=== PATIENT | female | born 1955 | race Caucasian/White ===

== ENCOUNTER → 2016-08-06 | Outpatient (CLI) | payer OTHER ==
--- OUTSIDE RECORDS SUMMARY | 2016-08-06 12:16 | XMS REPORT ---
Author LILIAM Montilla [facility] eClinicalWorks Address Unknown Phone Unavailable Care Team Providers Care Rate Marker Name Role Phone LILIAM ROCKWELL CP Unavailable Allergies, Adverse Reactions, Alerts Substance Reaction Event Type N.K.D.A. Info Not Available Non Drug Allergy Problems Problem Type Condition Code Onset Dates Condition Status Problem Essential hypertension I10 Active Assessment Type 2 diabetes mellitus without complication, without long-term current use of insulin E11.9 Active Problem Type 2 diabetes mellitus without complication, without long-term current use of insulin E11.9 Active Assessment Essential hypertension I10 Active Medications Medication Code System Code Instructions Start Date End Date Status Dosage Metformin HCl [facility] [address]-28 500 MG Orally Twice a day 1 tablet with meals Lisinopril [facility] [address]-29 10 mg Orally Once a day January 06, 2016 1 tablet Actos [facility] [address]-91 30 MG Orally Once a day January 06, 2016 1 tablet MetFORMIN HCl ER [facility] 2001 [address]-50 500 MG Orally twice a day January 06, 2016 1 tablet with evening meal Procedures Procedure Coding System Code Date MICROALBUMIN, SEMIQUANT CPT-4 42458 January 06, 2016 Office Visit, New Pt., Level 4 CPT-4 97713 January 06, 2016 GLYCATED HEMOGLOBIN TEST CPT-4 88490 January 06, 2016 Vital Signs Date/Time: January 06, 2016 Cardiac Monitoring Heart Rate 84 bpm Weight 172.3 lbs Height 64 in Blood Pressure Diastolic 76 mmHg Blood Pressure Systolic 148 mmHg Results No Known Results Summary Purpose eClinicalWorks Submission
--- NOTE | 2016-08-06 14:28 | Diagnostic Imaging Report ---
PROCEDURE: US Carotid Duplex Bilateral. TECHNIQUE: Multiple real-time grayscale images were obtained over the carotid arteries in various projections bilaterally. Additional duplex Doppler and color Doppler images were also obtained. INDICATION: Diabetes, hypertension, and tobacco use. FINDINGS: There are focally elevated velocities in the left internal carotid artery up to 264 cm/s. The ICA/CCA ratio on the left is 3.6. There are no focally elevated velocities in the right internal carotid artery. The right ICA/CCA ratio is 0.8. There is antegrade flow in both vertebral arteries. IMPRESSION: Focal plaque at the origin of the left internal carotid artery. Spectral analysis correlates with a 60-99% stenosis in the left internal carotid artery. No significant stenosis in the right internal carotid artery. Dictated by: Dictated on workstation # [id number]
== END ==
LOC: RAD 12:13
PROVIDERS: ATTEND Nurse Practitioner Adult Health
DX: E11.3211 Type 2 diabetes mellitus with mild nonproliferative diabetic retinopathy with macular edema, right eye (principal); I65.22 Occlusion and stenosis of left carotid artery
CPT/HCPCS: 93880

== ENCOUNTER → 2016-09-06 | Outpatient (CLI) | payer OTHER ==
[2016-09-06 11:56] LABS: ALBUMIN 3.8 G/DL (3.2-4.5); CREATININE SERUM 1.21 MG/DL (0.60-1.30); PHOSPHORUS 3.8 MG/DL (2.3-4.7)
== END ==
LOC: LAB 11:16
PROVIDERS: ATTEND Nurse Practitioner
DX: I77.9 Disorder of arteries and arterioles, unspecified (principal); R55 Syncope and collapse; R42 Dizziness and giddiness; I65.29 Occlusion and stenosis of unspecified carotid artery
CPT/HCPCS: 36415; 80069

== ENCOUNTER → 2016-09-06 | Outpatient (CLI) | payer OTHER ==
[~2016-09-06] MED LIST: CATHETER FLUSH 10 ML SYR IV PRN; REGADENOSON 0.4 MG/5 ML SYR (LEXISCAN) IV ONE
[2016-09-06 09:49] VITALS: BP 138/74
[2016-09-06 09:53] VITALS: BP 133/71
[2016-09-06 09:55] VITALS: BP 130/68
--- NOTE | 2016-09-12 08:22 | STRESS TEST ---
PROCEDURE PHYSICIAN: ROBERTH ALEXANDRA DATE OF PROCEDURE: 09/06/2016 RESTING AND POST REGADENOSON TECHNETIUM 99M TETROFOSMIN SPECT CT IMAGING ORDERING PHYSICIAN: Dr. Alexandra. PRIMARY PHYSICIAN: Dr. Castillo OTHER PHYSICIAN: Marla Melo APRN CLINICAL DIAGNOSES: 1. Carotid arterial disease. 2. Shortness of breath. Baseline images were carried out after injection of 10.41 mCi technetium 99m tetrofosmin. This was followed by 0.4 mg of regadenoson and 30.2 mCi of technetium 99m tetrofosmin for stress imaging. The electrocardiogram showed sinus rhythm at baseline. The electrocardiogram did not change significantly with the regadenoson infusion. Overall, the patient tolerated the procedure well. Review of images at rest and following stress, does not indicate any significant perfusion defects consistent with significant myocardial ischemia or infarction. Gated images show normal global left ventricular systolic function with normal regional wall motion. Left ventricular ejection fraction is calculated to be 73%. Left end-diastolic volume is 32 mL. TID is absent (1.07). CONCLUSION: 1. No evidence of any significant myocardial ischemia or infarction on this study. 2. Normal regional wall motion. 3. Normal global left ventricular systolic function with a calculated ejection fraction of 73%. 4. Normal left ventricular cavity size. Job ID: [id number] Dictated Date: 09/11/2016 16:59:31 Fish Receiver Date: 09/12/2016 08:18:47 / sybil LACY
== END ==
LOC: CARD 08:04
PROVIDERS: ATTEND Internal Medicine Cardiovascular Disease
DX: I77.9 Disorder of arteries and arterioles, unspecified (principal)
CPT/HCPCS: 78452; 93017

== ENCOUNTER → 2016-09-10 | Outpatient (CLI) | payer OTHER ==
--- NOTE | 2016-09-11 09:21 | ECHOCARDIOGRAPHY REPORT ---
PROCEDURE PHYSICIAN: ROBERTH ALEXANDRA DATE OF PROCEDURE: 09/10/2016 TWO DIMENSIONAL ECHOCARDIOGRAM REPORT PRIMARY PHYSICIAN: Dr. Castillo OTHER PHYSICIAN: Marla Melo APRN REFERRING PHYSICIAN: ORDERING PHYSICIAN: Dr. Alexandra INDICATION FOR THE PROCEDURE: Shortness of breath. MEASUREMENTS DERIVED VALUES LV DIAMETER (LAX) NORMALS NORMALS Diastolic 4.7 (3.6-5.2) Eject. Fract. (60%+/-6%) Systolic (2.3-3.9) Diastolic Vol. % Shortening (0.22-0.42) Systolic Vol. Aortic Root 2.9 IVS THICKNESS Diastolic 0.7 (0.6-1.1) LVPW THICKNESS Diastolic 1 (0.6-1.1) LA DIAMETER Systolic 3.7 (2.1-3.7) DESCRIPTION: Two dimensional echocardiography shows normal global left ventricular systolic function without distinct regional wall motion abnormality. Left ventricular ejection fraction is approximately 60%. Doppler imaging did not show significant valvular regurgitation or stenosis. Pulmonary artery systolic pressure estimated to be within normal limits. There is no evidence of significant intracardiac shunt on this transthoracic echocardiographic study. Inferior vena cava appears to be of normal size and appears mostly collapsed on this study. CONCLUSION: 1. Normal global left ventricular systolic function with an ejection fraction of 60%. 2. No evidence of significant valvular regurgitation or stenosis. 3. Pulmonary artery systolic pressure is estimated to be within normal limits. Job ID: [id number] Dictated Date: 09/11/2016 08:24:49 Syrup Mixer Helper Date: 09/11/2016 09:14:38 / sybil
== END ==
LOC: CARD 11:29
PROVIDERS: ATTEND Internal Medicine Cardiovascular Disease
DX: I77.9 Disorder of arteries and arterioles, unspecified (principal)
CPT/HCPCS: 93306

== ENCOUNTER → 2016-09-10 | Outpatient (CLI) | payer OTHER ==
[~2016-09-10] MED LIST changes: +IOHEXOL 350 MG/ML 100 ML (OMNIPAQUE 350) VIAL IV ONE; +NS 100 ML (IVPB) BAG IV ONE; -REGADENOSON 0.4 MG/5 ML SYR (LEXISCAN) IV ONE
[2016-09-10 09:14] LABS: ALBUMIN 3.8 G/DL (3.2-4.5); CREATININE SERUM 1.19 MG/DL (0.60-1.30); PHOSPHORUS 4.3 MG/DL (2.3-4.7); POTASSIUM 4.8 MMOL/L (3.6-5.0)
--- NOTE | 2016-09-10 12:23 | Diagnostic Imaging Report ---
PROCEDURE: CT angiography of the head and CT angiography of the neck with and without contrast. TECHNIQUE: Contiguous noncontrast images were obtained from the skull base through the vertex. After intravenous contrast administration, helical CT angiography of the neck was performed. Source data was reformatted into multiple MIP projections. Delayed post contrast acquisition was also obtained. INDICATION: Carotid artery stenosis suggested on ultrasound. FINDINGS: CTA NECK: The aortic arch is patent. There is normal variation of a direct origin of the left vertebral artery from the aortic arch. The left vertebral artery is small in caliber. The right vertebral artery is dominant. Both vertebral arteries appear patent without significant stenosis. The brachycephalic artery, the right subclavian artery and the right common carotid arteries appear patent with calcified plaque seen at the origin of the right internal carotid artery and bifurcation with estimated degree of stenosis of less than 50% at the origin of the right ICA. The right ECA is patent. On the left side, the left ECA is patent. There is prominent plaque at the distal aspect of the left common carotid artery extending to the left internal carotid artery proximal segment with suggestion of high-grade stenosis estimated at around 80%. The plaque length is around 2 cm extending from the distal common carotid into the proximal internal carotid artery. The external carotid artery is patent. The left subclavian artery appears patent. Soft tissue structures of the neck appear grossly unremarkable. There is a 4 mm indeterminate pulmonary nodule in the lateral aspect of the right upper lobe. CTA HEAD: Unenhanced scan through the head was first obtained which demonstrates no intracranial hemorrhage. The brain parenchyma appears unremarkable. Postcontrast scans demonstrate no enhancing lesion on the parenchymal phase scanning. Angiographic phase of the study demonstrates atherosclerotic plaque in the internal carotid artery on the right side intracranial segments with no high-grade stenosis. A small caliber of the A1 segment of the left anterior cerebral artery is seen with majority of the perfusion appears to be from the ACOM. 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 The left MCA is patent. The distal aspect of the basilar artery is small with well developed bilateral posterior communicating arteries representing the mean perfusion source for the SLEEVE [employer]OTTOM [employer]LLER bilaterally. 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 This appears to contribute to perfusion of the basilar artery proximal to the origin of the superior cerebellar arteries bilaterally. No other aneurysms are seen. There is no major vascular occlusion identified. The main dural venous sinuses appear patent. IMPRESSION: CTA NECK: 1. Prominent atherosclerotic plaque at the distal left CCA extending to the left ICA resulting in estimated 80% stenosis in the proximal left ICA. 2. Less than 50% stenosis in the right ICA. 3. The lateral right upper lobe 4 mm pulmonary nodule is indeterminate. A followup low dose CT chest without contrast in 6-12 months is recommended to observe this lesion. CTA HEAD: 1. 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 2. No intracranial central vascular high-grade stenosis or occlusion seen. Report was faxed to office of Sarahy Farmer by lexy at 12:23 p.m. Dictated by: Dictated on workstation # [id number]
== END ==
LOC: RAD 08:12
PROVIDERS: ATTEND Nurse Practitioner
DX: I65.22 Occlusion and stenosis of left carotid artery (principal); R42 Dizziness and giddiness; E11.9 Type 2 diabetes mellitus without complications; R55 Syncope and collapse
CPT/HCPCS: 36415; 70496; 70498; 80069

== ENCOUNTER → 2017-09-06 | Outpatient (CLI) | payer SELFPAY ==
[2017-09-06 10:49] LABS: CREATININE SERUM 1.63 MG/DL (0.60-1.30)
--- NOTE | 2017-09-06 13:02 | Diagnostic Imaging Report ---
PROCEDURE: MR imaging left lower extremity without contrast. TECHNIQUE: Multiplanar, multisequence non contrast enhanced MR imaging of the left lower extremity was accomplished. 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 FINDINGS: High-resolution images through the forefoot. The marrow signal appears normal throughout the metatarsals as well as the phalanges. The MP joints appear normal with no effusion. Interphalangeal joints are normal. The flexor and extensor tendons appear normal. Marker is placed over ulceration along the base of the fourth proximal phalanx. Ulceration extends just into the subcutaneous fat and does not extend to the surface of the flexor tendons. IMPRESSION: 1. Superficial ulcer base of the fourth digit left foot. No findings are seen to indicate abscess or osteomyelitis at this time. Dictated by: Dictated on workstation # [id number]
== END ==
LOC: RAD 10:13
PROVIDERS: ATTEND Internal Medicine
DX: E11.621 Type 2 diabetes mellitus with foot ulcer (principal); L97.522 Non-pressure chronic ulcer of other part of left foot with fat layer exposed
CPT/HCPCS: 36415; 82565; 84520

== ENCOUNTER → 2018-07-04 | Outpatient (CLI) | payer OTHER ==
[~2018-07-04] MED LIST changes: -CATHETER FLUSH 10 ML SYR IV PRN; -IOHEXOL 350 MG/ML 100 ML (OMNIPAQUE 350) VIAL IV ONE; -NS 100 ML (IVPB) BAG IV ONE; +RT-ALBUTEROL SULF 2.5 MG/3 ML PRE-MIX VIAL INH ONE
--- NOTE | 2018-07-04 17:47 | Diagnostic Imaging Report ---
INDICATION: Chest pain. TIME OF EXAM: 2:55 p.m. COMPARISON: No prior studies are available for comparison. FINDINGS: Heart size is normal. There is minimal linear density in the left base consistent with scarring or atelectasis. Otherwise, lungs are clear. No effusion or pneumothorax is seen. IMPRESSION: Minimal left basilar scarring or atelectasis. No acute feature is seen. Dictated by: Dictated on workstation # [id number]
--- NOTE | 2018-07-04 17:49 | Diagnostic Imaging Report ---
INDICATION: Back pain. TIME OF EXAM: 3:02 p.m. FINDINGS: Three views of the lumbar spine were obtained. Curvature and alignment are normal. Vertebral body heights and disc spaces are well maintained. No fracture or subluxation is seen. There is some degenerative spurring at multiple levels of the lumbar spine. Abdominal aorta is partially calcified. IMPRESSION: Mild lumbar spondylosis. No acute bony abnormality is detected. Dictated by: Dictated on workstation # [id number]
== END ==
LOC: RT 14:07
PROVIDERS: ATTEND Neuromusculoskeletal Medicine, Sports Medicine
DX: Z02.71 Encounter for disability determination (principal); M47.816 Spondylosis without myelopathy or radiculopathy, lumbar region
CPT/HCPCS: 71046; 72100; 94060; 94729

== ENCOUNTER 2018-12-27 13:06 | Inpatient (IN) | payer MEDICAID, OTHER ==
[~2018-12-27] VITALS: Ht 162.6 cm; Wt 106.1 kg
--- NOTE | 2018-12-27 13:47 | ED Respiratory ---
General Chief Complaint: Respiratory Problems Stated Complaint: SOB; NECK TIGHTNESS; SWOLLEN FEET Nursing Triage Note: patient reports increase SOA and neck tightness. Source: patient Exam Limitations: no limitations History of Present Illness Date Seen by Provider: Dec 27, 2018 Time Seen by Provider: 13:44 Initial Comments Patient complains of shortness of breath and leg swelling and tightness in neck and chest for "2 years". Symptoms worse over the past 3 days. She does smoke. She denies fevers or chills. She has a nonproductive cough. History of ? NSTEMI. Takes Plavix Allergies and Home Medications Allergies Coded Allergies: No Known Drug Allergies (Unverified , 12/27/18) Patient Home Medication List Home Medication List Reviewed: Yes Review of Systems Review of Systems Constitutional: malaise, weakness Respiratory: cough, dyspnea on exertion Cardiovascular: No chest pain; edema Gastrointestinal: No vomiting Musculoskeletal: no symptoms reported Skin: no symptoms reported Psychiatric/Neurological: No Symptoms Reported All Other Systems Reviewed Negative Unless Noted: Yes Past Bshpmqd-[id number]-Btpwvp Hx Patient Social History Alcohol Use: Denies Use Recreational Drug Use: No Smoking Status: Current Everyday Smoker Type Used: Cigarettes 2nd Hand Smoke Exposure: No Recent Foreign Travel: No Contact w/Someone Who Travel: No Recent Infectious Disease Expo: No Past Medical History Surgeries: Yes (bilateral carotid, bilateral knee) Respiratory: Yes Chronic Bronchitis, COPD Cardiac: Yes Hypertension Neurological: Yes Neuropathy Genitourinary: No Gastrointestinal: No Musculoskeletal: No Endocrine: No HEENT: No Cancer: No Psychosocial: Yes Anxiety, Depression Blood Disorders: No Physical Exam Vital Signs - First Documented 12/27/18 13:25 Temp 99.8 Pulse 86 Resp 16 B/P (MAP) 97/72 (80) Pulse Ox 95 O2 Delivery Room Air O2 Flow Rate 2.00 Capillary Refill : Less Than 3 Seconds Height: 5'4.00" Weight: 200lbs. oz. 90.059207jv; BMI Method:Stated General Appearance: WD/WN, no apparent distress Eyes: Bilateral Eye Normal Inspection, Bilateral Eye PERRL, Bilateral Eye EOMI HEENT: PERRL/EOMI, pharynx normal Neck: supple Respiratory: lungs clear, normal breath sounds, decreased breath sounds Cardiovascular: regular rate, rhythm, other (1+ pedal edema) Gastrointestinal: non tender, soft Extremities: normal inspection Neurologic/Psychiatric: alert, normal mood/affect Skin: normal color, warm/dry Focused Exam Lactate Level 12/27/18 13:34: Lactic Acid Level 1.64 Lactic Acid Level Laboratory Tests Test 12/27/18 13:34 Lactic Acid Level 1.64 MMOL/L (0.50-2.00) Progress/Results/Core Measures Suspected Sepsis Recent Fever Within 48 Hours: No Infection Criteria Present: None New/Unexplained Altered Menta: No Sepsis Screen: No Definite Risk SIRS Temperature:99.8 Pulse: 86 Respiratory Rate: 16 Laboratory Tests 12/27/18 13:34: White Blood Count 6.6 Blood Pressure 97 /72 Mean: 80 12/27/18 13:34: Lactic Acid Level 1.64 Laboratory Tests 12/27/18 13:34: Creatinine 1.49H, Platelet Count 189, Total Bilirubin 0.2 Results/Orders Lab Results Laboratory Tests Test 12/27/18 13:34 Range/Units White Blood Count 6.6 4.3-11.0 10^3/uL Red Blood Count 3.55 L 4.35-5.85 10^6/uL Hemoglobin 10.8 L 11.5-16.0 G/DL Hematocrit 36 35-52 % Mean Corpuscular Volume 101 H 80-99 FL Mean Corpuscular Hemoglobin 30 25-34 PG Mean Corpuscular Hemoglobin Concent 30 L 32-36 G/DL Red Cell Distribution Width 17.7 H 10.0-14.5 % Platelet Count 189 130-400 10^3/uL Mean Platelet Volume 10.2 7.4-10.4 FL Neutrophils (%) (Auto) 54 42-75 % Lymphocytes (%) (Auto) 31 12-44 % Monocytes (%) (Auto) 10 0-12 % Eosinophils (%) (Auto) 3 0-10 % Basophils (%) (Auto) 0 0-10 % Neutrophils # (Auto) 3.6 1.8-7.8 X 10^3 Lymphocytes # (Auto) 2.0 1.0-4.0 X 10^3 Monocytes # (Auto) 0.7 0.0-1.0 X 10^3 Eosinophils # (Auto) 0.2 0.0-0.3 10^3/uL Basophils # (Auto) 0.0 0.0-0.1 10^3/uL Sodium Level 145 135-145 MMOL/L Potassium Level 4.0 3.6-5.0 MMOL/L Chloride Level 103 98-107 MMOL/L Carbon Dioxide Level 31 21-32 MMOL/L Anion Gap 11 5-14 MMOL/L Blood Urea Nitrogen 21 H 7-18 MG/DL Creatinine 1.49 H 0.60-1.30 MG/DL Estimat Glomerular Filtration Rate 35 BUN/Creatinine Ratio 14 Glucose Level 183 H 70-105 MG/DL Lactic Acid Level 1.64 0.50-2.00 MMOL/L Calcium Level 8.2 L 8.5-10.1 MG/DL Corrected Calcium 8.7 8.5-10.1 MG/DL Magnesium Level 1.8 1.8-2.4 MG/DL Total Bilirubin 0.2 0.1-1.0 MG/DL Aspartate Amino Transf (AST/SGOT) 21 5-34 U/L Alanine Aminotransferase (ALT/SGPT) 20 0-55 U/L Alkaline Phosphatase 101 40-136 U/L Troponin I < 0.30 <0.30 NG/ML Pro-B-Type Natriuretic Peptide 4586.0 H <75.0 PG/ML Total Protein 6.9 6.4-8.2 GM/DL Albumin 3.4 3.2-4.5 GM/DL My Orders Orders - RENE SÁNCHEZ MD Cbc With Automated Diff (12/27/18 13:21) Magnesium (12/27/18 13:21) Chest 1 View Ap/Pa Only (12/27/18 13:21) Ekg Tracing (12/27/18 13:21) Comprehensive Metabolic Panel (12/27/18 13:21) O2 (12/27/18 13:21) Monitor-Rhythm Ecg Trace Only (12/27/18 13:21) Ed Iv/Invasive Line Start (12/27/18 13:21) Troponin I (12/27/18 13:21) Probnp Fs (12/27/18 13:21) Lactic Acid Analyzer (12/27/18 13:35) Furosemide Injection (Lasix Injection) (12/27/18 14:45) Medications Given in ED Current Medications Medications Dose Ordered Sig/Eileen Route Start Time Stop Time Status Last Admin Dose Admin Furosemide 80 mg ONCE ONCE IVP 12/27/18 14:45 12/27/18 14:46 DC 12/27/18 14:50 80 MG Vital Signs/I&O 7/13/19 7/13/19 13:25 13:51 Temp 99.8 Pulse 86 Resp 16 B/P (MAP) 97/72 (80) Pulse Ox 95 O2 Delivery Room Air Nasal Cannula O2 Flow Rate 2.00 2.00 Capillary Refill : Less Than 3 Seconds Blood Pressure Mean: 80 Progress Note : Time: 14:44 Progress Note Signs and symptoms consistent with congestive heart failure. 's admission for diuresis and oxygen. I spoke with Dr. Morris who agrees. ECG Initial ECG Impression Date: Dec 27, 2018 Initial ECG Impression Time: 13:46 Initial ECG Rate: 77 Initial ECG Rhythm: Normal Sinus Initial ECG Intervals: Normal Initial ECG Impression: Nonspecific Changes Departure Communication (Admissions) Time/Spoke to Admitting Phy: 14:45 Dr. Morris agrees with admission at [facility] Impression Primary Impression: CHF exacerbation Additional Impression: Hypoxia Disposition: 09 ADMITTED INPATIENT Condition: Stable Admissions Decision to Admit Reason: Admit from ER (Trauma) Decision to Admit/Date: Dec 27, 2018 Time/Decision to Admit Time: 14:45 Departure-Patient Inst. Referrals: KARO QUIJANO APRN (PCP/Family) Primary Care Physician RENE SÁNCHEZ MD Dec 27, 2018 13:47
[2018-12-27 13:49] LABS: HEMATOCRIT 36 % (35-52); HEMOGLOBIN 10.8 G/DL (11.5-16.0); MEAN CORPUSCULAR HEMOGLOBIN 30 PG (25-34); WHITE BLOOD COUNT 6.6 10^3/uL (4.3-11.0)
[2018-12-27 13:50] LABS: BASOPHILS % (AUTO) 0 % (0-10); EOSINOPHILS # (AUTO) 0.2 10^3/uL (0.0-0.3); EOSINOPHILS % (AUTO) 3 % (0-10); LYMPHOCYTES % (AUTO) 31 % (12-44); MEAN CORPUSCULAR HGB CONC 30 G/DL (32-36); MEAN CORPUSCULAR VOLUME 101 FL (80-99); MEAN PLATELET VOLUME 10.2 FL (7.4-10.4); MONOCYTES # (AUTO) 0.7 X 10^3 (0.0-1.0); MONOCYTES % (AUTO) 10 % (0-12); NEUTROPHILS # (AUTO) 3.6 X 10^3 (1.8-7.8); NEUTROPHILS % (AUTO) 54 % (42-75); PLATELET COUNT 189 10^3/uL (130-400); RED CELL DISTRIBUTION WIDTH 17.7 % (10.0-14.5)
[2018-12-27 14:12] LABS: ALBUMIN 3.4 GM/DL (3.2-4.5); BILIRUBIN,TOTAL 0.2 MG/DL (0.1-1.0); CALCIUM 8.2 MG/DL (8.5-10.1); CREATININE SERUM 1.49 MG/DL (0.60-1.30); TOTAL PROTEIN 6.9 GM/DL (6.4-8.2)
[2018-12-27 14:27] LABS: MAGNESIUM 1.8 MG/DL (1.8-2.4)
[2018-12-27] MEDS ORDERED: FOLI1TAB57 (14:28)
[2018-12-27] MEDS ORDERED: CLOP75TA69 PO (14:28)
[2018-12-27] MEDS ORDERED: PROP20TA5 (14:28)
[2018-12-27] MEDS ORDERED: ALBU8.5H2 (14:28)
[2018-12-27] MEDS ORDERED: TIOT18CA2 PO (14:28)
[2018-12-27] MEDS ORDERED: OMG1KC (14:28)
[2018-12-27] MEDS ORDERED: BUSP5TAB59 (14:28)
[2018-12-27] MEDS ORDERED: LSNP10T (14:28)
[2018-12-27] MEDS ORDERED: GABA-488 (14:28)
[2018-12-27] MEDS ORDERED: PIOG15TA2 (14:28)
[2018-12-27] MEDS ORDERED: SIMV20TA PO (14:28)
[2018-12-27] MEDS ORDERED: SERT25TA PO (14:28)
--- NOTE | 2018-12-27 14:29 | Diagnostic Imaging Report ---
PATIENT HISTORY: Shortness of air. TECHNIQUE: Single frontal view of the chest. COMPARISON: 07/04/2018. FINDINGS: There is mild cardiomegaly. No focal consolidation is seen. Lung volumes are normal. No pleural effusion or pneumothorax is seen. No acute osseous abnormality is seen. IMPRESSION: Mild cardiomegaly with no acute pulmonary abnormality seen. Dictated by: Dictated on workstation # [id number]
[2018-12-27] MEDS ORDERED: FUROSEMIDE 40 MG/4 ML INJ (LASIX) IVP ONE (14:45)
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
--- OUTSIDE RECORDS SUMMARY | 2018-12-27 14:50 | XMS REPORT ---
Author LILIAM Montilla [facility] [place] eClinicalWorks Address Unknown Phone Unavailable Care Team Providers Care Reliability Technicians Name Role Phone LILIAM ROCKWELL CP Unavailable [...] Date End Date Status Dosage Metformin HCl [facility] [address]-70 500 MG Orally Twice a day 1 tablet with meals Lisinopril [facility] [address]-18 10 mg Orally Once a day January 06, 2016 1 tablet Actos [facility] [address]-18 30 MG Orally Once a day January 06, 2016 1 tablet MetFORMIN HCl ER [facility] [address]-28 500 MG Orally twice a day January 06, 2016 1 tablet with evening meal Procedures Procedure Coding System Code Date MICROALBUMIN, SEMIQUANT CPT-4 47940 January 06, 2016 Office Visit, New Pt., Level 4 CPT-4 22786 January 06, 2016 GLYCATED HEMOGLOBIN TEST CPT-4 92354 January 06, 2016 Vital Signs Date/Time: January 06, 2016 Cardiac Monitoring Heart Rate 84 bpm Weight 172.3 lbs Height 64 in Blood Pressure Diastolic 76 mmHg Blood Pressure Systolic 148 mmHg Results No Known Results Summary Purpose eClinicalWorks Submission
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
--- OUTSIDE RECORDS SUMMARY | 2018-12-27 14:51 | XMS REPORT ---
Author LILIAM Montilla Organization [employer] Address Unknown Phone Unavailable Care Team Providers Care Showroom Sales Assistant Name Role Phone LILIAM ROCKWELL CP Unavailable Allergies No Known Allergies Problems Problem Type Condition Code Onset Dates Condition Status Problem Essential hypertension I10 Active Problem Type 2 diabetes mellitus without complication, without long-term current use of insulin E11.9 Active Medications No Known Medications Results No Known Results Summary Purpose [employer] Submission
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
--- OUTSIDE RECORDS SUMMARY | 2018-12-27 14:51 | XMS REPORT ---
Author LILIAM Montilla [facility] [place] [employer] Address Unknown Phone Unavailable Care Team Providers Care Design Agent Name Role Phone LILIAM ROCKWELL CP Unavailable Allergies No Known Allergies Problems Problem Type Condition Code Onset Dates Condition Status Problem Type 2 diabetes mellitus without complication, without long-term current use of insulin E11.9 Active Problem Essential hypertension I10 Active Problem Anxiety F41.9 Active Medications No Known Medications Results No Known Results Summary Purpose [employer] Submission
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
--- OUTSIDE RECORDS SUMMARY | 2018-12-27 14:51 | XMS REPORT ---
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 Unknown Non Drug Allergy Jun, Unknown SOCIAL HISTORY No smoking Hx information available PLAN OF CARE Activity Details Follow Up 3 Months, prn Reason:dm, htn VITAL SIGNS Height 64 in 2016-07-02 Weight 185.0 lbs 2016-07-02 Temperature 98.2 degrees Fahrenheit 2016-07-02 Heart Rate 118 bpm 2016-07-02 Respiratory Rate 20 2016-07-02 BMI 31.75 kg/m2 2016-07-02 Blood pressure systolic 140 mmHg 2016-07-02 Blood pressure diastolic 70 mmHg 2016-07-02 MEDICATIONS Medication Instructions Dosage Frequency Start Date End Date Duration Status Actos 30 MG Orally Once a day 1 tablet 24h Dec, 90 days Active Lisinopril 10 mg Orally Once a day 1 tablet 24h Dec, 90 days Active MetFORMIN HCl ER 500 MG Orally twice a day 1 tablet 12h Dec, 30 days Active BusPIRone HCl 10 mg Orally Twice a day 1 tablet 12h 30 Active RESULTS Name Result Date Reference Range A1C (IN HOUSE) 2016-07-02 A1C IN HOUSE 6.4 4.3 - 5.6 % Previous A1c 11.2 Lot 0664 Exp date CBC 2016-07-02 WBC 9.2 3.4-10.8 RBC 4.19 3.77-5.28 Hemoglobin 12.7 11.1-15.9 Hematocrit 38.9 34.0-46.6 MCV 93 79-97 MCH 30.3 26.6-33.0 MCHC 32.6 31.5-35.7 RDW 14.6 12.3-15.4 Platelets 256 150-379 Neutrophils 50 Lymphs 35 Monocytes 10 Eos 3 Basos 0 Neutrophils (Absolute) 4.7 1.4-7.0 Lymphs (Absolute) 3.2 0.7-3.1 Monocytes(Absolute) 0.9 0.1-0.9 Eos (Absolute) 0.3 0.0-0.4 Baso (Absolute) 0.0 0.0-0.2 Immature Granulocytes 2 Immature Grans (Abs) 0.2 0.0-0.1 LIPID PANEL 2016-07-02 Cholesterol, Total 180 100-199 Triglycerides 334 0-149 HDL Cholesterol 35 >39 VLDL Cholesterol Winston 67 5-40 LDL Cholesterol Calc 78 0-99 Comment: CMP 2016-07-02 Glucose, Serum 144 65-99 BUN 20 8-27 Creatinine, Serum 1.11 0.57-1.00 eGFR If NonAfricn Am 54 >59 eGFR If Africn Am 62 >59 BUN/Creatinine Ratio 18 11-26 Sodium, Serum 139 134-144 Potassium, Serum 4.9 3.5-5.2 Chloride, Serum 99 96-106 Carbon Dioxide, Total 24 18-29 Calcium, Serum 9.3 8.7-10.3 Protein, Total, Serum 7.6 6.0-8.5 Albumin, Serum 4.3 3.6-4.8 Globulin, Total 3.3 1.5-4.5 A/G Ratio 1.3 1.1-2.5 Bilirubin, Total <0.2 0.0-1.2 Alkaline Phosphatase, S 127 39-117 AST (SGOT) 17 0-40 ALT (SGPT) 22 0-32 PROCEDURES Procedure Date Ordered Related Diagnosis Body Site COMPLETE CBC W/AUTO DIFF WBC Jul 02, 2016 COMPREHEN METABOLIC PANEL Jul 02, 2016 Office Visit, Est Pt., Level 4 Jul 02, 2016 LIPID PANEL Jul 02, 2016 DEBBIE, ROUTINE* Jul 02, 2016 IMMUNIZATIONS No Known Immunizations
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
--- OUTSIDE RECORDS SUMMARY | 2018-12-27 14:51 | XMS REPORT ---
Author Author LILIAM ROCKWELL Organization [facility] Address [address] [place] [address] Care Team Providers Care Script Writer Name Role Phone JUAN F ROCKWELLNETTE Unavailable PROBLEMS Type Condition ICD9-CM Code VFD82-NH Code Onset Dates Condition Status SNOMED Code Problem Anxiety F41.9 Active 40475097 Problem Type 2 diabetes mellitus without complication, without long-term current use of insulin E11.9 Active 261153700 Problem Essential hypertension I10 Active 04281731 Assessment Type 2 diabetes mellitus without complication, without long-term current use of insulin E11.9 Feb, Active 345258158 ALLERGIES Substance Reaction Event Type Date Status N.K.D.A. Unknown Non Drug Allergy Feb, Unknown SOCIAL HISTORY No smoking Hx information available PLAN OF CARE VITAL SIGNS Height 64 in 2016-02-23 Weight 173.7 lbs 2016-02-23 Heart Rate 118 bpm 2016-02-23 Respiratory Rate 20 2016-02-23 BMI 29.81 kg/m2 2016-02-23 Blood pressure systolic 143 mmHg 2016-02-23 Blood pressure diastolic 76 mmHg 2016-02-23 MEDICATIONS Medication Instructions Dosage Frequency Start Date End Date Duration Status Lisinopril 10 mg Orally Once a day 1 tablet 24h Dec, Active MetFORMIN HCl ER 500 MG Orally twice a day 1 tablet 12h Dec, Active BusPIRone HCl 10 mg Orally Twice a day 1 tablet 12h Feb, Active Actos 30 MG Orally Once a day 1 tablet 24h Dec, Active RESULTS No Results PROCEDURES Procedure Date Ordered Related Diagnosis Body Site Office Visit, Est Pt., Level 4 Feb 23, 2016 IMMUNIZATIONS No Known Immunizations
--- OUTSIDE RECORDS SUMMARY | 2018-12-27 14:51 | XMS REPORT ---
Author LILIAM Montilla [facility] eClinicalWorks Address Unknown Phone Unavailable Care Team Providers Care Social Organization Professor Name Role Phone LILIAM ROCKWELL Unavailable Allergies No Known Allergies Problems Problem Type Condition Code Onset Dates Condition Status Problem Type 2 diabetes mellitus without complication, without long-term current use of insulin E11.9 Active Problem Essential hypertension I10 Active Problem Anxiety F41.9 Active Medications Medication Code System Code Instructions Start Date End Date Status Dosage BusPIRone HCl [facility] [address]-15 10 mg Orally Twice a day Feb 23, 2016 1 tablet Results No Known Results Summary Purpose eClinicalWorks Submission
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
--- OUTSIDE RECORDS SUMMARY | 2018-12-27 14:52 | XMS REPORT ---
Author LILIAM Montilla [facility] eClinicalWorks Address Unknown Phone Unavailable Care Team Providers Care Rolling Attendant Name Role Phone LILIAM ROCKWELL CP Unavailable Allergies No Known Allergies Problems Problem Type Condition Code Onset Dates Condition Status Problem Essential hypertension I10 Active Problem Type 2 diabetes mellitus without complication, without long-term current use of insulin E11.9 Active Medications No Known Medications Vital Signs Date/Time: January 13, 2016 Blood Pressure Diastolic 62 mmHg Blood Pressure Systolic 132 mmHg Height 64 in Results No Known Results Summary Purpose eClinicalWorks Submission
--- OUTSIDE RECORDS SUMMARY | 2018-12-27 14:52 | XMS REPORT ---
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 Active 735038580 Problem Obesity (BMI 30.0-34.9) E66.9 Active 034817236894929 Problem Left-sided carotid artery disease I77.9 Active 403233849 Problem Type 2 diabetes mellitus without complication, without long-term current use of insulin E11.9 Active 640588041 Problem Essential hypertension I10 Active 76364578 Problem Carotid art occ w/o infarc I65.29 Active 569760709 Problem Anxiety F41.9 Active 90072188 ALLERGIES No Information SOCIAL HISTORY Never Assessed PLAN OF CARE VITAL SIGNS MEDICATIONS Unknown Medications RESULTS No Results PROCEDURES No Known procedures IMMUNIZATIONS No Known Immunizations MEDICAL (GENERAL) HISTORY Type Description Date Medical History Diabetes Type II Surgical History ACL repair on R knee 6981-9766 Hospitalization History 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
--- OUTSIDE RECORDS SUMMARY | 2018-12-27 14:52 | XMS REPORT ---
Author LILIAM Montilla [facility] eClinicalWorks Address Unknown Phone Unavailable Care Team Providers Care Tile And Marble Installer Name Role Phone LILIAM ROCKWELL CP Unavailable Allergies No Known Allergies Problems Problem Type Condition Code Onset Dates Condition Status Problem Type 2 diabetes mellitus without complication, without long-term current use of insulin E11.9 Active Problem Essential hypertension I10 Active Problem Anxiety F41.9 Active Medications No Known Medications Results No Known Results Summary Purpose eClinicalWorks Submission
--- OUTSIDE RECORDS SUMMARY | 2018-12-27 14:53 | XMS REPORT | Continuity of Care Document ---
Author Organization Unknown Address Unknown Allergies There is no data. Medications There is no data. Problems There is no data. Procedures There is no data. Results Test Result Range THYROID ANALYZER - 11/29/17 11:57 TSH 2.65 mIU/L 0.40-4.50 CMP - 03/07/18 09:47 GLUCOSE 157 mg/dL 65-99 UREA NITROGEN (BUN) 50 mg/dL 7-25 CREATININE 2.00 mg/dL 0.50-0.99 eGFR NON-AFR. ANDORRAN 26 mL/min/1.73m2 > OR=60 eGFR 30 mL/min/1.73m2 > OR=60 BUN/CREATININE RATIO 25 (calc) 6-22 SODIUM 138 mmol/L 135-146 POTASSIUM 5.6 mmol/L 3.5-5.3 CHLORIDE 108 mmol/L 98-110 CARBON DIOXIDE 24 mmol/L 20-32 CALCIUM 8.8 mg/dL 8.6-10.4 PROTEIN, TOTAL 7.6 g/dL 6.1-8.1 ALBUMIN 4.0 g/dL 3.6-5.1 GLOBULIN 3.6 g/dL (calc) 1.9-3.7 ALBUMIN/GLOBULIN RATIO 1.1 (calc) 1.0-2.5 BILIRUBIN, TOTAL 0.3 mg/dL 0.2-1.2 ALKALINE PHOSPHATASE 91 U/L 33-130 AST 27 U/L 10-35 ALT 32 U/L 6-29 LIPID PANEL - 12/01/18 13:14 CHOLESTEROL, TOTAL 112 mg/dL <200 HDL CHOLESTEROL 40 mg/dL >50 TRIGLYCERIDES 162 mg/dL <150 LDL-CHOLESTEROL 48 mg/dL (calc) NRG CHOL/HDLC RATIO 2.8 (calc) <5.0 NON HDL CHOLESTEROL 72 mg/dL (calc) <130 CMP - 12/01/18 13:14 GLUCOSE 135 mg/dL 65-139 UREA NITROGEN (BUN) 34 mg/dL 7-25 CREATININE 1.68 mg/dL 0.50-0.99 eGFR NON-AFR. ANDORRAN 32 mL/min/1.73m2 > OR=60 eGFR 37 mL/min/1.73m2 > OR=60 BUN/CREATININE RATIO 20 (calc) 6-22 SODIUM 137 mmol/L 135-146 POTASSIUM 4.1 mmol/L 3.5-5.3 CHLORIDE 106 mmol/L 98-110 CARBON DIOXIDE 23 mmol/L 20-32 CALCIUM 8.9 mg/dL 8.6-10.4 PROTEIN, TOTAL 7.5 g/dL 6.1-8.1 ALBUMIN 4.0 g/dL 3.6-5.1 GLOBULIN 3.5 g/dL (calc) 1.9-3.7 ALBUMIN/GLOBULIN RATIO 1.1 (calc) 1.0-2.5 BILIRUBIN, TOTAL 0.4 mg/dL 0.2-1.2 ALKALINE PHOSPHATASE 101 U/L 33-130 AST 31 U/L 10-35 ALT 23 U/L 6-29 CBC - 12/01/18 13:14 WHITE BLOOD CELL COUNT 5.7 Thousand/uL 3.8-10.8 RED BLOOD CELL COUNT 4.05 Million/uL 3.80-5.10 HEMOGLOBIN 12.1 g/dL 11.7-15.5 HEMATOCRIT 38.6 % 35.0-45.0 MCV 95.3 fL 80.0-100.0 MCH 29.9 pg 27.0-33.0 MCHC 31.3 g/dL 32.0-36.0 RDW 16.2 % 11.0-15.0 PLATELET COUNT 200 Thousand/uL 140-400 MPV 10.1 fL 7.5-12.5 ABSOLUTE NEUTROPHILS 3295 cells/uL 7310-4475 ABSOLUTE LYMPHOCYTES 1636 cells/uL 850-3900 ABSOLUTE MONOCYTES 536 cells/uL 200-950 ABSOLUTE EOSINOPHILS 211 cells/uL 15-500 ABSOLUTE BASOPHILS 23 cells/uL 0-200 NEUTROPHILS 57.8 % NRG LYMPHOCYTES 28.7 % NRG MONOCYTES 9.4 % NRG EOSINOPHILS 3.7 % NRG BASOPHILS 0.4 % NRG A1C - 12/01/18 13:14 HEMOGLOBIN A1c 6.2 % of total Hgb <5.7 BMP - 12/17/18 14:42 GLUCOSE 129 mg/dL 65-99 UREA NITROGEN (BUN) 14 mg/dL 7-25 CREATININE 1.33 mg/dL 0.50-0.99 eGFR NON-AFR. ANDORRAN 42 mL/min/1.73m2 > OR=60 eGFR 49 mL/min/1.73m2 > OR=60 BUN/CREATININE RATIO 11 (calc) 6-22 SODIUM 143 mmol/L 135-146 POTASSIUM 3.8 mmol/L 3.5-5.3 CHLORIDE 105 mmol/L 98-110 CARBON DIOXIDE 32 mmol/L 20-32 CALCIUM 8.8 mg/dL 8.6-10.4 Encounters ACCT No. Visit Date/Time Discharge Status Pt. Type Provider Facility Loc./Unit Complaint [id number] 12/23/2018 16:00:00 12/23/2018 23:59:[address] [facility] [id number] 12/17/2018 14:45:00 Document Registration [id number] 12/01/2018 13:15:00 Document Registration [id number] 03/07/2018 09:00:00 Document Registration [id number] 11/29/2017 10:00:00 Document Registration
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
--- OUTSIDE RECORDS SUMMARY | 2018-12-27 15:09 | XMS REPORT | Continuity of Care Document ---
[...] 7-25 CREATININE 2.00 mg/dL 0.50-0.99 eGFR NON-AFR. KOSOVAN 26 mL/min/1.73m2 > OR=60 eGFR 30 mL/min/1.73m2 [...] 7-25 CREATININE 1.68 mg/dL 0.50-0.99 eGFR NON-AFR. KOSOVAN 32 mL/min/1.73m2 > OR=60 eGFR 37 mL/min/1.73m2 [...] 10.1 fL 7.5-12.5 ABSOLUTE NEUTROPHILS 3295 cells/uL 8146-9365 ABSOLUTE LYMPHOCYTES 1636 cells/uL 850-3900 ABSOLUTE MONOCYTES [...] 7-25 CREATININE 1.33 mg/dL 0.50-0.99 eGFR NON-AFR. KOSOVAN 42 mL/min/1.73m2 > OR=60 eGFR 49 mL/min/1.73m2 > OR=60 BUN/CREATININE RATIO 11 (calc) 6-22 SODIUM 143 mmol/L 135-146 POTASSIUM 3.8 mmol/L 3.5-5.3 CHLORIDE 105 mmol/L 98-110 CARBON DIOXIDE 32 mmol/L 20-32 CALCIUM 8.8 mg/dL 8.6-10.4 Encounters ACCT No. Visit Date/Time Discharge Status Pt. Type Provider Facility Loc./Unit Complaint [id number] 12/23/2018 16:00:00 12/23/2018 23:59:59 [facility] [id number] 12/17/2018 14:45:00 Document Registration [id number] 12/01/2018 13:15:00 Document Registration [id number] 03/07/2018 09:00:00 Document Registration [id number] 11/29/2017 10:00:00 Document Registration
[2018-12-27 16:40] VITALS: BP 140/67
[2018-12-27 20:00] VITALS: BP 135/74
[2018-12-27] MEDS: FUROSEMIDE 40 MG/4 ML INJ (LASIX) IVP SCH (20:59)
[2018-12-28] VITALS: BP 125/74
[2018-12-28] MEDS: PROPRANOLOL 20 MG (INDERAL) TABLET PO SCH ×3 (00:21→20:45)
[2018-12-28] MEDS: GABAPENTIN 100 MG (NEURONTIN) CAP PO SCH ×4 (00:21→20:45)
[2018-12-28] MEDS: FUROSEMIDE 40 MG/4 ML INJ (LASIX) IVP SCH ×4 (03:00→20:46)
[2018-12-28 04:00] VITALS: BP 118/75
[2018-12-28] MEDS: CLOPIDOGREL 75 MG (PLAVIX) TABLET PO SCH (08:25)
[2018-12-28 12:00] VITALS: BP 115/54
[2018-12-28 13:03] VITALS: BP 118/75
--- NOTE | 2018-12-28 14:22 | Consultation-Cardiology ---
HPI-Cardiology Cardiology Consultation: Date of Consultation 12/28/18 Date of Admission Attending Physician Coreen Morris MD Admitting Physician Dennise Morin Aprn Consulting Physician Radha OSPINA MD HPI: Time Seen by a Provider: 14:00 Chief Complaint: Shortness of breath This is a 63-year-old lady with no known cardiac history. She is an active smoker who presents with shortness of breath for the last 2 years however became worse in the last few days. She denies any chest pain. Nonproductive cough. No syncope, near-syncope or palpitations. Review of Systems-Cardiology Review of Systems Constitutional: As described under HPI; No As described under HPI, No no symptoms reported, No chills, No fever, No lightheadedness Eyes: No As described under HPI, No no symptoms reported, No blindness, No blurred vision, No contact lenses, No drainage, No decreased acuity, No foreign body sensation, No pain, No vision change Ears/Nose/Throat: No As described under HPI, No no symptoms reported, No chroni c hearing loss, No ear discharge, No ear pain, No nasal drainage, No ulcerations Respiratory: No no symptoms reported; As described under HPI; No As described under HPI, No cough, No orthopnea; shortness of breath; No SOB with excertion Cardiovascular: No no symptoms reported; As described under HPI; No As described under HPI, No chest pain, No edema, No irregular heart rate, No lightheadedness, No palpitations Gastrointestinal: No no symptoms reported, No As described under HPI, No abdomen distended, No abdominal pain, No blood streaked bowels, No constipation, No diarrhea, No nausea, No vomiting, No stool coloration changes Genitourinary: No As described under HPI, No burning, No dysuria, No discharge, No frequency, No flank pain, No hematuria, No urgency : Yes : No Skin: No rash, No skin related problems, No ulcerations Psychiatric/Neurological: No anxiety, No depression, No seizure, No focal weakness, No syncope Hematologic: No bleeding abnormalities All Other Systems Reviewed Negative Unless Noted: Yes MEU-Vyvqms-Ximefw Hx Patient Social History Alcohol Use: Denies Use Recreational Drug Use: No Smoking Status: Current Everyday Smoker Type Used: Cigarettes 2nd Hand Smoke Exposure: No Recent Foreign Travel: No Recent Infectious Disease Expo: No Hospitalization with Isolation: Denies Past Medical History PMH As described under Assessment. Family Medical History Family History: Cardiovascular disease Hypertension 19 FATHER Allergies and Home Medications Allergies Coded Allergies: No Known Drug Allergies (Unverified , 12/27/18) Patient Home Medication List Home Medication List Reviewed: Yes Physical Exam-Cardiology Physical Exam Vital Signs/I&O 12/28/18 12/28/18 12/28/18 12/28/18 04:00 08:00 08:30 08:41 Temp 97.0 Pulse 61 68 Resp 20 B/P (MAP) 118/75 (89) Pulse Ox 96 96 O2 Delivery Room Air Nasal Cannula Nasal Cannula O2 Flow Rate 2.00 2.00 12/28/18 12/28/18 12:00 13:03 Temp 98.2 Pulse 75 73 Resp 18 B/P (MAP) 115/54 (74) Pulse Ox 92 94 O2 Delivery Room Air FiO2 28 12/28/18 00:00 Intake Total 730 ml Output Total 1700 ml Balance -970 ml Capillary Refill : Less Than 3 Seconds Constitutional: appears stated age, AAO x 3; No apparent distress; well- developed, well-nourished HEENT: PERRL; No normal ENT inspection, No TMs normal, No pharynx normal, No scleral icterus (R), No scleral icterus (L), No pale conjunctivae (R), No pale conjunctivae (L), No photophobia, No TM abnormal (R), No TM abnormal (L), No pharyngeal erythema, No tonsillar exudate, No other, No discharge, No EOMI; hearing is well preserved; No hard of hearing; oral hygience is good; No ulceration, No xanthelasmas are seen Neck: No non-tender, No full range of motion, No supple, No normal inspection, No carotid bruit, No limited range of motion, No lymphadenopathy (R), No lymphadenopathy (L), No tender lateral, No tender midline, No thyromegaly, No other; carotid pulses are 2 + bilaterally; No with good upstrokes Respiratory: No accessory muscle use, No respiratory distress, No chest tender, No chest expansion is symmetric; chest is bilaterally symmetric; No lungs clear to percussion; lungs clear to auscultation; No crackles, No rhonchi, No rales, No stridor, No wheezing, No pleural rub, No other Cardiovascular: regular rate-rhythm; No irregularly irregular, No extra beats, No parasternal heave is noted, No JVD, No edema, No bradycardia, No tachycardia, No point of maximal impulse, No cardiac thrills are palpable; S1 and S2; No gallop/S3, No gallop/S4, No diastolic murmur, No systolic murmur, No friction rub, No click, No other Gastrointestinal: No tender, No soft, No round, No distended, No pulsatile mass, No organomegaly, No guarding, No rebound, No tenderness, No hernia, No mass, No audible bowel sounds, No abnormal bowel sounds, No abdominal bruits, No spleenomegaly, No other Rectal: deferred Extremities: No normal range of motion, No non-tender, No normal inspection, No pedal edema, No calf tenderness, No normal capillary refill, No pelvis stable, No calf tenderness, No inflammation, No pedal edema, No slow capillary refill, No swelling, No other, No abrasion, No clubbing, No cyanosis, No ecchymosis, No laceration, No no lower extremity edema bilateral, No significant edema, No tenderness, No wound Neurologic/Psychiatric: no motor/sensory deficits, alert, normal mood/affect, oriented x 3, power is 5/5 both on sides Skin: No normal color, No warm/dry, No cyanosis, No cool, No diaphoresis, No damp, No ecchymosis, No jaundice, No mottled, No pallor, No rash, No tattoos/piercings, No ulcerations, No rash on exposed areas, No ulcerations on exposed areas, No other Data Review Labs Laboratory Tests 12/28/18 07:30: Thyroid Stimulating Hormone (TSH) 5.33H ECG Impression ECG Initial ECG Rhythm: Normal Sinus Initial ECG Impression: Nonspecific Changes A/P-Cardiology Assessment/Admission Diagnosis Shortness of breath, elevated BNP, Chest tightness, Active smoking, Possible COPD Plan Shortness of breath, elevated BNP, check echocardiogram. Continue IV Lasix. Chest tightness, nuclear stress test in the morning. Active smoking, okay cessation was recommended. Possible COPD Thank you for your consultation. Please call me if you have any questions. Nicole Ospina MD, FACP, FACC, FSCAI, FHRS, CCDS Interventional Cardiology Cardiac Electrophysiology Vascular Medicine and Endovascular Interventions Clinical Quality Measures DVT/VTE Risk/Contraindication: Risk Factor Score Per Nursin RFS Level Per Nursing on Admit: 4+=Very High Radha OSPINA MD Dec 28, 2018 2:22 pm
[2018-12-28] MEDS: RT-ALBUTEROL SULF 2.5 MG/3 ML PRE-MIX VIAL INH SCH ×3 (15:13→22:05)
[2018-12-28] MEDS ORDERED: REGADENOSON 0.4 MG/5 ML SYR (LEXISCAN) IV ONE (15:15)
[2018-12-28 15:59] VITALS: BP 127/59
[2018-12-28] MEDS ORDERED: RT-ALBUTEROL SULF 2.5 MG/3 ML PRE-MIX VIAL INH PRN (16:00)
--- NOTE | 2018-12-28 16:37 | History & Physical ---
HPI History of Present Illness: 63 yo F that presents with shortness of breath for the last few weeks that has been progressively worse. Denies any chest pain or palpitations. Denies any h/o CAD, CVA. She has been smoking since she was a teenager. She has noticed increase swelling in her legs for the last few weeks. She was placed on lasix for 1 week by PCP and that seemed to improve swelling. Source: patient, family (daughter) Exam Limitations: no limitations Date seen by provider: Dec 28, 2018 Time Seen by Provider: 08:15 Attending Physician Coreen Morris MD PCP Dennise Morin Aprn Consult Date of Admission Dec 27, 2018 at 15:00 Home Medications Home Medications Reviewed patient Home Medication Reconciliation performed by pharmacy medication reconciliations blow mold technician and/or nursing. Patients Allergies have been reviewed. Allergies Coded Allergies: No Known Drug Allergies (Unverified , 12/27/18) CBJ-Uayiwm-Wehywh Hx Patient Social History Alcohol Use: Denies Use Recreational Drug Use: No Smoking Status: Current Everyday Smoker Type Used: Cigarettes 2nd Hand Smoke Exposure: No Recent Foreign Travel: No Contact w/other who traveled: No Recent Infectious Disease Expo: No Past Medical History Tobacco Use Family Medical History Family History: Cardiovascular disease Hypertension 19 FATHER Review of Systems ([facility]) Constitutional: No chills, No fever; weakness EENTM: no symptoms reported; No nose congestion, No throat pain, No throat swelling Respiratory: cough, dyspnea on exertion; No hemoptysis Cardiovascular: No chest pain; edema; No palpitations Gastrointestinal: no symptoms reported; No abdominal pain, No constipation, No diarrhea, No nausea, No vomiting Genitourinary: no symptoms reported; No dysuria, No frequency, No hematuria : No Musculoskeletal: joint pain Skin: no symptoms reported; No lesions, No rash Psychiatric/Neurological: No Symptoms Reported Reviewed Test Results Reviewed Test Results Lab Laboratory Tests Test 12/27/18 13:34 12/28/18 07:30 Range/Units White Blood Count 6.6 4.3-11.0 10^3/uL Red Blood Count 3.55 L 4.35-5.85 10^6/uL Hemoglobin 10.8 L 11.5-16.0 G/DL Hematocrit 36 35-52 % Mean Corpuscular Volume 101 H 80-99 FL Mean Corpuscular Hemoglobin 30 25-34 PG Mean Corpuscular Hemoglobin Concent 30 L 32-36 G/DL Red Cell Distribution Width 17.7 H 10.0-14.5 % Platelet Count 189 130-400 10^3/uL Mean Platelet Volume 10.2 7.4-10.4 FL Neutrophils (%) (Auto) 54 42-75 % Lymphocytes (%) (Auto) 31 12-44 % Monocytes (%) (Auto) 10 0-12 % Eosinophils (%) (Auto) 3 0-10 % Basophils (%) (Auto) 0 0-10 % Neutrophils # (Auto) 3.6 1.8-7.8 X 10^3 Lymphocytes # (Auto) 2.0 1.0-4.0 X 10^3 Monocytes # (Auto) 0.7 0.0-1.0 X 10^3 Eosinophils # (Auto) 0.2 0.0-0.3 10^3/uL Basophils # (Auto) 0.0 0.0-0.1 10^3/uL Sodium Level 145 135-145 MMOL/L Potassium Level 4.0 3.6-5.0 MMOL/L Chloride Level 103 98-107 MMOL/L Carbon Dioxide Level 31 21-32 MMOL/L Anion Gap 11 5-14 MMOL/L Blood Urea Nitrogen 21 H 7-18 MG/DL Creatinine 1.49 H 0.60-1.30 MG/DL Estimat Glomerular Filtration Rate 35 BUN/Creatinine Ratio 14 Glucose Level 183 H 70-105 MG/DL Lactic Acid Level 1.64 0.50-2.00 MMOL/L Calcium Level 8.2 L 8.5-10.1 MG/DL Corrected Calcium 8.7 8.5-10.1 MG/DL Magnesium Level 1.8 1.8-2.4 MG/DL Total Bilirubin 0.2 0.1-1.0 MG/DL Aspartate Amino Transf (AST/SGOT) 21 5-34 U/L Alanine Aminotransferase (ALT/SGPT) 20 0-55 U/L Alkaline Phosphatase 101 40-136 U/L Troponin I < 0.30 <0.30 NG/ML Pro-B-Type Natriuretic Peptide 4586.0 H <75.0 PG/ML Total Protein 6.9 6.4-8.2 GM/DL Albumin 3.4 3.2-4.5 GM/DL Thyroid Stimulating Hormone (TSH) 5.33 H 0.35-4.94 UIU/ML Test 12/28/18 07:30 Range/Units Thyroid Stimulating Hormone (TSH) 5.33 H 0.35-4.94 UIU/ML Physical Exam-([facility]) Physical Exam Vital Signs VS - Last 72 Hours, by Label 12/27/18 12/27/18 12/27/18 12/27/18 13:25 13:51 15:52 16:40 Temp 99.8 98.0 97.8 Pulse 86 70 70 Resp 16 22 20 B/P (MAP) 97/72 (80) 128/55 (79) 140/67 (91) Pulse Ox 95 96 93 O2 Delivery Room Air Nasal Cannula Room Air O2 Flow Rate 2.00 2.00 12/27/18 12/27/18 12/27/18 12/28/18 17:00 20:00 20:45 00:00 Temp 97.5 97.2 Pulse 75 65 Resp 18 18 B/P (MAP) 135/74 (94) 125/74 (91) Pulse Ox 93 99 97 O2 Delivery Room Air Room Air Nasal Cannula Room Air O2 Flow Rate 2.00 2.00 12/28/18 12/28/18 12/28/18 12/28/18 04:00 08:00 08:30 08:41 Temp 97.0 Pulse 61 68 Resp 20 B/P (MAP) 118/75 (89) Pulse Ox 96 96 O2 Delivery Room Air Nasal Cannula Nasal Cannula O2 Flow Rate 2.00 2.00 12/28/18 12/28/18 12/28/18 12/28/18 12:00 13:03 15:13 15:59 Temp 98.2 97.7 Pulse 75 73 70 Resp 18 18 B/P (MAP) 115/54 (74) 127/59 (81) Pulse Ox 92 94 95 94 O2 Delivery Room Air Nasal Cannula Nasal Cannula O2 Flow Rate 2.00 2.00 FiO2 28 Capillary Refill : Less Than 3 Seconds General Appearance: WD/WN, no apparent distress HEENT: PERRL/EOMI, pharynx normal Neck: non-tender, full range of motion, supple Respiratory: chest non-tender, lungs clear, normal breath sounds, no respiratory distress, no accessory muscle use Cardiovascular: normal peripheral pulses, regular rate, rhythm, no murmur Gastrointestinal: normal bowel sounds, non tender, soft, no organomegaly Back: no CVA tenderness, no vertebral tenderness Extremities: no calf tenderness, pedal edema (2+ pitting edema) Neurologic/Psychiatric: air and water tester II-XII nml as tested, no motor/sensory deficits, alert, normal mood/affect, oriented x 3 Skin: normal color, warm/dry Lymphatic: no adenopathy Assessment/Plan Assessment/Plan Admission Status: Inpatient Order (span 2 midnights) Reason for Inpatient Admission: New diagnosis of CHF (1) CHF exacerbation Status: Acute Assessment & Plan: - Echo pending, continue IV lasix Qualifiers: Qualified Codes: I50.9 - Heart failure, unspecified (2) Hypoxia Status: Acute Assessment & Plan: - Titrate oxygen as tolerated (3) Acute kidney failure Status: Acute Assessment & Plan: - Will continue to monitor during diuresis Qualifiers: Qualified Codes: N17.9 - Acute kidney failure, unspecified (4) Normocytic anemia Status: Chronic Assessment & Plan: - Patient will need colonoscopy/EGD as outpatient (5) Elevated TSH Status: Acute Assessment & Plan: - Will check T4 (6) Tobacco abuse Status: Chronic Assessment & Plan: - Discussed the need for cessation (7) DVT prophylaxis Status: Acute Assessment & Plan: - Lovenox Clinical Quality Measures DVT/VTE Risk/Contraindication: Risk Factor Score Per Nursin RFS Level Per Nursing on Admit: 4+=Very High Copy Copies To 1: Miriam WEST APRN GAULT, HOLLY R MD Dec 28, 2018 16:37
[2018-12-28] MEDS ORDERED: ACETAMINOPHEN 500 MG TAB (TYLENOL) PO PRN (18:30)
[2018-12-28 19:20] VITALS: BP 131/60
[2018-12-28] MEDS: SERTRALINE 50 MG (ZOLOFT) TABLET PO SCH (20:46)
[2018-12-29] VITALS (7 sets, daily range): BP systolic 100–135; BP diastolic 54–71
[2018-12-29] MEDS: RT-ALBUTEROL SULF 2.5 MG/3 ML PRE-MIX VIAL INH SCH ×6 (02:51→22:33)
[2018-12-29] MEDS: FUROSEMIDE 40 MG/4 ML INJ (LASIX) IVP SCH ×4 (03:12→21:28)
[2018-12-29 05:40] LABS: BASOPHILS % (AUTO) 0 % (0-10); EOSINOPHILS # (AUTO) 0.2 10^3/uL (0.0-0.3); EOSINOPHILS % (AUTO) 4 % (0-10); HEMATOCRIT 37 % (35-52); HEMOGLOBIN 11.1 G/DL (11.5-16.0); LYMPHOCYTES # (AUTO) 2.1 X 10^3 (1.0-4.0); LYMPHOCYTES % (AUTO) 33 % (12-44); MEAN CORPUSCULAR HEMOGLOBIN 30 PG (25-34); MEAN CORPUSCULAR HGB CONC 30 G/DL (32-36); MEAN CORPUSCULAR VOLUME 100 FL (80-99); MEAN PLATELET VOLUME 10.3 FL (7.4-10.4); MONOCYTES # (AUTO) 0.8 X 10^3 (0.0-1.0); MONOCYTES % (AUTO) 12 % (0-12); NEUTROPHILS # (AUTO) 3.2 X 10^3 (1.8-7.8); NEUTROPHILS % (AUTO) 50 % (42-75); PLATELET COUNT 178 10^3/uL (130-400); RED CELL DISTRIBUTION WIDTH 17.3 % (10.0-14.5); WHITE BLOOD COUNT 6.4 10^3/uL (4.3-11.0)
[2018-12-29 05:55] LABS: ALBUMIN 3.4 GM/DL (3.2-4.5); BILIRUBIN,TOTAL 0.3 MG/DL (0.1-1.0); CALCIUM 8.9 MG/DL (8.5-10.1); CREATININE SERUM 1.73 MG/DL (0.60-1.30); POTASSIUM 3.9 MMOL/L (3.6-5.0)
[2018-12-29 06:18] LABS: FREE T4 (FREE THYROXINE) 0.83 NG/DL (0.70-1.48)
--- NOTE | 2018-12-29 10:30 | Progress Note - Hospitalist ---
Subjective HPI/CC On Admission Date Seen by Provider: Dec 29, 2018 Time Seen by Provider: 09:30 Subjective/Events-last exam Pt having a stress test today by Dr. Ospina. Questionable discharge today or tomorrow. Does not use home O2 at home so will evaluate home O2 need. 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 Cardiology is appreciated in their consultation for new onset congestive heart failure. Dr. Guadalupe will also be consulted for COPD and continued smoking and appears to be need in home O2 at discharge and needs a sleep study. Checked meds and labs. Conferred with RN. Review of Systems General: Fatigue Pulmonary: Dyspnea, Cough Focused Exam Lactate Level 12/27/18 13:34: Lactic Acid Level 1.64 Objective Exam Vital Signs Vital Signs Date Time Temp Pulse Resp B/P (MAP) Pulse Ox O2 Delivery O2 Flow Rate FiO2 12/29/18 19:14 93 Nasal Cannula 2.00 12/29/18 15:57 98.6 77 20 130/61 (84) 12/28/18 13:03 28 Capillary Refill : Less Than 3 Seconds General Appearance: No Apparent Distress, WD/WN, Chronically ill, Obese Respiratory: No Accessory Muscle Use, No Respiratory Distress, Crackles, Decreased Breath Sounds Cardiovascular: Regular Rate, Rhythm, No Edema, No Gallop, No JVD, No Murmur, Normal Peripheral Pulses Neurologic/Psychiatric: Alert, Oriented x3, No Motor/Sensory Deficits, Normal Mood/Affect Results/Procedures Lab Laboratory Tests 12/29/18 04:52 Patient resulted labs reviewed. Assessment/Plan Assessment and Plan Assess & Plan/Chief Complaint Assessment: (1) CHF exacerbation (2) Hypoxia- checking for home O2 (3) Acute kidney failure (4) Normocytic anemia (5) Elevated TSH (6) Tobacco abuse (7) DVT prophylaxis Plan: Cardiology appreciated Smoking cessation Home O2 evaluation Diagnosis/Problems Diagnosis/Problems (1) CHF exacerbation Status: Acute Qualifiers: Heart failure type: unspecified Qualified Codes: I50.9 - Heart failure, unspecified (2) Hypoxia Status: Acute (3) Acute kidney failure Status: Acute Qualifiers: Acute renal failure type: unspecified Qualified Codes: N17.9 - Acute kidney failure, unspecified (4) Tobacco abuse Status: Chronic (5) Normocytic anemia Status: Chronic Clinical Quality Measures DVT/VTE Risk/Contraindication: Risk Factor Score Per Nursin RFS Level Per Nursing on Admit: 4+=Very High TRACEY ROMAN DO Dec 29, 2018 10:30
[2018-12-29] MEDS ORDERED: PIOG30TA71 PO (11:12)
[2018-12-29] MEDS ORDERED: OMG1KC PO (11:12)
[2018-12-29] MEDS ORDERED: FOLI-74 PO (11:12)
[2018-12-29] MEDS ORDERED: LISI-556 PO (11:12)
[2018-12-29] MEDS ORDERED: BUSP5TAB59 PO (11:12)
[2018-12-29] MEDS ORDERED: RT-ALBUINH IH (11:12)
[2018-12-29] MEDS ORDERED: PROP10TA8 PO (11:12)
[2018-12-29] MEDS ORDERED: GABA-486 PO (11:12)
[2018-12-29] MEDS: GABAPENTIN 100 MG (NEURONTIN) CAP PO SCH ×3 (11:58→21:27)
[2018-12-29] MEDS ORDERED: REGADENOSON 0.4 MG/5 ML SYR (LEXISCAN) IV ONE (12:05)
[2018-12-29] MEDS ORDERED: CATHETER FLUSH 10 ML SYR IV PRN (12:15)
--- NOTE | 2018-12-29 12:25 | Pulmonary Consultation ---
History of Present Illness History of Present Illness Date of Consultation 12/29/18 12:24 Time Seen by Provider: 07:53 Date of Admission Allergies and Home Medications Allergies Coded Allergies: No Known Drug Allergies (Unverified , 12/27/18) Home Medications Albuterol Sulfate 1 Puff Puff, 2 PUFF IH Q4H PRN for SHORTNESS OF BREATH, (Reported) 1 PUFF = 90 MCG Buspirone HCl 5 Mg Tablet, 5 MG PO BID, (Reported) Clopidogrel Bisulfate 75 Mg Tablet, 75 MG PO DAILY, (Reported) Folic Acid/Mv,Fe,Other Min 1 Each Tablet, 1 EACH PO DAILY, (Reported) Gabapentin 100 Mg Capsule, 100 MG PO TID, (Reported) Lisinopril 5 Mg Tablet, 5 MG PO DAILY, (Reported) [place] 3 Polyunsat Fatty Acids 1,000 Mg Cap, 1,000 MG PO BID, (Reported) Pioglitazone HCl 30 Mg Tablet, 30 MG PO DAILY, (Reported) Propranolol HCl 10 Mg Tablet, 10 MG PO BID, (Reported) Sertraline HCl 25 Mg Tablet, 25 MG PO DAILY, (Reported) Simvastatin 20 Mg Tablet, 20 MG PO DAILY, (Reported) Tiotropium [place] 1 Inh Aerp, 2 PUFF PO DAILY, (Reported) Past Rdawxfp-Uljkcp-Pabpss Hx Patient Social History Alcohol Use: Denies Use Recreational Drug Use: No Smoking Status: Current Everyday Smoker Type Used: Cigarettes 2nd Hand Smoke Exposure: No Recent Foreign Travel: No Contact w/Someone Who Travel: No Recent Infectious Disease Expo: No Physical Abuse: No Sexual Abuse: No Mistreated: No Fear: No Past Medical History Surgeries: Yes (bilateral carotid, bilateral knee) Respiratory: Yes Chronic Bronchitis, COPD Cardiac: Yes Hypertension Neurological: Yes Neuropathy Genitourinary: No Gastrointestinal: No Musculoskeletal: No Endocrine: No HEENT: No Cancer: No Psychosocial: Yes Anxiety, Depression Blood Disorders: No Family Medical History Cardiovascular disease Hypertension 19 FATHER Sepsis Event Evaluation Height, Weight, BMI Height: 5'4.00" Weight: 232lbs. 15.7oz. [id number]; 40.2 BMI Method:Stated Exam Exam Vital Signs Date Time Temp Pulse Resp B/P (MAP) Pulse Ox O2 Delivery O2 Flow Rate FiO2 12/29/18 12:12 74 16 127/64 (85) 98 Room Air 12/29/18 10:30 90 Nasal Cannula 2.00 12/29/18 08:00 98.5 68 18 100/65 (77) 90 Nasal Cannula 2.00 12/29/18 08:00 95 Nasal Cannula 2.00 12/29/18 06:44 90 Nasal Cannula 2.00 12/29/18 04:00 97.4 74 16 115/71 (86) 93 Nasal Cannula 2.00 12/29/18 02:52 96 Nasal Cannula 1.00 12/29/18 00:41 96.9 70 20 118/56 (76) 91 Nasal Cannula 2.00 12/28/18 22:05 95 Nasal Cannula 2.00 12/28/18 20:00 95 Nasal Cannula 2.00 12/28/18 19:20 97.2 87 18 131/60 (83) 95 Nasal Cannula 2.00 12/28/18 15:59 97.7 70 18 127/59 (81) 94 Nasal Cannula 2.00 12/28/18 15:13 95 Nasal Cannula 2.00 12/28/18 13:03 73 94 28 I & O 12/29/18 07:00 Intake Total 1910 ml Output Total 5400 ml Balance -3490 ml Height & Weight Height: 5'4.00" Weight: 232lbs. 15.7oz. [id number]; 40.2 BMI Method:Stated Capillary Refill: Less Than 3 Seconds Gastrointestinal: normal bowel sounds, non tender, soft, no organomegaly Results Lab Laboratory Tests 12/27/18 13:34 12/29/18 04:52 SELENE JACKSON DO Dec 29, 2018 12:25
[2018-12-29] MEDS: CLOPIDOGREL 75 MG (PLAVIX) TABLET PO SCH (13:58)
[2018-12-29] MEDS: PROPRANOLOL 20 MG (INDERAL) TABLET PO SCH ×2 (13:59→21:27)
--- NOTE | 2018-12-29 17:51 | Cardiology Progress Note ---
Cardiology SOAP Progress Note Subjective: Improved shortness of breath. Objective: I&O/Vital Signs 12/29/18 12/29/18 12/29/18 12/29/18 06:44 08:00 08:00 10:30 Temp 98.5 Pulse 68 Resp 18 B/P (MAP) 100/65 (77) Pulse Ox 90 95 90 90 O2 Delivery Nasal Cannula Nasal Cannula Nasal Cannula Nasal Cannula O2 Flow Rate 2.00 2.00 2.00 2.00 12/29/18 12/29/18 12/29/18 12/29/18 12:12 14:53 15:00 15:57 Temp 98.6 Pulse 74 77 Resp 16 20 B/P (MAP) 127/64 (85) 130/61 (84) Pulse Ox 98 94 90 93 O2 Delivery Room Air Nasal Cannula Nasal Cannula O2 Flow Rate 2.00 2.00 2.00 12/29/18 00:00 Intake Total 1910 ml Output Total 3400 ml Balance -1490 ml Weight (Pounds): 232 Weight (Ounces): 15.7 Weight (Calculated Kilograms): [id number] Constitutional: appears stated age, AAO x 3; No apparent distress; well-developed, well-nourished Respiratory: No accessory muscle use, No respiratory distress, No chest tender, No chest expansion is symmetric; chest is bilaterally symmetric; No lungs clear to percussion; lungs clear to auscultation; No crackles, No rhonchi, No rales, No stridor, No wheezing, No pleural rub, No other Cardiovascular: regular rate-rhythm; No irregularly irregular, No extra beats, No parasternal heave is noted, No JVD, No edema, No bradycardia, No tachycardia, No point of maximal impulse, No cardiac thrills are palpable; S1 and S2; No gallop/S3, No gallop/S4, No diastolic murmur, No systolic murmur, No friction rub, No click, No other Gastrointestional: No tender, No soft, No round, No distended, No pulsatile mass, No organomegaly, No guarding, No rebound, No tenderness, No hernia, No mass, No audible bowel sounds, No abnormal bowel sounds, No abdominal bruits, No spleenomegaly, No other Extremities: No normal range of motion, No non-tender, No normal inspection, No pedal edema, No calf tenderness, No normal capillary refill, No pelvis stable, No calf tenderness, No inflammation, No pedal edema, No slow capillary refill, No swelling, No other, No abrasion, No clubbing, No cyanosis, No ecchymosis, No laceration, No no lower extremity edema bilateral, No significant edema, No tenderness, No wound Neurologic/Psychiatric: no motor/sensory deficits, alert, normal mood/affect, oriented x 3, power is 5/5 both on sides Skin: No normal color, No warm/dry, No cyanosis, No cool, No diaphoresis, No damp, No ecchymosis, No jaundice, No mottled, No pallor, No rash, No tattoos/piercings, No ulcerations, No rash on exposed areas, No ulcerations on exposed areas, No other Results/Procedures: Labs Laboratory Tests 12/29/18 04:52: White Blood Count 6.4, Red Blood Count 3.71L, Hemoglobin 11.1L, Hematocrit 37, Mean Corpuscular Volume 100H, Mean Corpuscular Hemoglobin 30, Mean Corpuscular Hemoglobin Concent 30L, Red Cell Distribution Width 17.3H, Platelet Count 178, Mean Platelet Volume 10.3, Neutrophils (%) (Auto) 50, Lymphocytes (%) (Auto) 33, Monocytes (%) (Auto) 12, Eosinophils (%) (Auto) 4, Basophils (%) (Auto) 0, Neutrophils # (Auto) 3.2, Lymphocytes # (Auto) 2.1, Monocytes # (Auto) 0.8, Eosinophils # (Auto) 0.2, Basophils # (Auto) 0.0, Sodium Level 138, Potassium L evel 3.9, Chloride Level 91L, Carbon Dioxide Level 34H, Anion Gap 13, Blood Urea Nitrogen 28H, Creatinine 1.73H, Estimat Glomerular Filtration Rate 30, BUN/Creatinine Ratio 16, Glucose Level 121H, Calcium Level 8.9, Corrected Calcium 9.4, Total Bilirubin 0.3, Aspartate Amino Transf (AST/SGOT) 33, Alanine Aminotransferase (ALT/SGPT) 24, Alkaline Phosphatase 96, Total Protein 7.0, Albumin 3.4, Free Thyroxine 0.83 A/P: Assessment/Dx: Shortness of breath, elevated BNP, acute diastolic congestive heart failure, Chest tightness, Active smoking, Possible COPD Plan: Shortness of breath, elevated BNP, echocardiogram 12/28/2018 shows normal LV function with diastolic dysfunction. Continue IV Lasix. Chest tightness, nuclear stress test was negative for significant myocardial ischemia. Active smoking, smoking cessation was recommended. Possible COPD Thank you for your consultation. Please call me if you have any questions. Nicole Ospina MD, FACP, FACC, FSCAI, FHRS, CCDS Interventional Cardiology Cardiac Electrophysiology Vascular Medicine and Endovascular Interventions Focused Exam Lactate Level 12/27/18 13:34: Lactic Acid Level 1.64 Radha OSPINA MD Dec 29, 2018 5:51 pm
[2018-12-29] MEDS ORDERED: ACETAMINOPHEN 500 MG TAB (TYLENOL) PO PRN (19:45)
[2018-12-29] MEDS ORDERED: ALPRAZolam 0.25 MG (XANAX) TAB PO PRN (19:45)
[2018-12-29] MEDS ORDERED: HYDROcodone/APAP 5 MG/325 MG (LORTAB) TAB PO PRN (19:45)
[2018-12-29] MEDS ORDERED: ONDANSETRON 4 MG/2 ML (SDV) Z0FRAN IVP PRN (19:45)
[2018-12-29] MEDS ORDERED: MELATONIN 3 MG TABLET PO PRN (19:45)
[2018-12-29] MEDS ORDERED: CALCIUM CARBONATE 500 MG (TUMS) TAB.CHEW PO PRN (19:45)
[2018-12-29] MEDS ORDERED: DOCUSATE SODIUM 100 MG (COLACE) CAP PO PRN (19:45)
[2018-12-29] MEDS ORDERED: diphenhydrAMINE 25 MG TAB (BENADRYL) PO PRN (19:45)
[2018-12-29] MEDS: SERTRALINE 50 MG (ZOLOFT) TABLET PO SCH (21:28)
[2018-12-29] MEDS: SENNA W/DOCUSATE (SENOKOT S) TABLET PO SCH (21:28)
[2018-12-30] MEDS: RT-ALBUTEROL SULF 2.5 MG/3 ML PRE-MIX VIAL INH SCH ×3 (02:14→10:35)
[2018-12-30] MEDS: FUROSEMIDE 40 MG/4 ML INJ (LASIX) IVP SCH ×2 (03:22→08:26)
[2018-12-30 04:30] VITALS: BP 122/58
[2018-12-30 05:49] LABS: BASOPHILS % (AUTO) 0 % (0-10); EOSINOPHILS # (AUTO) 0.3 10^3/uL (0.0-0.3); EOSINOPHILS % (AUTO) 4 % (0-10); HEMATOCRIT 40 % (35-52); LYMPHOCYTES # (AUTO) 2.2 X 10^3 (1.0-4.0); LYMPHOCYTES % (AUTO) 34 % (12-44); MEAN CORPUSCULAR HEMOGLOBIN 30 PG (25-34); MEAN CORPUSCULAR HGB CONC 30 G/DL (32-36); MEAN CORPUSCULAR VOLUME 99 FL (80-99); MEAN PLATELET VOLUME 10.2 FL (7.4-10.4); MONOCYTES % (AUTO) 15 % (0-12); NEUTROPHILS % (AUTO) 47 % (42-75); PLATELET COUNT 211 10^3/uL (130-400); RED CELL DISTRIBUTION WIDTH 17.5 % (10.0-14.5); WHITE BLOOD COUNT 6.4 10^3/uL (4.3-11.0)
[2018-12-30 06:11] LABS: ALBUMIN 3.8 GM/DL (3.2-4.5); BILIRUBIN,TOTAL 0.3 MG/DL (0.1-1.0); CALCIUM 9.4 MG/DL (8.5-10.1); CREATININE SERUM 1.93 MG/DL (0.60-1.30); TOTAL PROTEIN 7.8 GM/DL (6.4-8.2)
[2018-12-30 07:54] VITALS: BP 125/60
--- NOTE | 2018-12-30 07:59 | Pulmonary Consultation ---
History of Present Illness History of Present Illness Date of Consultation 12/30/18 07:54 Time Seen by Provider: 07:54 Date of Admission History of Present Illness 63yo with hx of tobacco use presented secondary to worsening SOB, and worsening LE edema tj over the last 3 wks. Denies CP and palpitations. She does not currently have home oxygen. Stress test was negative. No prior episode like this in the past. I am consulted for pulmonary management. Allergies and Home Medications Allergies Coded Allergies: No Known Drug Allergies (Unverified , 12/27/18) Home Medications Albuterol Sulfate 1 Puff Puff, 2 PUFF IH Q4H PRN for SHORTNESS OF BREATH, (Reported) 1 PUFF = 90 MCG Buspirone HCl 5 Mg Tablet, 5 MG PO BID, (Reported) Clopidogrel Bisulfate 75 Mg Tablet, 75 MG PO DAILY, (Reported) Folic Acid/Mv,Fe,Other Min 1 Each Tablet, 1 EACH PO DAILY, (Reported) Gabapentin 100 Mg Capsule, 100 MG PO TID, (Reported) Lisinopril 5 Mg Tablet, 5 MG PO DAILY, (Reported) [place] 3 Polyunsat Fatty Acids 1,000 Mg Cap, 1,000 MG PO BID, (Reported) Pioglitazone HCl 30 Mg Tablet, 30 MG PO DAILY, (Reported) Propranolol HCl 10 Mg Tablet, 10 MG PO BID, (Reported) Sertraline HCl 25 Mg Tablet, 25 MG PO DAILY, (Reported) Simvastatin 20 Mg Tablet, 20 MG PO DAILY, (Reported) Tiotropium [place] 1 Inh Aerp, 2 PUFF PO DAILY, (Reported) Past Iqyohkp-Ihbnfs-Anbbhk Hx Patient Social History Alcohol Use: Denies Use Recreational Drug Use: No Smoking Status: Current Everyday Smoker Type Used: Cigarettes 2nd Hand Smoke Exposure: No Recent Foreign Travel: No Contact w/Someone Who Travel: No Recent Infectious Disease Expo: No Physical Abuse: No Sexual Abuse: No Mistreated: No Fear: No Past Medical History Surgeries: Yes (bilateral carotid, bilateral knee) Respiratory: Yes Chronic Bronchitis, COPD Cardiac: Yes Hypertension Neurological: Yes Neuropathy Genitourinary: No Gastrointestinal: No Musculoskeletal: No Endocrine: No HEENT: No Cancer: No Psychosocial: Yes Anxiety, Depression Blood Disorders: No Family Medical History Cardiovascular disease Hypertension 19 FATHER Review of Systems Time Seen by Provider: 08:03 Constitutional: Sweats, Weakness, Malaise; No: Fever, Chills, Other Eyes: No: Pain, Vision change, Conjunctivae inflammation, Eyelid inflammation, Other, Redness ENT: Nose congestion; No: Ear pain, Ear discharge, Nose pain, Nose discharge, Mouth pain, Mouth swelling, Throat pain, Throat swelling, Other Respiratory: Cough, Dry, Shortness of breath, SOB with excertion, Wheezing; No: Hemoptysis Cardiovascular: Chest Pain, Paroxysmal Noc. Dyspnea Gastrointestinal: No: Nausea, Vomiting, Abdominal Pain, Diarrhea, Constipation, Melena, Hematochezia, Other Sepsis Event Evaluation Height, Weight, BMI Height: 5'4.00" Weight: 233lbs. 14.4oz. 106.416819zy; 40.2 BMI Method:Stated Exam Exam Vital Signs Date Time Temp Pulse Resp B/P (MAP) Pulse Ox O2 Delivery O2 Flow Rate FiO2 12/30/18 06:13 93 Nasal Cannula 2.00 12/30/18 04:30 97.3 71 18 122/58 (79) 94 Nasal Cannula 2.00 12/30/18 02:15 94 Nasal Cannula 2.00 12/29/18 23:58 96.5 67 22 135/64 (87) 96 Nasal Cannula 2.00 12/29/18 22:34 93 Nasal Cannula 2.00 12/29/18 20:15 98.2 78 22 113/54 (73) 92 Nasal Cannula 2.00 12/29/18 20:00 93 Nasal Cannula 2.00 12/29/18 19:14 93 Nasal Cannula 2.00 12/29/18 15:57 98.6 77 20 130/61 (84) 93 Nasal Cannula 2.00 12/29/18 15:00 90 Nasal Cannula 2.00 12/29/18 14:53 94 2.00 12/29/18 12:12 74 16 127/64 (85) 98 Room Air 12/29/18 10:30 90 Nasal Cannula 2.00 12/29/18 08:00 98.5 68 18 100/65 (77) 90 Nasal Cannula 2.00 12/29/18 08:00 95 Nasal Cannula 2.00 I & O 12/30/18 07:00 Intake Total 2200 ml Output Total 5375 ml Balance -3175 ml Height & Weight Height: 5'4.00" Weight: 233lbs. 14.4oz. 106.761724rg; 40.2 BMI Method:Stated General Appearance: No Apparent Distress, WD/WN, Chronically ill, Obese Respiratory: No Accessory Muscle Use, No Respiratory Distress, Crackles, Decreased Breath Sounds Cardiovascular: Regular Rate, Rhythm, No Edema, No Gallop, No JVD, No Murmur, Normal Peripheral Pulses Capillary Refill: Less Than 3 Seconds Gastrointestinal: normal bowel sounds, non tender, soft, no organomegaly Neurologic/Psychiatric: Alert, Oriented x3, No Motor/Sensory Deficits, Normal Mood/Affect Results Lab Laboratory Tests 12/29/18 04:52 12/30/18 04:55 Assessment/Plan Assessment/Plan COPDAE -Will do out pt testing -may need home oxygen -SVNs -Prednisone taper -Check ABG Diastolic CHF -Lasix CP -Stress test is negative tobacco use -Education SELENE JACKSON DO Dec 30, 2018 07:59
[2018-12-30] MEDS ORDERED: RT-ADVAIR HFA 115/21 MCG PER PUFF IH SCH (08:00)
[2018-12-30] MEDS ORDERED: predniSONE 10 MG TAB PO SCH (08:10)
[2018-12-30] MEDS: SENNA W/DOCUSATE (SENOKOT S) TABLET PO SCH (08:27)
[2018-12-30] MEDS: GABAPENTIN 100 MG (NEURONTIN) CAP PO SCH (08:27)
[2018-12-30] MEDS: CLOPIDOGREL 75 MG (PLAVIX) TABLET PO SCH (08:27)
[2018-12-30] MEDS: PROPRANOLOL 20 MG (INDERAL) TABLET PO SCH (08:27)
[2018-12-30 08:46] LABS: ABG BASE EXCESS 16.2 MMOL/L (-2.5-2.5); ABG OXYGEN SATURATION 91 % (94-100); ABG PCO2 62 MMHG (35-45); ABG PH 7.44 (7.37-7.43); ABG PO2 62 MMHG (79-93); ABG TCO2 43.7 MMOL/L (21.0-31.0)
[2018-12-30 08:48] LABS: ALLENS TEST YES-POS; INSPIRED O2 2L; PATIENT TEMP 97.1; VENTILATOR NO
[2018-12-30] MEDS ORDERED: PRED10TA22 PO (09:39)
[2018-12-30] MEDS ORDERED: FLUT12AE4 IH (09:39)
[2018-12-30] MEDS ORDERED: FURO-125 PO (09:39)
[2018-12-30] MEDS ORDERED: ALBU2.5V4 INH (09:42)
--- NOTE | 2018-12-30 09:43 | Discharge Summary ---
Diagnosis/Chief Complaint Date of Admission Dec 27, 2018 at 15:00 Date of Discharge Discharge Date: Dec 30, 2018 Discharge Diagnosis (1) CHF exacerbation Status: Acute (2) Hypoxia Status: Acute (3) Acute kidney failure Status: Acute (4) Tobacco abuse Status: Chronic (5) Normocytic anemia Status: Chronic (6) Supplemental oxygen dependent Status: Acute Discharge Summary Discharge Physical Exam Allergies: Coded Allergies: No Known Drug Allergies (Unverified , 12/27/18) Vitals & I&Os Vital Signs Date Time Temp Pulse Resp B/P (MAP) Pulse Ox O2 Delivery O2 Flow Rate FiO2 12/30/18 11:00 97.8 72 22 126/60 (82) 94 Nasal Cannula 2.00 12/28/18 13:03 28 General Appearance: No Apparent Distress, WD/WN, Chronically ill, Obese Respiratory: Chest Non Tender, Lungs Clear, Normal Breath Sounds, No Accessory Muscle Use, No Respiratory Distress Cardiovascular: Regular Rate, Rhythm, No Edema, No Gallop, No JVD, No Murmur, Normal Peripheral Pulses Neurologic/Psychiatric: Alert, Oriented x3, No Motor/Sensory Deficits, Normal Mood/Affect Hospital Course Was the Problem List Reviewed?: Yes Hospital course: Pt had an uneventful hospital course after she was admitted for congestive heart failure exacerbation, cardiology was consulted, placed on diuresis and underwent cardiac stress test for risk stratification. Dr. Guadalupe was consulted, placed her on a taper dose of Prednisone, met criteria for two liters of oxygen continuously and nebulizer treatments machine was indicated so that order was placed also. Overall she was able to ambulate, did not require any home health and daughter was in agreement for the discharge plan and overall with have close follow-up with [facility]. All meds were sent into [facility]. Labs (last 24 hrs) Laboratory Tests 12/30/18 04:55: White Blood Count 6.4, Red Blood Count 4.00L, Hemoglobin 12.0, Hematocrit 40, Mean Corpuscular Volume 99, Mean Corpuscular Hemoglobin 30, Mean Corpuscular Hemoglobin Concent 30L, Red Cell Distribution Width 17.5H, Platelet Count 211, Mean Platelet Volume 10.2, Neutrophils (%) (Auto) 47, Lymphocytes (%) (Auto) 34, Monocytes (%) (Auto) 15H, Eosinophils (%) (Auto) 4, Basophils (%) (Auto) 0, Neutrophils # (Auto) 3.0, Lymphocytes # (Auto) 2.2, Monocytes # (Auto) 1.0, Eosinophils # (Auto) 0.3, Basophils # (Auto) 0.0, Sodium Level 139, Potassium Level 4.0, Chloride Level 90L, Carbon Dioxide Level 37H, Anion Gap 12, Blood Urea Nitrogen 30H, Creatinine 1.93H, Estimat Glomerular Filtration Rate 26, BUN/Creatinine Ratio 16, Glucose Level 125H, Calcium Level 9.4, Corrected Calcium 9.6, Total Bilirubin 0.3, Aspartate Amino Transf (AST/SGOT) 35H, Alanine Aminotransferase (ALT/SGPT) 27, Alkaline Phosphatase 113, Total Protein 7.8, Albumin 3.8 12/30/18 08:40: Blood Gas Puncture Site RT RADIAL, Blood Gas Patient Temperature 97.1, Arterial Blood pH 7.44H, Arterial Blood Partial Pressure CO2 62H, Arterial Blood Partial Pressure O2 62L, Arterial Blood HCO3 42*H, Arterial Blood Total CO2 43.7H, Arterial Blood Oxygen Saturation 91L, Arterial Blood Base Excess 16.2H, Jovanny Test YES-POS, Blood Gas Ventilator Setting NO, Blood Gas Inspired Oxygen 2L Patient resulted labs reviewed. Pending Labs Discussion & Recommendations Discharge Planning: <30 minutes discharge planning Discharge Home Medications: Active Scripts Active Albuterol Sulfate 2.5 Mg/3 Ml Vial.neb 2.5 Mg INH RTQ4HR Lasix (Furosemide) 20 Mg Tablet 20 Mg PO DAILY Prednisone 10 Mg Tab.ds.pk 10 Mg PO DAILY Take 6 tabs(60mg)daily,decrease by 1 tab(10MG)daily. Advair Hfa 115-21 Mcg Inhaler (Fluticasone/Salmeterol) 12 Gm Hfa.aer.ad 2 Puff IH BID@08,20 Reported One Daily For Women Tablet (Folic Acid/Mv,Fe,Other Min) 1 Each Tablet 1 Each PO DAILY Fish Oil 1,000 mg Capsule ([place] 3 Polyunsat Fatty Acids) 1,000 Mg Cap 1,000 Mg PO BID Proair Hfa (Albuterol Sulfate) 1 Puff Puff 2 Puff IH Q4H PRN 1 PUFF = 90 MCG Buspirone HCl 5 Mg Tablet 5 Mg PO BID Propranolol HCl 10 Mg Tablet 10 Mg PO BID Gabapentin 100 Mg Capsule 100 Mg PO TID Pioglitazone HCl 30 Mg Tablet 30 Mg PO DAILY Spiriva (Tiotropium [place]) 1 Inh Aerp 2 Puff PO DAILY Zocor (Simvastatin) 20 Mg Tablet 20 Mg PO DAILY Zoloft (Sertraline HCl) 25 Mg Tablet 25 Mg PO DAILY Plavix (Clopidogrel Bisulfate) 75 Mg Tablet 75 Mg PO DAILY Instructions to patient/family Please see electronic discharge instructions given to patient. Clinical Quality Measures DVT/VTE Risk/Contraindication: Risk Factor Score Per Nursin RFS Level Per Nursing on Admit: 4+=Very High Problem Qualifiers (1) CHF exacerbation: Heart failure type: unspecified Qualified Codes: I50.9 - Heart failure, unspecified (2) Acute kidney failure: Acute renal failure type: unspecified Qualified Codes: N17.9 - Acute kidney failure, unspecified TRACEY ROMAN DO Dec 30, 2018 09:42
[2018-12-30 11:00] VITALS: BP 126/60
--- NOTE | 2019-01-03 14:14 | Cardiology Stress Test Report ---
Stress Test Report Type of NM Stress Test: Test Type: LEXISCAN 0.4MG/5ML Date of Procedure/Referring: Date of Procedure: Dec 29, 2018 PCP Coreen Morris MD Admitting Physician Dennise Morin Aprn Indications: CHF exacerbation Baseline Heart Rate: 75 Baseline Blood Pressure: Blood Pressure Systolic: 126 Blood Pressure Diastolic: 60 Baseline EKG: Baseline EKG: sinus rhythm Summary & Conclusion: Summary: The patient was brought to the stress lab after informed consent was taken. Stress test was performed according to the Lexiscan protocol. 0.4 mg of IV Lexiscan was given. Low-grade exercise was performed. Baseline EKG showed sinus rhythm at 75 BPM. Initial blood pressure was 134/64 mmHg. Maximum heart rate was 92 bpm and blood pressure 135/69 mmHg. Patient did not have any chest pain, arrhythmias or ST segment changes during the stress test. 10.52 mCi of Myoview were given for rest imaging and 32.6 mCi of Myoview given for stress imaging. Transient ischemic dilatation score incorrect, EF 80 percent. Normal wall motion. Normal myocardial perfusion imaging during rest and stress. Conclusion: Pharmacological stress test was negative for ischemia. Normal LV function with no wall motion abnormalities. Normal myocardial perfusion imaging during rest and stress. Radha HO MD Jan 03, 2019 14:14
== END 2018-12-30 11:55 | disposition home or self-care (01) | DRG 291 ==
LOC: EDUNIT# 13:06 → ER FS 13:08 → 4TH 15:00
PROVIDERS: ADMIT Family Medicine; ATTEND Family Medicine
DX: I11.0 Hypertensive heart disease with heart failure (principal); I50.31 Acute diastolic (congestive) heart failure; N17.9 Acute kidney failure, unspecified; R09.02 Hypoxemia; J44.1 Chronic obstructive pulmonary disease with (acute) exacerbation; F17.210 Nicotine dependence, cigarettes, uncomplicated; D64.9 Anemia, unspecified; G62.9 Polyneuropathy, unspecified; F41.9 Anxiety disorder, unspecified; F32.9 Major depressive disorder, single episode, unspecified; I25.2 Old myocardial infarction; Z79.02 Long term (current) use of antithrombotics/antiplatelets
CPT/HCPCS: 36415; 36600; 71045; 78452; 80053; 82805; 83036; 83605; 83735; 83880; 84439; 84443; 84484; 85025; 93005; 93017; 93041; 93306; 94640; 94760; 94761; 96374

== ENCOUNTER 2019-03-31 08:33 | Day surgery (SDC) | payer MEDICAID ==
[2019-03-31] VITALS (9 sets, daily range): BP systolic 144–184; BP diastolic 64–87
[~2019-03-31] VITALS: Ht 162.6 cm; Wt 116.0 kg
[~2019-03-31 08:33] MED LIST changes: +ALBU2.5V4 INH; +ALBU8.5H2; +BUSP5TAB59; +BUSP5TAB59 PO; +CLOP75TA69 PO; +FLUT12AE4 IH; +FOLI-74 PO; +FOLI1TAB57; +FURO-125 PO; +GABA-486 PO; +GABA-488; +LISI-556 PO; +LSNP10T; +OMG1KC; +OMG1KC PO; +PIOG15TA2; +PIOG30TA71 PO; +PRED10TA22 PO; +PROP10TA8 PO; +PROP20TA5; +RT-ALBUINH IH; -RT-ALBUTEROL SULF 2.5 MG/3 ML PRE-MIX VIAL INH ONE; +SERT25TA PO; +SIMV20TA PO; +TIOT18CA2 PO
[2019-03-31] MEDS ORDERED: NS IV 1000 ML 1,000 ML IV SCH ×2 (08:44→12:58)
[2019-03-31] MEDS ORDERED: LIDOCAINE 1% INJ 20 ML 20 ML VIAL ONE (08:48)
[2019-03-31] MEDS ORDERED: HEParin (CATH LAB) 2,000 ML IV ONE (08:48)
[2019-03-31 09:20] LABS: HEMOGLOBIN 9.2 G/DL (11.5-16.0); MEAN PLATELET VOLUME 9.6 FL (7.4-10.4); RED CELL DISTRIBUTION WIDTH 14.9 % (10.0-14.5); WHITE BLOOD COUNT 6.1 10^3/uL (4.3-11.0)
[2019-03-31 09:34] LABS: INR 1.1 (0.8-1.4); PROTHROMBIN TIME PATIENT 14.3 SEC (12.2-14.7)
[2019-03-31 09:38] LABS: ALBUMIN 3.6 GM/DL (3.2-4.5); BILIRUBIN,TOTAL 0.3 MG/DL (0.1-1.0); CALCIUM 8.6 MG/DL (8.5-10.1); CREATININE SERUM 1.53 MG/DL (0.60-1.30); POTASSIUM 3.9 MMOL/L (3.6-5.0); TOTAL PROTEIN 7.6 GM/DL (6.4-8.2)
[2019-03-31] MEDS ORDERED: ALB0.5V INH (10:02)
[2019-03-31] MEDS ORDERED: FLUT12AE4 IH (10:04)
[2019-03-31] MEDS ORDERED: FURO-125 PO (10:10)
--- NOTE | 2019-03-31 10:21 | NUR ---
SPOKE WITH THE PT (SHE HAD SOME BOTTLES) WELL MAKING CALLS TO [facility], AND [facility] (THE ARE CALLING ME BACK) TO COMPLETE THE MED REC. MOST OF HER MEDS SHE GETS FROM THE REPOSITORY AND THEY ARE CALLING ME BACK. I AM WAITING TO HEAR BACK ON HER PROPRANOLOL, PIOGLITAZONE, SERTRALINE, AND CLOPIDOGREL AND FLOVENT. WHEN I HEAR FROM THEM I WILL UPDATE THE NOTES AND MED REC IF NEEDED.
[2019-03-31] MEDS ORDERED: MIDAZOLAM 5 MG/5 ML (VERSED) VIAL ONE (11:43)
[2019-03-31] MEDS ORDERED: HEParin 1000 UNIT/ML (10ML VIAL) FOR BOLUS ONE (11:43)
[2019-03-31] MEDS ORDERED: NITRO DRIP 25000 MCG/D5W 0 ML IV ONE (11:43)
[2019-03-31] MEDS ORDERED: fentaNYL INJECTION 100 MCG/2 ML AMP ONE (11:43)
--- NOTE | 2019-03-31 12:56 | Cardiac Procedure Note-CS/ASA ---
Pre-Procedure Note Pre-Op Procedure Note H&P Reviewed The H&P was reviewed, patient examined and no changes noted. Date H&P Reviewed: Mar 31, 2019 Time H&P Reviewed: 12:56 Conscious Sedation Pre-Proced Time 12:56 ASA Score 3 For ASA 3 and 4: Consider anesthesia and medical clearance. Also, for patients with a history of failed moderate sedation consider anesthesia. Airway Lungs Heart ASA score ASA 1: a normal healthy patient ASA 2: a patient with a mild systemic disease (mid diabetes, controlled hypertension, obesity ASA 3: a patient with a severe systemic disease that limits activity (angina, COPD, prior Myocardial infarction) ASA 4: a patient with an incapacitating disease that is a constant threat to life (CHF, renal failure) ASA 5: a moribund patient not expected to survive 24 hrs. (ruptured aneurysm) ASA 6: a declared brain- patient whose organs are being harvested. For emergent operations, add the letter E after the classification Mallampati Classification Grade 3 Sedation Plan Analgesia, Amnesia, Plan communicated to team members, Discussed options with patient/fam, Discussed risks with patient/fam The patient is an appropriate candidate to undergo the planned procedure, sedation, and anesthesia. The patient immediately re-assessed prior to indication. ROBERTH CARR MD FACP FAC CCDS Mar 31, 2019 12:56
[2019-03-31] MEDS ORDERED: PATIENT MAY USE OWN MEDS, ALL PO SCH (13:00)
--- NOTE | 2019-03-31 13:02 | Discharge Inst-Post CATH ---
Discharge Inst-CATH/EP Post Cardiac Cath/EP D/C Inst Follow Up/Plan F/u with Dr Alexandra in 2 weeks ACTIVITY * Go Home directly and rest. * Limit activity of the leg (or wrist if it was used) for 7 days including aerobics, swimming, jogging, bicycling, etc. * Restrict stair-climbing for 7 days if possible, if not, climb up with your n on-cath leg, then bring together on the same step. * Avoid lifting, pushing, pulling or excessive movement of the affected ex tremity for 7 days. * Customary sexual activity may be resumed after 2 days-use caution not to use a position that strains or causes pain to the affected extremity. * No driving for 24 hours. * NO SMOKING. * Avoid straining for bowel movements for 7 days. * Gentle walking on level ground is allowed. * Returning to work will depend on the type of procedure and the results. Your doctor will discuss this with you. CALL YOUR DOCTOR FOR ANY OF THE FOLLOWING: *If bleeding from the puncture site occurs- Apply gentle pressure to site with clean cloth and call your doctor or EMS. * If a knot or lump forms under the skin, increases in size, or causes pain. * If bruising appears to be worsening or moving further down your leg instead of disappearing. * Temperature above 101 F. CARE OF YOUR GROIN INCISION; * Bruising or purple discoloration of the skin near the puncture site is common. * You may shower only, no bathtub bathing for 5 days. Be careful to avoid slipping as your leg may feel stiff. * If a closure device was used on your femoral artery, please see the attached guide regarding care of the device and your leg. * Leave dressing on FOR 24 hours. CARE OF YOUR WRIST INCISION; * Bruising or purple discoloration of the skin near the puncture site is common. * You may shower. * DO NOT submerge wrist. * Leave dressing on FOR 24 hours. ROBERTH ALEXANDRA MD [facility] CCDS Mar 31, 2019 13:02
--- NOTE | 2019-03-31 13:02 | Discharge Inst-Cardiology ---
Discharge Inst-Cardiac Discharge Medications Continued Medications: Albuterol Sulfate (Proair Hfa) 1 Puff Puff 2 PUFF IH Q4H PRN for SHORTNESS OF BREATH, PUFF Albuterol Sulfate (Albuterol Sulfate) 2.5 Mg/0.5 Ml Vial.neb 2.5 MG INH Q6H for SHORTNESS OF BREATH, EACH Buspirone HCl (Buspirone HCl) 5 Mg Tablet 5 MG PO BID, TAB Clopidogrel Bisulfate (Plavix) 75 Mg Tablet 75 MG PO DAILY, TAB LAST FILLED 08-18-2018 #90 Fluticasone/Salmeterol (Advair Hfa 115-21 Mcg Inhaler) 12 Gm Hfa.aer.ad 2 PUFF IH DAILY, GM Furosemide (Lasix) 20 Mg Tablet 20 MG PO DAILY, TAB Gabapentin (Gabapentin) 100 Mg Capsule 100 MG PO TID, CAP [place] 3 Polyunsat Fatty Acids (Fish Oil 1,000 mg Capsule) 1,000 Mg Cap 1000 MG PO BID, CAP Pioglitazone HCl (Pioglitazone HCl) 30 Mg Tablet 30 MG PO DAILY, TAB LAST FILLED 09-18-2018 #90/90DS Propranolol HCl (Propranolol HCl) 10 Mg Tablet 10 MG PO BID, TAB LAST FILLED 12-23-2018 #60 Sertraline HCl (Zoloft) 25 Mg Tablet 25 MG PO DAILY, TAB LAST FILLED 09-18-2018 #30 Tiotropium [place] (Spiriva) 1 Inh Aerp 2 PUFF PO DAILY, EACH Orders-Post D/C & Referrals Pneu Vac Indicated: Yes ROBERTH CARR MD FACP FAC CCDS Mar 31, 2019 13:02
[2019-03-31] MEDS ORDERED: RT-ALBUTEROL SULF 2.5 MG/3 ML PRE-MIX VIAL INH SCH (13:15)
--- NOTE | 2019-03-31 15:01 | CARDIAC CATHETERIZATION ---
DATE OF SERVICE: 03/31/2019 CARDIAC CATHETERIZATION REPORT This is a 63-year-old lady, who has multiple coronary artery disease risk factors and who has been experiencing symptoms of chest discomfort that are suggestive of unstable angina. Given the symptoms and her multiple coronary risk factors that include diabetes mellitus, tobacco use, hyperlipidemia, hypertension, cardiac catheterization was recommended. Informed consent was obtained. She has chronic renal insufficiency. She was made aware of additional risk of contrast nephropathy, given her renal insufficiency. She provided informed consent. Vigorous perioperative hydration was carried out prior to, during, and after procedure. This was to reduce risk of contrast nephropathy. DESCRIPTION OF PROCEDURE: She was brought to the cardiac catheterization laboratory. Right groin was prepared and draped in the usual sterile fashion. Lidocaine 1% was used for local anesthesia. Modified Seldinger technique used to advance a 5-Slovenian sheath in right femoral artery, 5-Slovenian JL4 catheter for left coronary angiography, 5-Slovenian JR4 catheter for right coronary angiography, 5-Slovenian pigtail catheter was used for left heart catheterization. Left ventricular angiography was not performed. This was to conserve contrast to reduce risk of contrast nephropathy. Angiography of the right femoral artery was carried out through the sheath after the pigtail catheter had been removed. Mynx was used to achieve hemostasis. A total of 18 mL of contrast were used. She tolerated the procedure well. HEMODYNAMICS: Left ventricular end-diastolic pressure following coronary angiography was 27 mmHg. There is no significant pressure gradient on pullback across the aortic valve. Ascending aortic pressure was 146/63 with a mean of 94 mmHg. CORONARY ANGIOGRAPHY: Left main coronary artery is free of significant disease. Left circumflex and left anterior descending arteries are free of significant disease. There is mild coronary calcification. Right coronary artery is dominant and free of significant disease. CONCLUSIONS: 1. No angiographically significant coronary artery disease. Minimal coronary calcification is seen. 2. Elevated left ventricular end-diastolic pressure. DISCUSSION AND RECOMMENDATIONS: Based on results of the study, it appears appropriate to continue a conservative approach. Risk factor modification has been advised. Outpatient followup is advised. Job ID: [id number] DocumentID: [id number] Dictated Date: 03/31/2019 12:36:56 Human Resources Support Specialist Date: 03/31/2019 15:00:00 Dictated By: ROBERTH CARR MD, MA, FACP, FACC,
== END 2019-03-31 16:10 | disposition home or self-care (01) ==
LOC: CATH 08:33 → SDC 13:02 → CATH 16:10
PROVIDERS: ATTEND Internal Medicine Cardiovascular Disease
DX: I25.10 Atherosclerotic heart disease of native coronary artery without angina pectoris (principal); I11.0 Hypertensive heart disease with heart failure; I50.9 Heart failure, unspecified; J44.9 Chronic obstructive pulmonary disease, unspecified; E66.01 Morbid (severe) obesity due to excess calories; Z68.41 Body mass index [BMI] 40.0-44.9, adult; Z82.3 Family history of stroke; E11.9 Type 2 diabetes mellitus without complications; F17.210 Nicotine dependence, cigarettes, uncomplicated; Z82.49 Family history of ischemic heart disease and other diseases of the circulatory system; Z80.9 Family history of malignant neoplasm, unspecified; Z83.3 Family history of diabetes mellitus; Z79.02 Long term (current) use of antithrombotics/antiplatelets; Z79.899 Other long term (current) drug therapy
CPT/HCPCS: 36415; 36430; 80053; 80061; 85027; 85610; 85730; 87081; 93458; 94640

== ENCOUNTER → 2019-06-01 | Outpatient (CLI) | payer MEDICAID ==
[~2019-06-01] MED LIST changes: +ALB0.5V INH
--- NOTE | 2019-06-01 16:45 | Diagnostic Imaging Report ---
INDICATION: Left knee pain. COMPARISON: None available. TECHNIQUE: Three radiographs of the left knee dated June 01, 2019. FINDINGS: No acute fracture or dislocation. No destructive osseous process. Minimal medial joint space narrowing. No significant osteophytosis. No joint effusion. No suspicious radiopaque foreign body. IMPRESSION: No acute osseous abnormality with minimal degenerative changes. Dictated by: Dictated on workstation # [id number]
== END ==
LOC: RAD FS 16:01
PROVIDERS: ATTEND Nurse Practitioner
DX: M25.562 Pain in left knee (principal); M25.561 Pain in right knee
CPT/HCPCS: 73562

== ENCOUNTER → 2019-07-01 | Outpatient (CLI) | payer MEDICAID ==
[~2019-07-01] MED LIST changes: +AMLO5TAB9 PO; +ASPI-586 PO; +PANT40TA3 PO; +RT-ALBUTEROL SULF 2.5 MG/3 ML PRE-MIX VIAL INH ONE; +SERT50TA9 PO; +SIMV20TA26 PO
== END ==
LOC: RT 15:48
PROVIDERS: ATTEND Nurse Practitioner Family
DX: J96.10 Chronic respiratory failure, unspecified whether with hypoxia or hypercapnia (principal); J44.9 Chronic obstructive pulmonary disease, unspecified; J30.9 Allergic rhinitis, unspecified; Z72.0 Tobacco use
CPT/HCPCS: 94060; 94726; 94729

== ENCOUNTER → 2019-07-24 | Outpatient (CLI) | payer MEDICAID ==
[~2019-07-24] MED LIST changes: -RT-ALBUTEROL SULF 2.5 MG/3 ML PRE-MIX VIAL INH ONE
[2019-07-24 09:45] LABS: CREATININE SERUM 1.64 MG/DL (0.60-1.30)
--- NOTE | 2019-07-24 12:01 | Diagnostic Imaging Report ---
PROCEDURE: US Venous Lower Ext Daniel. TECHNIQUE: Multiple real-time grayscale images were obtained over the lower extremities in various projections, bilaterally. Additional duplex Doppler and color Doppler images were also obtained. INDICATION: Dyspnea. FINDINGS: Right lower extremity deep venous system shows normal compressibility with normal response to augmentation and Valsalva. Left common femoral vein is patent. The left superficial femoral vein is very small at the level the mid thigh with adjacent collateral. This could be owing to old DVT. No acute thrombus is seen. The popliteal vein is patent. There are no fluid collections identified. IMPRESSION: No evidence of acute right or left lower extremity DVT. There may be old DVT of the left superficial femoral vein, as described. Dictated by: Dictated on workstation # [id number]
--- NOTE | 2019-07-24 12:04 | Diagnostic Imaging Report ---
EXAMINATION: CT Chest without contrast. TECHNIQUE: Multiple contiguous axial images were obtained through the chest without the use of intravenous contrast. All CT scans use one or more of the following dose optimizing techniques: automated exposure control, MA and/or KvP adjustment based on a patient size and exam type, or iterative reconstruction. HISTORY: Shortness of breath. COMPARISON: None available. FINDINGS: There is no edema or pneumonia. No pleural effusion. No pneumothorax. No suspicious nodules. There is mild bibasilar atelectasis. A few mild areas of septal line thickening in keeping with trace pulmonary edema. Heart size is normal. No pericardial effusion. Aorta is normal in caliber. There is no axillary or supraclavicular lymphadenopathy. There is no mediastinal lymphadenopathy. There are mild coronary artery calcifications. Limited views of the upper abdomen are unremarkable. There are no suspicious osseous lesions. IMPRESSION: 1. Trace pulmonary edema. Dictated by: Dictated on workstation # [id number]
== END ==
LOC: RAD 09:05
PROVIDERS: ATTEND Internal Medicine Critical Care Medicine
DX: J96.11 Chronic respiratory failure with hypoxia (principal); J98.4 Other disorders of lung; J44.9 Chronic obstructive pulmonary disease, unspecified; M79.89 Other specified soft tissue disorders; Z72.0 Tobacco use
CPT/HCPCS: 36415; 71250; 82565; 84520; 93970

== ENCOUNTER 2019-12-12 21:49 | Emergency (ER) | payer MEDICAID ==
[~2019-12-12] VITALS: Ht 162.6 cm; Wt 128.6 kg
--- NOTE | 2019-12-12 22:12 | ED General ---
General Stated Complaint: DIZZINESS/FALL Source of Information: Patient Exam Limitations: No Limitations History of Present Illness Date Seen by Provider: Dec 12, 2019 Time Seen by Provider: 21:55 Initial Comments The patient is an obese 64-year-old female who presents via EMS for evaluation of hypertension and hyperglycemia. She states that her blood sugars have been elevated between 3 and 500 for several weeks and that when her children saw her elevated blood sugar tonight they became concerned and called an ambulance. Her blood pressure is also elevated and is 216/167 upon arrival. The patient states that she is having no complaints at this time. She did have an episode earlier today where she felt lightheaded and fell to the ground without any injuries and did not lose consciousness. She is alert and oriented 4, calm, and appears to be in no distress at this time. Deceptively denies chest pain or shortness of breath, headache, fevers or chills, nausea or vomiting, diaphoresis, p alpitations, or syncope. Timing/Duration: 1 Week Severity: Mild Associated Systoms: Denies Symptoms Allergies and Home Medications Allergies Coded Allergies: No Known Drug Allergies (Unverified , 12/27/18) Home Medications Albuterol Sulfate 1 Puff Puff, 2 PUFF IH Q4H PRN for SHORTNESS OF BREATH, (Reported) Albuterol Sulfate 2.5 Mg/0.5 Ml Vial.neb, 2.5 MG INH Q6H PRN for SHORTNESS OF BREATH, (Reported) Amlodipine Besylate 5 Mg Tablet, 5 MG PO DAILY, (Reported) Aspirin 81 Mg Tablet.dr, 81 MG PO DAILY, (Reported) Clopidogrel Bisulfate 75 Mg Tablet, 75 MG PO DAILY, (Reported) Fluticasone/Salmeterol 12 Gm Hfa.aer.ad, 2 PUFF IH DAILY, (Reported) last filled 04/04 Furosemide 20 Mg Tablet, 20 MG PO DAILY, (Reported) Gabapentin 100 Mg Capsule, 100 MG PO TID, (Reported) [place] 3 Polyunsat Fatty Acids 1,000 Mg Cap, 1,000 MG PO BID, (Reported) Pantoprazole Sodium 40 Mg Tablet.dr, 40 MG PO DAILY, (Reported) Pioglitazone HCl 30 Mg Tablet, 30 MG PO DAILY, (Reported) Propranolol HCl 10 Mg Tablet, 10 MG PO BID, (Reported) Sertraline HCl 50 Mg Tablet, 25 MG PO DAILY, (Reported) take 1/2 of 50mg tab Simvastatin 20 Mg Tablet, 20 MG PO HS, (Reported) Tiotropium [place] 1 Inh Aerp, 2 PUFF PO DAILY, (Reported) Patient Home Medication List Home Medication List Reviewed: Yes Review of Systems Review of Systems Constitutional: weakness EENTM: no symptoms reported Respiratory: no symptoms reported Cardiovascular: no symptoms reported Gastrointestinal: no symptoms reported Genitourinary: no symptoms reported Musculoskeletal: no symptoms reported Skin: no symptoms reported Psychiatric/Neurological: No Symptoms Reported Hematologic/Lymphatic: No Symptoms Reported Immunological/Allergic: no symptoms reported All Other Systems Reviewed Negative Unless Noted: Yes Past Fgchnfx-Buvorm-Hlvgqu Hx Past Med/Social Hx: Reviewed Nursing Past Med/Soc Hx Patient Social History Type Used: Cigarettes Former Smoker, Quit: Nov 30, 2018 2nd Hand Smoke Exposure: No Recent Foreign Travel: No Contact w/Someone Who Travel: No Recent Hopitalizations: No Immunizations Up To Date Date of Influenza Vaccine: Mar 17, 2019 Seasonal Allergies Seasonal Allergies: No Past Medical History Surgeries: Yes (bilateral carotid, knee scope) Respiratory: Yes (O2 DEPENDENT AT 4L) Sleep Apnea, COPD Cardiac: Yes Hypertension Neurological: Yes (heat stroke) Neuropathy Genitourinary: Yes Renal Failure Gastrointestinal: Yes Chronic Diarrhea Musculoskeletal: No Endocrine: Yes Diabetes, Non-Insulin dep HEENT: No Cancer: No Did You Recieve Any Treatments: No Psychosocial: Yes Anxiety, Depression Integumentary: No Blood Disorders: No Adverse Reaction/Blood Tranf: No Family Medical History Cardiovascular disease Hypertension 19 FATHER Physical Exam Vital Signs Vital Signs - First Documented 12/12/19 22:26 Temp 36.3 Pulse 105 Resp 18 B/P (MAP) 204/144 (164) Pulse Ox 100 O2 Delivery Nasal Cannula Capillary Refill : Height, Weight, BMI Height: 5'4.00" Weight: 233lbs. 14.4oz. 106.814496ua; 46.25 BMI Method:Stated General Appearance: No Apparent Distress, WD/WN, Obese Eyes: Bilateral Eye Normal Inspection, Bilateral Eye PERRL, Bilateral Eye EOMI HEENT: PERRL/EOMI, Pharynx Normal Neck: Full Range of Motion, Non Tender, Supple Respiratory: Chest Non Tender, Normal Breath Sounds, No Accessory Muscle Use, No Respiratory Distress Cardiovascular: Regular Rate, Rhythm, No Edema, Normal Peripheral Pulses Gastrointestinal: Normal Bowel Sounds, No Pulsatile Mass, Non Tender, Soft Extremity: Normal Capillary Refill, Normal Inspection, Non Tender Neurologic/Psychiatric: Alert, Oriented x3, No Motor/Sensory Deficits, Normal Mood/Affect Skin: Normal Color, Warm/Dry Progress/Results/Core Measures Suspected Sepsis SIRS Temperature: Pulse: Respiratory Rate: Laboratory Tests 12/12/19 22:15: White Blood Count 5.2 Blood Pressure / Mean: Laboratory Tests 12/12/19 22:15: Creatinine 1.54H, Platelet Count 168, Total Bilirubin 0.3 Results/Orders Lab Results Laboratory Tests Test 12/12/19 22:15 Range/Units White Blood Count 5.2 4.3-11.0 10^3/uL Red Blood Count 3.44 L 4.35-5.85 10^6/uL Hemoglobin 9.9 L 11.5-16.0 G/DL Hematocrit 32 L 35-52 % Mean Corpuscular Volume 93 80-99 FL Mean Corpuscular Hemoglobin 29 25-34 PG Mean Corpuscular Hemoglobin Concent 31 L 32-36 G/DL Red Cell Distribution Width 14.5 10.0-14.5 % Platelet Count 168 130-400 10^3/uL Mean Platelet Volume 10.7 H 7.4-10.4 FL Neutrophils (%) (Auto) 62 42-75 % Lymphocytes (%) (Auto) 29 12-44 % Monocytes (%) (Auto) 6 0-12 % Eosinophils (%) (Auto) 3 0-10 % Basophils (%) (Auto) 0 0-10 % Neutrophils # (Auto) 3.2 1.8-7.8 X 10^3 Lymphocytes # (Auto) 1.5 1.0-4.0 X 10^3 Monocytes # (Auto) 0.3 0.0-1.0 X 10^3 Eosinophils # (Auto) 0.1 0.0-0.3 10^3/uL Basophils # (Auto) 0.0 0.0-0.1 10^3/uL Sodium Level 129 L 135-145 MMOL/L Potassium Level 4.5 3.6-5.0 MMOL/L Chloride Level 88 L 98-107 MMOL/L Carbon Dioxide Level 27 21-32 MMOL/L Anion Gap 14 5-14 MMOL/L Blood Urea Nitrogen 37 H 7-18 MG/DL Creatinine 1.54 H 0.60-1.30 MG/DL Estimat Glomerular Filtration Rate 34 BUN/Creatinine Ratio 24 Glucose Level 527 *H 70-105 MG/DL Calcium Level 9.8 8.5-10.1 MG/DL Corrected Calcium 10.0 8.5-10.1 MG/DL Magnesium Level 2.2 1.6-2.4 MG/DL Total Bilirubin 0.3 0.1-1.0 MG/DL Aspartate Amino Transf (AST/SGOT) 45 H 5-34 U/L Alanine Aminotransferase (ALT/SGPT) 49 0-55 U/L Alkaline Phosphatase 220 H 40-136 U/L Total Protein 7.7 6.4-8.2 GM/DL Albumin 3.8 3.2-4.5 GM/DL My Orders Orders - HECTOR JEWELL DO Cbc With Automated Diff (12/12/19 21:57) Comprehensive Metabolic Panel (12/12/19 21:57) Magnesium (12/12/19 21:57) Continuous Ekg Monitoring (12/12/19 21:57) Ekg Tracing (12/12/19 21:57) Joint Supervisor (12/12/19 21:57) Insulin (Regular) Human (Novolin R (Per (12/12/19 22:15) Labetalol Injection (Normodyne Injection (12/12/19 22:15) Ns Iv 1000 Ml (Sodium Chloride 0.9%) (12/12/19 23:00) Medications Given in ED Current Medications Medications Dose Ordered Sig/Eileen Route Start Time Stop Time Status Last Admin Dose Admin Insulin Human Regular 10 unit ONCE ONCE IV 12/12/19 22:15 12/12/19 22:16 DC 12/12/19 22:21 10 UNIT Labetalol HCl 20 mg ONCE ONCE IV 12/12/19 22:15 12/12/19 22:16 DC 12/12/19 22:21 20 MG Vital Signs/I&O 12/12/19 22:26 Temp 36.3 Pulse 105 Resp 18 B/P (MAP) 204/144 (164) Pulse Ox 100 O2 Delivery Nasal Cannula Capillary Refill : Progress Note : Progress Note @6280 - the patient is been updated on lab results including the finding of hyponatremia and hyperglycemia. The hyponatremia when corrected for the hyper glycemia is 139. Her glucose is now 367. She continues to have no complaints. Advised the patient to check her blood sugar and blood pressure frequently and to discuss these results with her doctor. Advised the patient to follow up with her doctor in the next 1-2 days and to return to the emergency Department immediately for new or worsening symptoms. ECG Comment EKG@2231 - NSR, rate of 88, left axis deviation, no acute ischemic findings noted, no STEMI Departure Impression Primary Impression: Uncontrolled hypertension Additional Impression: Uncontrolled diabetes mellitus Disposition: HOME, SELF-CARE Condition: Stable Departure-Patient Inst. Decision time for Depature: 23:13 Referrals: [facility] [place] Primary Care Physician KARO QUIJANO APRN (Family) Primary Care Physician Patient Instructions: High Blood Pressure in Adults, Type 2 Diabetes, Diabetes Diet Add. Discharge Instructions: Continue to keep track of your blood pressure and blood sugar and discussed these with your doctor as it appears that both have been poorly controlled lately. Return to the emergency Department immediately for chest pain, shortness of breath, new or worsening symptoms. Follow-up with your doctor in the next 1-2 days. HECTOR JEWELL DO Dec 12, 2019 22:11
[2019-12-12] MEDS ORDERED: inSUlin (REGULAR) HUMAN 1 UNIT/0.01 ML (CHARGE PER UNIT) IV ONE ×2 (22:15→23:15)
[2019-12-12] MEDS ORDERED: LABETALOL HCL 20 MG/4 ML VIAL IV ONE (22:15)
[2019-12-12 22:27] LABS: BASOPHILS % (AUTO) 0 % (0-10); EOSINOPHILS # (AUTO) 0.1 10^3/uL (0.0-0.3); EOSINOPHILS % (AUTO) 3 % (0-10); HEMATOCRIT 32 % (35-52); HEMOGLOBIN 9.9 G/DL (11.5-16.0); LYMPHOCYTES # (AUTO) 1.5 X 10^3 (1.0-4.0); LYMPHOCYTES % (AUTO) 29 % (12-44); MEAN CORPUSCULAR HEMOGLOBIN 29 PG (25-34); MEAN CORPUSCULAR HGB CONC 31 G/DL (32-36); MEAN CORPUSCULAR VOLUME 93 FL (80-99); MEAN PLATELET VOLUME 10.7 FL (7.4-10.4); MONOCYTES # (AUTO) 0.3 X 10^3 (0.0-1.0); MONOCYTES % (AUTO) 6 % (0-12); NEUTROPHILS # (AUTO) 3.2 X 10^3 (1.8-7.8); NEUTROPHILS % (AUTO) 62 % (42-75); PLATELET COUNT 168 10^3/uL (130-400); RED CELL DISTRIBUTION WIDTH 14.5 % (10.0-14.5); WHITE BLOOD COUNT 5.2 10^3/uL (4.3-11.0)
[2019-12-12 22:47] LABS: CREATININE SERUM 1.54 MG/DL (0.60-1.30); POTASSIUM 4.5 MMOL/L (3.6-5.0)
[2019-12-12 22:48] LABS: ALBUMIN 3.8 GM/DL (3.2-4.5); BILIRUBIN,TOTAL 0.3 MG/DL (0.1-1.0); CALCIUM 9.8 MG/DL (8.5-10.1); MAGNESIUM 2.2 MG/DL (1.6-2.4); TOTAL PROTEIN 7.7 GM/DL (6.4-8.2)
[2019-12-12] MEDS ORDERED: NS IV 1000 ML 1,000 ML IV SCH (23:00)
[2019-12-12 23:31] VITALS: BP 130/83
== END 2019-12-12 23:31 | disposition home or self-care (01) ==
LOC: EDUNIT# 21:49 → ER FS 21:56
DX: I10 Essential (primary) hypertension (principal); E11.65 Type 2 diabetes mellitus with hyperglycemia; J44.9 Chronic obstructive pulmonary disease, unspecified; E11.40 Type 2 diabetes mellitus with diabetic neuropathy, unspecified; F41.9 Anxiety disorder, unspecified; F32.9 Major depressive disorder, single episode, unspecified; Z79.82 Long term (current) use of aspirin; Z79.02 Long term (current) use of antithrombotics/antiplatelets; Z79.51 Long term (current) use of inhaled steroids; Z87.891 Personal history of nicotine dependence; Z82.49 Family history of ischemic heart disease and other diseases of the circulatory system
CPT/HCPCS: 36415; 80053; 82962; 83735; 85025; 93005

== ENCOUNTER → 2020-05-17 | Outpatient (CLI) | payer MEDICAID ==
[~2020-05-17] MED LIST changes: +AMLO-250 PO; -AMLO5TAB9 PO; -PANT40TA3 PO; +PANT40TA52 PO
--- NOTE | 2020-05-17 12:11 | Diagnostic Imaging Report ---
INDICATION: Shortness of breath. TIME OF EXAM: 10:12 AM Comparison is made with prior chest from 12/27/2018. FINDINGS: Heart is enlarged. There are patchy infiltrates left mid and lower lung field. Right lung is clear. There is no effusion or pneumothorax. IMPRESSION: Patchy left-sided pulmonary infiltrate suggestive of pneumonia. Dictated by: Dictated on workstation # [id number]
== END ==
LOC: RAD FS 09:57
PROVIDERS: ATTEND Nurse Practitioner Family
DX: I50.9 Heart failure, unspecified (principal)
CPT/HCPCS: 71046

== ENCOUNTER 2020-08-12 15:48 | Emergency (ER) | payer MEDICARE, MEDICAID ==
[~2020-08-12] VITALS: Ht 162.5 cm; Wt 95.3 kg
[~2020-08-12 15:48] MED LIST changes: -LISI-556 PO; +LISI-729 PO; +SERT-413 PO; -SERT50TA9 PO
[2020-08-12] MEDS ORDERED: HYDROcodone/APAP 5 MG/325 MG (LORTAB) TAB PO ONE (16:00)
--- NOTE | 2020-08-12 16:06 | ED Fall/Injury ---
General Chief Complaint: Trauma-Non Activation Stated Complaint: LEFT SIDE CHEST PAIN Source: patient, EMS Exam Limitations: no limitations History of Present Illness Date Seen by Provider: Aug 12, 2020 Time Seen by Provider: 15:50 Initial Comments The patient presents to the ER by EMS from home with chief complaint she was standing up from the couch when she coughed lost her balance and fell back into the couch causing severe pain in her left anterior ribs. She is not having a productive cough fever chills nausea or sick contacts. She has 9 out of 10 pain. She did take some Tylenol since this happened at 9:00 this morning without significant relief of pain. She does not take pain medicines routinely. She takes 4 L of oxygen by nasal cannula routinely and uses a CPAP to sleep at night. She has COPD, diabetes. She denies striking her head nor loss of consciousness. She is not on blood thinners but she does take Plavix. Allergies and Home Medications Allergies Coded Allergies: No Known Drug Allergies (Unverified , 12/27/18) Home Medications Albuterol Sulfate 1 Puff Puff, 2 PUFF IH Q4H PRN for SHORTNESS OF BREATH, (Reported) Albuterol Sulfate 2.5 Mg/0.5 Ml Vial.neb, 2.5 MG INH Q6H PRN for SHORTNESS OF BREATH, (Reported) Amlodipine Besylate 5 Mg Tablet, 5 MG PO DAILY, (Reported) Aspirin 81 Mg Tablet.dr, 81 MG PO DAILY, (Reported) Clopidogrel Bisulfate 75 Mg Tablet, 75 MG PO DAILY, (Reported) Fluticasone/Salmeterol 12 Gm Hfa.aer.ad, 2 PUFF IH DAILY, (Reported) last filled 04/04 Furosemide 20 Mg Tablet, 20 MG PO DAILY, (Reported) Gabapentin 100 Mg Capsule, 100 MG PO TID, (Reported) [place] 3 Polyunsat Fatty Acids 1,000 Mg Cap, 1,000 MG PO BID, (Reported) Pantoprazole Sodium 40 Mg Tablet.dr, 40 MG PO DAILY, (Reported) Pioglitazone HCl 30 Mg Tablet, 30 MG PO DAILY, (Reported) Propranolol HCl 10 Mg Tablet, 10 MG PO BID, (Reported) Sertraline HCl 50 Mg Tablet, 25 MG PO DAILY, (Reported) take 1/2 of 50mg tab Simvastatin 20 Mg Tablet, 20 MG PO HS, (Reported) Tiotropium [place] 1 Inh Aerp, 2 PUFF PO DAILY, (Reported) Patient Home Medication List Home Medication List Reviewed: Yes Review of Systems Review of Systems Constitutional: No chills, No diaphoresis Eyes: Denies Blindness, Denies Blurred Vision Ears, Nose, Mouth, Throat: denies ear pain, denies ear discharge Respiratory: see HPI; No short of breath Cardiovascular: see HPI, chest pain; No palpitations Gastrointestinal: No abdominal pain, No nausea, No vomiting Genitourinary: No discharge, No dysuria Musculoskeletal: No back pain, No joint pain All Other Systems Reviewed Negative Unless Noted: Yes Past [place]vfook-Yvewxv-Fvoevi Hx Patient Social History Alcohol Use: Denies Use Smoking Status: Former Smoker Type Used: Cigarettes Former Smoker, Quit: Nov 30, 2018 2nd Hand Smoke Exposure: No Recent Hopitalizations: No Immunizations Up To Date Date of Influenza Vaccine: Mar 17, 2019 Seasonal Allergies Seasonal Allergies: No Past Medical History Surgeries: Yes (bilateral carotid, knee scope) Respiratory: Yes (O2 DEPENDENT AT 4L) Sleep Apnea, COPD Cardiac: Yes Hypertension Neurological: Yes (heat stroke) Neuropathy Genitourinary: Yes Renal Failure Gastrointestinal: Yes Chronic Diarrhea Musculoskeletal: No Endocrine: Yes Diabetes, Non-Insulin dep HEENT: No Cancer: No Did You Recieve Any Treatments: No Psychosocial: Yes Anxiety, Depression Integumentary: No Blood Disorders: No Adverse Reaction/Blood Tranf: No Family Medical History Cardiovascular disease Hypertension 19 FATHER Physical Exam Vital Signs Vital Signs - First Documented 08/12/20 15:57 Temp 36.6 Pulse 79 Resp 22 B/P (MAP) 182/71 (108) Pulse Ox 98 O2 Delivery Nasal Cannula O2 Flow Rate 4.00 Capillary Refill : Height, Weight, BMI Height: 5'4.00" Weight: 233lbs. 14.4oz. 106.445478mw; 48.00 BMI Method:Stated General Appearance: WD/WN, no apparent distress HEENT: PERRL/EOMI, pharynx normal Neck: full range of motion, normal inspection Cardiovascular: normal peripheral pulses, regular rate, rhythm Respiratory: lungs clear, normal breath sounds, no respiratory distress, no accessory muscle use, other (Left anterior lower chest wall without ecchymosis or abrasion but tenderness to palpation. Patient is holding it splinted) Gastrointestinal: normal bowel sounds, non tender, soft Neurologic/Psychiatric: alert, normal mood/affect, oriented x 3 Skin: normal color, warm/dry Alejandro Coma Score Best Eye Response: (4) Open Spontaneously Best Verbal Response: (5) Oriented Best Motor Response: (6) Obeys Commands [place] Total: 15 Progress/Results/Core Measures Results/Orders My Orders Orders - SOLEDAD DRISCOLL Ribs/Unilateral With Chest (08/12/20 15:56) Hydrocodone/Apap 5/325 Tablet (Lortab 5 (08/12/20 16:00) Incentive Spirometry (Nursing) Q2H (08/12/20 15:56) Medications Given in ED Current Medications Medications Dose Ordered Sig/Eileen Route Start Time Stop Time Status Last Admin Dose Admin Acetaminophen/ Hydrocodone Bitart 1 ea ONCE ONCE PO 08/12/20 16:00 08/12/20 16:01 DC 08/12/20 16:06 1 EA Vital Signs/I&O 08/12/20 15:57 Temp 36.6 Pulse 79 Resp 22 B/P (MAP) 182/71 (108) Pulse Ox 98 O2 Delivery Nasal Cannula O2 Flow Rate 4.00 Progress Progress Note : Time: 16:02 Progress Note Suspect rib contusion versus fracture. Plan to get plain films 2-3 views of the left ribs and since she fell from standing to a seated position on a couch we have discussed CT imaging of the head and decided she would be okay for observation at this time. We will give her hydrocodone for pain. We will also provide her with an incentive spirometer. Diagnostic Imaging Diagonstic Imaging: Xray Plain Films/CT/US/NM/MRI: chest (Left ribs and chest) Comments NAME: SERGE VENEGAS Daniele [facility] REC#: [id number] PT STATUS: REG ER : 1955 PHYSICIAN: SOLEDAD DRISCOLL MD ADMIT DATE: 08/12/20/ER FS Draft Date of Exam:08/12/20 RIBS/UNILATERAL WITH CHEST EXAM: RIBS/UNILATERAL WITH CHEST INDICATION: Fall. Left-sided chest pain. COMPARISON: Chest radiograph from 05/17/2020. FINDINGS: Normal heart size and central pulmonary vascularity. No focal pulmonary opacity, pleural effusion, or pneumothorax. Evaluation of the ribs is limited by tube current versus body mass. No acute fractures are identified. IMPRESSION: 1. No acute cardiopulmonary findings. 2. No left rib fractures are identified. Dictated on workstation # [id number] Dict: 08/12/20 1641 Trans: 08/12/20 1650 [id number] Interpreted by: JANE BRADLEY MD Electronically signed by: Reviewed: Reviewed by Me Departure Impression Primary Impression: Fall Qualified Codes: W19.XXXA - Unspecified fall, initial encounter Additional Impressions: Rib pain on left side Bruised ribs Qualified Codes: S20.212A - Contusion of left front wall of thorax, initial encounter Disposition: HOME, SELF-CARE Condition: Stable Departure-Patient Inst. Decision time for Depature: 16:52 Referrals: [facility] (PCP) Primary Care Physician KARO QUIJANO APRN (Family) Primary Care Physician Patient Instructions: Bruised Rib (DC) Add. Discharge Instructions: Splint your side with pillows. Use the incentive spirometer 10 times every hour while awake for the next 1 to 2 weeks to prevent pneumonia. Tramadol 1 tablet every 6 hours as necessary for breakthrough pain. Tylenol and Motrin as necessary for pain. Ice applied to your ribs every 2 hours for the first 2 days for pain control. Heating pads can also be helpful for pain. Follow-up with your primary care doctor for reexamination if your symptoms or not improving over the next week. All discharge instructions reviewed with patient and/or family. Voiced understanding. Scripts Tramadol HCl (Tramadol HCl) 50 Mg Tablet 50 MG PO Q6H PRN for PAIN for 3 Days, #14 TAB 0 Refills Prov: SOLEDAD DRISCOLL 08/12/20 SOLEDAD DRISCOLL Aug 12, 2020 16:06
--- NOTE | 2020-08-12 16:50 | Diagnostic Imaging Report ---
EXAM: RIBS/UNILATERAL WITH CHEST INDICATION: Fall. Left-sided chest pain. COMPARISON: Chest radiograph from 05/17/2020. FINDINGS: Normal heart size and central pulmonary vascularity. No focal pulmonary opacity, pleural effusion, or pneumothorax. Evaluation of the ribs is limited by tube current versus body mass. No acute fractures are identified. IMPRESSION: 1. No acute cardiopulmonary findings. 2. No left rib fractures are identified. Dictated by: Dictated on workstation # [id number]
[2020-08-12] MEDS ORDERED: TRM50T PO ×2 (16:55→17:00)
[2020-08-12 17:01] VITALS: BP 174/76
== END 2020-08-12 17:00 | disposition home or self-care (01) ==
LOC: EDUNIT# 15:48 → ER FS 15:49
DX: S20.212A Contusion of left front wall of thorax, initial encounter (principal); I10 Essential (primary) hypertension; F41.9 Anxiety disorder, unspecified; F32.9 Major depressive disorder, single episode, unspecified; J44.9 Chronic obstructive pulmonary disease, unspecified; E11.9 Type 2 diabetes mellitus without complications; Z87.891 Personal history of nicotine dependence; Z82.49 Family history of ischemic heart disease and other diseases of the circulatory system; Z79.82 Long term (current) use of aspirin; W08.XXXA Fall from other furniture, initial encounter
CPT/HCPCS: 71101

== ENCOUNTER → 2020-08-29 | Outpatient (CLI) | payer MEDICARE, MEDICAID ==
[~2020-08-29] MED LIST changes: +TRM50T PO
--- NOTE | 2020-08-29 17:13 | Diagnostic Imaging Report ---
EXAMINATION: CT Chest without contrast. TECHNIQUE: Multiple contiguous axial images were obtained through the chest without the use of intravenous contrast. All CT scans use one or more of the following dose optimizing techniques: automated exposure control, MA and/or KvP adjustment based on a patient size and exam type, or iterative reconstruction. HISTORY: COPD follow-up. COMPARISON: 07/24/2019. FINDINGS: The heart size is enlarged. No pericardial effusion is present. There is calcified aortic and coronary atherosclerotic plaque without aneurysm. There is no mediastinal, hilar, or axillary lymphadenopathy. The lungs demonstrate no pulmonary nodules or masses. There are no focal areas of consolidation. Subsegmental atelectasis is seen in the lung bases. No central endobronchial obstructing lesions are identified. There is no pleural effusion or pneumothorax. The osseous structures demonstrate no acute abnormalities. Limited views of the upper abdominal structures demonstrate no acute abnormalities. IMPRESSION: 1. Subsegmental atelectasis in the lung bases. No suspicious pulmonary nodules or focal consolidations. 2. Cardiomegaly. No overt pulmonary edema. Dictated by: Dictated on workstation # [id number]
== END ==
LOC: RAD FS 13:05
PROVIDERS: ATTEND Nurse Practitioner Family
DX: J44.9 Chronic obstructive pulmonary disease, unspecified (principal); J98.11 Atelectasis; I51.7 Cardiomegaly
CPT/HCPCS: 71250

== ENCOUNTER → 2022-08-17 | Outpatient (CLI) | payer MEDICARE, MEDICAID ==
[~2022-08-17] MED LIST changes: +ALBU8.5H6 IH; +CLOP-31 PO; -CLOP75TA69 PO; -LISI-729 PO; +LISI5TAB20 PO; -RT-ALBUINH IH; +SIMV-333 PO; -SIMV20TA PO
--- NOTE | 2022-08-17 09:36 | Diagnostic Imaging Report ---
CT Lung Screening INDICATION:Screening for lung cancer, 60 pack year history of smoking, quit smoking 5 years prior. TECHNIQUE: Noncontrast, low-dose CT imaging performed according to the lung cancer screening protocol. Auto Exposure Controls were utilize during the CT exam to meet ALARA standards for radiation dose reduction. COMPARISON:08/29/2020 and 07/24/2019 FINDINGS:No significant adenopathy within the chest. Mild scattered vascular calcifications within the thoracic aorta and its branch vessels, including within the coronary arteries. No aneurysmal dilatation of thoracic aorta. The heart is mildly enlarged. No significant pericardial effusion. No pleural effusion. The trachea is patent. New linear reticular opacities with associated volume loss are identified within the lungs bilaterally. No suspicious or actionable discrete pulmonary nodule. The minimally visualized upper abdomen is unremarkable. Scattered osseous degenerative changes without acute osseous abnormality. IMPRESSION:No suspicious or actionable pulmonary nodule. Significantly increasing bilateral atelectasis and/or less likely scarring with associated volume loss. LUNG-RADS CATEGORY:1: Negative MODIFIER:S: Significantly worsening bilateral atelectasis and/or less likely scarring. FOLLOWUP: Continued annual low-dose CT of the chest in 12 months. Dictated by: Dictated on workstation # [id number]
== END ==
LOC: RAD 09:15
PROVIDERS: ATTEND Nurse Practitioner Family
DX: Z12.2 Encounter for screening for malignant neoplasm of respiratory organs (principal); J98.11 Atelectasis
CPT/HCPCS: 71271

== ENCOUNTER 2022-11-10 10:46 | Emergency (ER) | payer MEDICARE, MEDICAID ==
[~2022-11-10] VITALS: Ht 162.6 cm; Wt 99.8 kg
[2022-11-10 11:02] LABS: BASOPHILS % (AUTO) 0 % (0-10); EOSINOPHILS # (AUTO) 0.1 10^3/uL (0.0-0.3); EOSINOPHILS % (AUTO) 2 % (0-10); HEMATOCRIT 37 % (35-52); HEMOGLOBIN 11.2 g/dL (11.5-16.0); LYMPHOCYTES # (AUTO) 0.7 10^3/uL (1.0-4.0); LYMPHOCYTES % (AUTO) 13 % (12-44); MEAN CORPUSCULAR HEMOGLOBIN 31 pg (25-34); MEAN CORPUSCULAR HGB CONC 31 g/dL (32-36); MEAN CORPUSCULAR VOLUME 100 fL (80-99); MEAN PLATELET VOLUME 10.3 fL (9.0-12.2); MONOCYTES # (AUTO) 0.4 10^3/uL (0.0-1.0); MONOCYTES % (AUTO) 8 % (0-12); NEUTROPHILS % (AUTO) 73 % (42-75); PLATELET COUNT 118 10^3/uL (130-400); WHITE BLOOD COUNT 5.5 10^3/uL (4.3-11.0)
--- NOTE | 2022-11-10 11:03 | ED General ---
General Stated Complaint: LOW GLUCOSE Source of Information: Patient, EMS History of Present Illness Date Seen by Provider: November 10, 2022 Time Seen by Provider: 10:46 Initial Comments 67-year-old female presenting with EMS from home due to low blood sugar. EMS had been called for altered mental status and low blood sugar. They reported that her sugar was 14 when they arrived. IV was established and she was given an amp of D50. On arrival to the ED her glucose is now 94 and she is awake and alert and answering questions. She could not tell me initially when she last had anything to eat or take any medication for diabetes. She is on home oxygen at 4 L/min chronically. She denies having nausea, vomiting, chest pain, headache. She complains of chronic leg and back pain. Timing/Duration: 1/2 Hour Severity: Severe Associated Systoms: No Chest Pain, No Cough; Diaphoresis; No Fever/Chills, No Headaches, No Loss of Appetite, No Malaise, No Nausea/Vomiting, No Seizure; Shortness of Air (chronic) Allergies and Home Medications Allergies Coded Allergies: No Known Drug Allergies (Unverified , 12/27/18) Patient Home Medication List Home Medication List Reviewed: Yes Albuterol Sulfate (Ventolin Hfa) 1 Puff Puff, 2 PUFF IH Q4H PRN for SHORTNESS OF BREATH, (Reported) Entered as Reported by: BEATRIZ MCCLAIN on 12/29/18 1112 Albuterol Sulfate (Albuterol Sulfate) 2.5 Mg/0.5 Ml Vial.neb, 2.5 MG INH Q6H PRN for SHORTNESS OF BREATH, (Reported) Entered as Reported by: BEATRIZ MCCLAIN on 03/31/19 1002 Amlodipine Besylate (Amlodipine Besylate) 5 Mg Tablet, 5 MG PO DAILY, (Reported) Entered as Reported by: ADRIANE PADILLA on 07/02/19 1359 Aspirin (Aspir 81) 81 Mg Tablet.dr, 81 MG PO DAILY, (Reported) Entered as Reported by: ADRIANE PADILLA on 07/02/19 1359 Clopidogrel Bisulfate (Plavix) 75 Mg Tablet, 75 MG PO DAILY, (Reported) Entered as Reported by: JEREMIAH RUGGIERO on 12/27/18 1428 Fluticasone/Salmeterol (Advair Hfa 115-21 Mcg Inhaler) 12 Gm Hfa.aer.ad, 2 PUFF IH DAILY, (Reported) Entered as Reported by: BEATRIZ MCCLAIN on 03/31/19 1004 Furosemide (Lasix) 20 Mg Tablet, 20 MG PO DAILY, (Reported) Entered as Reported by: BEATRIZ MCCLAIN on 03/31/19 1010 Gabapentin (Gabapentin) 100 Mg Capsule, 100 MG PO TID, (Reported) Entered as Reported by: BEATRIZ MCCLAIN on 12/29/18 1112 [place] 3 Polyunsat Fatty Acids (Fish Oil 1,000 mg Capsule) 1,000 Mg Cap, 1,000 MG PO BID, (Reported) Entered as Reported by: BEATRIZ MCCLAIN on 12/29/18 1112 Pantoprazole Sodium (Pantoprazole Sodium) 40 Mg Tablet.dr, 40 MG PO DAILY, (Reported) Entered as Reported by: ADRIANE PADILLA on 07/02/19 1359 Pioglitazone HCl (Pioglitazone HCl) 30 Mg Tablet, 30 MG PO DAILY, (Reported) Entered as Reported by: BEATRIZ MCCLAIN on 12/29/18 1112 Propranolol HCl (Propranolol HCl) 10 Mg Tablet, 10 MG PO BID, (Reported) Entered as Reported by: BEATRIZ MCCLAIN on 12/29/18 1112 Sertraline HCl (Sertraline HCl) 50 Mg Tablet, 25 MG PO DAILY, (Reported) Entered as Reported by: ADRIANE PADILLA on 07/02/19 1359 Simvastatin (Simvastatin) 20 Mg Tablet, 20 MG PO HS, (Reported) Entered as Reported by: ADRIANE PADILLA on 07/02/19 1359 Tiotropium [place] (Spiriva) 1 Inh Aerp, 2 PUFF PO DAILY, (Reported) Entered as Reported by: JEREMIAH RUGGIERO on 12/27/18 1428 Tramadol HCl (Tramadol HCl) 50 Mg Tablet, 50 MG PO Q6H PRN for PAIN Prescribed by: SOLEDAD DRISCOLL on 08/12/20 1701 Review of Systems Review of Systems Constitutional: see HPI EENTM: no symptoms reported Respiratory: see HPI Cardiovascular: see HPI Gastrointestinal: see HPI Genitourinary: no symptoms reported Musculoskeletal: see HPI Skin: no symptoms reported Psychiatric/Neurological: Weakness Past [id number] Hx Seasonal Allergies Seasonal Allergies: No Past Medical History Surgery/Hospitalization HX: Diabetes, COPD on home O2 Surgeries: Yes (bilateral carotid, knee scope) Respiratory: Yes (O2 DEPENDENT AT 4L) Sleep Apnea, COPD Cardiac: Yes Hypertension Neurological: Yes (heat stroke) Neuropathy Genitourinary: Yes Renal Failure Gastrointestinal: Yes Chronic Diarrhea Musculoskeletal: No Endocrine: Yes Diabetes, Non-Insulin dep HEENT: No Cancer: No Did You Recieve Any Treatments: No Psychosocial: Yes Anxiety, Depression Integumentary: No Blood Disorders: No Adverse Reaction/Blood Tranf: No Family Medical History Cardiovascular disease Hypertension 19 FATHER Physical Exam Vital Signs Vital Signs - First Documented 11/10/22 10:52 Temp 36.3 Pulse 87 Resp 16 B/P (MAP) 126/61 (82) Pulse Ox 90 O2 Delivery Nasal Cannula O2 Flow Rate 4.00 Capillary Refill : Height, Weight, BMI Height: 5'4.00" Weight: 233lbs. 14.4oz. 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 Norm as Tested Skin: Damp Progress/Results/Core Measures Suspected Sepsis SIRS Temperature: Pulse: Respiratory Rate: Laboratory Tests 11/10/22 11:00: White Blood Count 5.5 Blood Pressure / Mean: Laboratory Tests 11/10/22 11:00: Creatinine 1.42H, Platelet Count 118L, Total Bilirubin 0.4 Results/Orders Lab Results Laboratory Tests Test 11/10/22 11:00 11/10/22 11:10 11/10/22 11:42 Range/Units White Blood Count 5.5 4.3-11.0 10^3/uL Red Blood Count 3.67 L 3.80-5.11 10^6/uL Hemoglobin 11.2 L 11.5-16.0 g/dL Hematocrit 37 35-52 % Mean Corpuscular Volume 100 H 80-99 fL Mean Corpuscular Hemoglobin 31 25-34 pg Mean Corpuscular Hemoglobin Concent 31 L 32-36 g/dL Red Cell Distribution Width 14.8 H 10.0-14.5 % Platelet Count 118 L 130-400 10^3/uL Mean Platelet Volume 10.3 9.0-12.2 fL Immature Granulocyte % (Auto) 4 % Neutrophils (%) (Auto) 73 42-75 % Lymphocytes (%) (Auto) 13 12-44 % Monocytes (%) (Auto) 8 0-12 % Eosinophils (%) (Auto) 2 0-10 % Basophils (%) (Auto) 0 0-10 % Neutrophils # (Auto) 4.0 1.8-7.8 10^3/uL Lymphocytes # (Auto) 0.7 L 1.0-4.0 10^3/uL Monocytes # (Auto) 0.4 0.0-1.0 10^3/uL Eosinophils # (Auto) 0.1 0.0-0.3 10^3/uL Basophils # (Auto) 0.0 0.0-0.1 10^3/uL Immature Granulocyte # (Auto) 0.2 H 0.0-0.1 10^3/uL Sodium Level 140 135-145 MMOL/L Potassium Level 3.5 L 3.6-5.0 MMOL/L Chloride Level 101 98-107 MMOL/L Carbon Dioxide Level 31 21-32 MMOL/L Anion Gap 8 5-14 MMOL/L Blood Urea Nitrogen 21 H 7-18 MG/DL Creatinine 1.42 H 0.60-1.30 MG/DL Estimat Glomerular Filtration Rate 41 BUN/Creatinine Ratio 15 Glucose Level 94 70-105 MG/DL Calcium Level 8.6 8.5-10.1 MG/DL Corrected Calcium 9.2 8.5-10.1 MG/DL Total Bilirubin 0.4 0.1-1.0 MG/DL Aspartate Amino Transf (AST/SGOT) 33 5-34 U/L Alanine Aminotransferase (ALT/SGPT) 24 0-55 U/L Alkaline Phosphatase 168 H 40-136 U/L Total Protein 7.8 6.4-8.2 GM/DL Albumin 3.3 3.2-4.5 GM/DL Urine Color YELLOW Urine Clarity CLEAR Urine pH 7.0 5-9 Urine Specific [place] 1.015 L 1.016-1.022 Urine Protein TRACE H NEGATIVE Urine Glucose (UA) NEGATIVE NEGATIVE Urine Ketones NEGATIVE NEGATIVE Urine Nitrite NEGATIVE NEGATIVE Urine Bilirubin NEGATIVE NEGATIVE Urine Urobilinogen 0.2 < = 1.0 MG/DL Urine Leukocyte Esterase NEGATIVE NEGATIVE Urine RBC (Auto) NEGATIVE NEGATIVE Urine RBC 2-5 H /HPF Urine WBC NONE /HPF Urine Squamous Epithelial Cells 5-10 /HPF Urine Crystals NONE /LPF Urine Bacteria FEW H /HPF Urine Casts NONE /LPF Urine Mucus NEGATIVE /LPF Urine Culture Indicated NO Glucometer 99 70-110 MG/DL My Orders Orders - VANESSA BEACH MD Comprehensive Metabolic Panel (11/10/22 10:56) Ua Culture If Indicated (11/10/22 10:56) Ed Iv/Invasive Line Start (11/10/22 10:56) Cbc With Automated Diff (11/10/22 10:56) Accucheck Stat ONCE (11/10/22 10:56) Vital Signs/I&O 11/10/22 11/10/22 10:52 12:05 Temp 36.3 Pulse 87 82 Resp 16 18 B/P (MAP) 126/61 (82) 128/65 Pulse Ox 90 92 O2 Delivery Nasal Cannula Nasal Cannula O2 Flow Rate 4.00 4.00 Capillary Refill : Progress Note #1: Progress Note Obtain urinalysis and basic lab work to check for her sugars. Once family is available try to get more detail of when she last ate or drank anything in when she last took any medicine for diabetes. Patient is alert and awake and asking to go home. We will try to get her to eat something here to try and help keep her blood sugar up and make sure it is maintaining and not going to drop again as the D50 wears off. Progress Note #2: Progress Note Patient was able to eat a snack here in the emergency department and drink some juice. Her labs did not show acute significant abnormality with her complete blood count or her comprehensive metabolic profile. It appears that her chronic renal insufficiency was improved as she had a BUN of 21 and creatinine of 1.42 today with labs from December 12, 2019 where she had a BUN of 37 and a creatinine of 1.54. She did not have findings for urinary tract infection. Her sugar was rechecked after she had been eating here in the emergency department and was 99. As her glucose was staying up and not dropping again will discharge to home. Counseled to make sure to check her Dexcom continuous glucose monitor prior to taking insulin. When she does eat try to make sure she is eating a balanced diabetic diet with protein and carbohydrates and fruits and vegetables. If her sugars are really low I advised her not to take her insulin with a meal and consider rechecking it after she had eaten to see if she needed a half dose of her insulin. Otherwise it would be better for her sugar to run a little high and then to bottom out like it did today when her sugar was already low prior to taking the insulin and not eating very much. Patient denied any further questions or concerns. Will discharge to home and encouraged to check back with the clinic about continued diabetic education. Departure Impression Primary Impression: Hypoglycemia associated with diabetes Disposition: 01 HOME, SELF-CARE Condition: Improved Departure-Patient Inst. Decision time for Depature: 11:41 Referrals: KARO QUIJANO APRN (PCP) Primary Care Physician [facility] (Family) Primary Care Physician Patient Instructions: Low Blood Sugar, Adult ED, Low blood sugar in people with diabetes Add. Discharge Instructions: Make sure you are eating and drinking well, especially when you take your insulin. Your blood sugar was down to 14 when EMS had checked your sugar. It has come up with getting Intravenous sugar and eating here. Check back with clinic for continued concerns. Continue taking your prescription medicines as prescribed, but make sure you are eating well when you take the insulin so that your sugar does not drop too low like this morning. VANESSA BEACH MD November 10, 2022 11:03
[2022-11-10 11:11] LABS: BILIRUBIN,URINE NEGATIVE (NEGATIVE); CLARITY,URINE CLEAR; COLOR,URINE YELLOW; GLUCOSE, URINE (UA) NEGATIVE (NEGATIVE); KETONES,URINE NEGATIVE (NEGATIVE); LEUKOCYTE ESTERASE ,URINE NEGATIVE (NEGATIVE); NITRITE,URINE NEGATIVE (NEGATIVE); PROTEIN,URINE TRACE (NEGATIVE)
[2022-11-10 11:14] LABS: BACTERIA,URINE FEW /HPF
[2022-11-10 11:18] LABS: BILIRUBIN,TOTAL 0.4 MG/DL (0.1-1.0); CALCIUM 8.6 MG/DL (8.5-10.1); CREATININE SERUM 1.42 MG/DL (0.60-1.30); POTASSIUM 3.5 MMOL/L (3.6-5.0)
[2022-11-10 11:19] LABS: ALBUMIN 3.3 GM/DL (3.2-4.5); TOTAL PROTEIN 7.8 GM/DL (6.4-8.2)
[2022-11-10 12:05] VITALS: BP 128/65
== END 2022-11-10 12:07 | disposition home or self-care (01) ==
LOC: EDUNIT# 10:46 → ER FS 10:49
DX: E11.649 Type 2 diabetes mellitus with hypoglycemia without coma (principal); I12.9 Hypertensive chronic kidney disease with stage 1 through stage 4 chronic kidney disease, or unspecified chronic kidney disease; E11.22 Type 2 diabetes mellitus with diabetic chronic kidney disease; N18.9 Chronic kidney disease, unspecified; J44.9 Chronic obstructive pulmonary disease, unspecified; E66.9 Obesity, unspecified; Z99.81 Dependence on supplemental oxygen; Z68.36 Body mass index [BMI] 36.0-36.9, adult
CPT/HCPCS: 36415; 80053; 81000; 82947; 85025

== ENCOUNTER 2022-12-16 13:43 | Emergency (ER) | payer MEDICARE, MEDICAID ==
[~2022-12-16] VITALS: Ht 162 cm; Wt 100.0 kg
--- NOTE | 2022-12-16 13:51 | ED Abdominal Pain ---
General Chief Complaint: Abdominal/GI Problems Stated Complaint: VOMITING History of Present Illness Date Seen by Provider: Dec 16, 2022 Time Seen by Provider: 13:50 Initial Comments 67-year-old female with PMH of morbid obesity/DM2/ COPD on home oxygen, is here with complaints of abdominal pain which began last night. Patient has associated diarrhea and nausea and vomiting as well. Patient had biscuits, burroughs, and orange juice for breakfast today which she was unable to tolerate and ended up vomiting. Denies fever and chills, known sick contacts, chest pain, shortness of breath, cough. No recent travel. In the ER patient states that she does not have any abdominal pain, but when the pain occurs she has it on the right lower quadrant and left lower quadrant. Allergies and Home Medications Allergies Coded Allergies: No Known Drug Allergies (Unverified , 12/27/18) Patient Home Medication List Home Medication List Reviewed: Yes Albuterol Sulfate (Ventolin Hfa) 1 Puff Puff, 2 PUFF IH Q4H PRN for SHORTNESS OF BREATH, (Reported) Entered as Reported by: BEATRIZ MCCLAIN on 12/29/18 1112 Albuterol Sulfate (Albuterol Sulfate) 2.5 Mg/0.5 Ml Vial.neb, 2.5 MG INH Q6H PRN for SHORTNESS OF BREATH, (Reported) Entered as Reported by: BEATRIZ MCCLAIN on 03/31/19 1002 Amlodipine Besylate (Amlodipine Besylate) 5 Mg Tablet, 5 MG PO DAILY, (Reported) Entered as Reported by: ADRIANE PADILLA on 07/02/19 1359 Aspirin (Aspir 81) 81 Mg Tablet.dr, 81 MG PO DAILY, (Reported) Entered as Reported by: ADRIANE PADILLA on 07/02/19 1359 Clopidogrel Bisulfate (Plavix) 75 Mg Tablet, 75 MG PO DAILY, (Reported) Entered as Reported by: JEREMIAH RUGGIERO on 12/27/18 1428 Fluticasone/Salmeterol (Advair Hfa 115-21 Mcg Inhaler) 12 Gm Hfa.aer.ad, 2 PUFF IH DAILY, (Reported) Entered as Reported by: BEATRIZ MCCLAIN on 03/31/19 1004 Furosemide (Lasix) 20 Mg Tablet, 20 MG PO DAILY, (Reported) Entered as Reported by: BEATRIZ MCCLAIN on 03/31/19 1010 Gabapentin (Gabapentin) 100 Mg Capsule, 100 MG PO TID, (Reported) Entered as Reported by: BEATRIZ MCCLAIN on 12/29/18 1112 [place] 3 Polyunsat Fatty Acids (Fish Oil 1,000 mg Capsule) 1,000 Mg Cap, 1,000 MG PO BID, (Reported) Entered as Reported by: BEATRIZ MCCLAIN on 12/29/18 1112 Pantoprazole Sodium (Pantoprazole Sodium) 40 Mg Tablet.dr, 40 MG PO DAILY, (Reported) Entered as Reported by: ADRIANE PADILLA on 07/02/19 1359 Pioglitazone HCl (Pioglitazone HCl) 30 Mg Tablet, 30 MG PO DAILY, (Reported) Entered as Reported by: BEATRIZ MCCLAIN on 12/29/18 1112 Propranolol HCl (Propranolol HCl) 10 Mg Tablet, 10 MG PO BID, (Reported) Entered as Reported by: BEATRIZ MCCLAIN on 12/29/18 1112 Sertraline HCl (Sertraline HCl) 50 Mg Tablet, 25 MG PO DAILY, (Reported) Entered as Reported by: ADRIANE PADILLA on 07/02/19 1359 Simvastatin (Simvastatin) 20 Mg Tablet, 20 MG PO HS, (Reported) Entered as Reported by: ADRIANE PADILLA on 07/02/19 1359 Tiotropium [place] (Spiriva) 1 Inh Aerp, 2 PUFF PO DAILY, (Reported) Entered as Reported by: JEREMIAH RUGGIERO on 12/27/18 1428 Tramadol HCl (Tramadol HCl) 50 Mg Tablet, 50 MG PO Q6H PRN for PAIN Prescribed by: SOLEDAD DRISCOLL on 08/12/20 1701 Review of Systems Review of Systems Constitutional: no symptoms reported EENTM: No Symptoms Reported Respiratory: No Symptoms Reported Cardiovascular: No Symptoms Reported Gastrointestinal: Abdominal Pain, Diarrhea, Nausea, Vomiting Genitourinary: No Symptoms Reported Musculoskeletal: no symptoms reported Skin: no symptoms reported Psychiatric/Neurological: No Symptoms Reported Endocrine: No Symptoms Reported Hematologic/Lymphatic: No Symptoms Reported Past Setuptp-Jrdznn-Zikgib Hx Seasonal Allergies Seasonal Allergies: No Past Medical History Surgery/Hospitalization HX: Diabetes, COPD on home O2 Surgeries: Yes (bilateral carotid, knee scope) Respiratory: Yes (O2 DEPENDENT AT 4L) Sleep Apnea, COPD Cardiac: Yes Hypertension Neurological: Yes (heat stroke) Neuropathy Genitourinary: Yes Renal Failure Gastrointestinal: Yes Chronic Diarrhea Musculoskeletal: No Endocrine: Yes Diabetes, Non-Insulin dep HEENT: No Cancer: No Did You Recieve Any Treatments: No Psychosocial: Yes Anxiety, Depression Integumentary: No Blood Disorders: No Adverse Reaction/Blood Tranf: No Family Medical History Cardiovascular disease Hypertension 19 FATHER Physical Exam Vital Signs Vital Signs - First Documented 12/16/22 14:04 Temp 36.1 Pulse 92 Resp 18 B/P (MAP) 221/67 (118) Pulse Ox 98 O2 Delivery Room Air Capillary Refill : Height/Weight/BMI Height: 5'4.00" Weight: 233lbs. 14.4oz. [id number]; 37.00 BMI Method:Stated General Appearance: WD/WN, no apparent distress, obese HEENT: PERRL/EOMI Neck: full range of motion Respiratory: chest non-tender, lungs clear Cardiovascular: regular rate, rhythm Gastrointestinal: normal bowel sounds, non tender, soft, no organomegaly, tenderness (No tenderness in the ER on palpation) Extremities: normal range of motion Back: normal inspection, no CVA tenderness Neurologic/Psychiatric: alert, oriented x 3 Skin: normal color Progress/Results/Core Measures Results/Orders Lab Results Laboratory Tests Test 12/16/22 13:50 12/16/22 13:52 Range/Units Urine Color YELLOW Urine Clarity CLEAR Urine pH 8.0 5-9 Urine Specific [place] 1.010 L 1.016-1.022 Urine Protein NEGATIVE NEGATIVE Urine Glucose (UA) NEGATIVE NEGATIVE Urine Ketones NEGATIVE NEGATIVE Urine Nitrite NEGATIVE NEGATIVE Urine Bilirubin NEGATIVE NEGATIVE Urine Urobilinogen 2.0 < = 1.0 MG/DL Urine Leukocyte Esterase NEGATIVE NEGATIVE Urine RBC (Auto) NEGATIVE NEGATIVE Urine RBC NONE /HPF Urine WBC 0-2 /HPF Urine Squamous Epithelial Cells 10-25 H /HPF Urine Crystals NONE /LPF Urine Bacteria TRACE /HPF Urine Casts NONE /LPF Urine Mucus NEGATIVE /LPF Urine Culture Indicated NO Urine Opiates Screen NEGATIVE NEGATIVE Urine Oxycodone Screen NEGATIVE NEGATIVE Urine Methadone Screen NEGATIVE NEGATIVE Urine Propoxyphene Screen NEGATIVE NEGATIVE Urine Barbiturates Screen NEGATIVE NEGATIVE Ur Tricyclic Antidepressants Screen NEGATIVE NEGATIVE Urine Phencyclidine Screen NEGATIVE NEGATIVE Urine Amphetamines Screen NEGATIVE NEGATIVE Urine Methamphetamines Screen NEGATIVE NEGATIVE Urine Benzodiazepines Screen NEGATIVE NEGATIVE Urine Cocaine Screen NEGATIVE NEGATIVE Urine Cannabinoids Screen NEGATIVE NEGATIVE White Blood Count 6.1 4.3-11.0 10^3/uL Red Blood Count 3.61 L 3.80-5.11 10^6/uL Hemoglobin 11.1 L 11.5-16.0 g/dL Hematocrit 36 35-52 % Mean Corpuscular Volume 100 H 80-99 fL Mean Corpuscular Hemoglobin 31 25-34 pg Mean Corpuscular Hemoglobin Concent 31 L 32-36 g/dL Red Cell Distribution Width 14.6 H 10.0-14.5 % Platelet Count 120 L 130-400 10^3/uL Mean Platelet Volume 9.9 9.0-12.2 fL Immature Granulocyte % (Auto) 1 % Neutrophils (%) (Auto) 60 42-75 % Lymphocytes (%) (Auto) 25 12-44 % Monocytes (%) (Auto) 12 0-12 % Eosinophils (%) (Auto) 2 0-10 % Basophils (%) (Auto) 0 0-10 % Neutrophils # (Auto) 3.7 1.8-7.8 10^3/uL Lymphocytes # (Auto) 1.5 1.0-4.0 10^3/uL Monocytes # (Auto) 0.7 0.0-1.0 10^3/uL Eosinophils # (Auto) 0.2 0.0-0.3 10^3/uL Basophils # (Auto) 0.0 0.0-0.1 10^3/uL Immature Granulocyte # (Auto) 0.1 0.0-0.1 10^3/uL Sodium Level 140 135-145 MMOL/L Potassium Level 4.1 3.6-5.0 MMOL/L Chloride Level 102 98-107 MMOL/L Carbon Dioxide Level 26 21-32 MMOL/L Anion Gap 12 5-14 MMOL/L Blood Urea Nitrogen 16 7-18 MG/DL Creatinine 1.36 H 0.60-1.30 MG/DL Estimat Glomerular Filtration Rate 43 BUN/Creatinine Ratio 12 Glucose Level 71 70-105 MG/DL Calcium Level 9.0 8.5-10.1 MG/DL Corrected Calcium 9.6 8.5-10.1 MG/DL Total Bilirubin 0.4 0.1-1.0 MG/DL Aspartate Amino Transf (AST/SGOT) 38 H 5-34 U/L Alanine Aminotransferase (ALT/SGPT) 22 0-55 U/L Alkaline Phosphatase 136 40-136 U/L Troponin I < 0.30 <0.30 NG/ML Total Protein 7.7 6.4-8.2 GM/DL Albumin 3.2 3.2-4.5 GM/DL Lipase 38 8-78 U/L My Orders Orders - SANNA SZYMANSKI MD Cbc With Automated Diff (12/16/22 13:51) Comprehensive Metabolic Panel (12/16/22 13:51) Drug Screen Stat (Urine) (12/16/22 13:51) Lipase (12/16/22 13:51) Ua Culture If Indicated (12/16/22 13:51) Troponin I Fs (12/16/22 13:51) Ed Iv/Invasive Line Start (12/16/22 14:05) Ns Iv 1000 Ml (Sodium Chloride 0.9%) (12/16/22 14:15) Ondansetron Injection (Zofran Injectio (12/16/22 14:15) Ondansetron Injection (Zofran Injectio (12/16/22 14:04) Ns Iv 1000 Ml (Sodium Chloride 0.9%) (12/16/22 14:04) Iohexol Injection (Omnipaque 350 Mg/Ml 1 (12/16/22 14:45) Received Contrast (Hold Metformin- Contr (12/16/22 14:45) Ns (Ivpb) (Sodium Chloride 0.9% Ivpb Bag (12/16/22 14:45) Ct Abdomen/Pelvis Wo (12/16/22 13:52) Medications Given in ED Current Medications Medications Dose Ordered Sig/Eileen Route Start Time Stop Time Status Last Admin Dose Admin Ondansetron HCl 4 mg ONCE ONCE IVP 12/16/22 14:15 12/16/22 14:16 DC 12/16/22 14:08 4 MG Vital Signs/I&O 12/16/22 14:04 Temp 36.1 Pulse 92 Resp 18 B/P (MAP) 221/67 (118) Pulse Ox 98 O2 Delivery Room Air Progress Progress Note : Progress Note 1. ABDOMINAL PAIN: ACUTE DIVERTICULOSIS WITHOUT DIVERTICULITIS & LARGE OVARIAN CYST - CT ABD: Patient refused contrast. Large simple appearing cystic structure in the left adnexa, measuring approximately 8.8 x 5.9 cm, is abnormal in this age group. No free fluid in the pelvis. Recommend pelvic ultrasound for further evaluation. Nodular cirrhotic contour of the liver. Gallbladder wall calcification. No CT finding suspicious for cholecystitis. Advanced colonic diverticulosis without evidence of active diverticulitis. - CBC/ CMP/ Lipase: unremarkable - UA/ UDS: negative - NS IVF bolus and Zofran 4mg iv given in ER with improvement in symptoms - Zofran prescription given to be taken as needed for nausea and vomiting. -Advised to follow-up with [facility] within the next 5 to 7 days, for an ultrasound and ovarian cyst management -Advised to follow-up with PCP within the next 5 to 7 days -Advised liquid diet, advance as tolerated -Advised adequate hydration -The patient was seen in the ED, and treated appropriately to presentation at a specific point in time. Patient is informed that there is a possibility that disease and illness can evolve and change in acuity rapidly or slowly after patient is discharged from the ER. Precautionary advice given to the patient for immediate return to ER if symptoms worsen or do not resolve, and to seek emergency care sooner rather than later. Pt also advised on the importance of PCP follow up and compliance with management and follow up plan with PCP and/or specialist, as this is part of the management plan. Pt verbally expressed understanding. Diagnostic Imaging Diagonstic Imaging: CT Plain Films/CT/US/NM/MRI: abdomen, pelvis Comments [facility] [place]. [place], [place] NAME: SERGE VENEGAS [facility] REC#: [id number] PT STATUS: REG ER : 1955 PHYSICIAN: SANNA SZYMANSKI MD ADMIT DATE: 12/16/22/ER FS Draft Date of Exam:12/16/22 CT ABDOMEN/PELVIS WO PROCEDURE: CT abdomen and pelvis without contrast. TECHNIQUE: Multiple contiguous axial images were obtained through the abdomen and pelvis without the use of intravenous contrast. Auto Exposure Controls were utilized during the CT exam to meet ALARA standards for radiation dose reduction. INDICATION: Abdominal pain. Vomiting. COMPARISON: None. FINDINGS: Mild atelectasis in the lung bases. Nodular cirrhotic contour of the liver. Gallbladder wall calcification. The pancreas, spleen, kidneys, collecting systems and bladder are negative on this noncontrast exam. Large cyst in the left adnexa measures at least 8.8 x 5.9 cm. No soft tissue components are identified. No mesenteric stranding. Advanced colonic diverticulosis without evidence of active diverticulitis. Normal appendix. No free intraperitoneal air or fluid. No lymphadenopathy. No evidence of bowel obstruction. IMPRESSION: 1. Large simple appearing cystic structure in the left adnexa, measuring approximately 8.8 x 5.9 cm, is abnormal in this age group. No free fluid in the pelvis. Recommend pelvic ultrasound for further evaluation. 2. Nodular cirrhotic contour of the liver. 3. Gallbladder wall calcification. No CT finding suspicious for cholecystitis. 4. Advanced colonic diverticulosis without evidence of active diverticulitis. Dictated on workstation # [id number] Dict: 12/16/22 1459 Trans: 12/16/22 1522 [facility] [id number] Interpreted by: JANE BRADLEY MD Electronically signed by: Departure Impression Primary Impression: Diverticulosis of colon without diverticulitis Additional Impression: Ovarian cyst Disposition: HOME, SELF-CARE Condition: Improved Departure-Patient Inst. Referrals: JONNATHAN THOMAS APRN (PCP) Primary Care Physician [facility] (Family) Primary Care Physician Patient Instructions: Diverticulosis (DC), Ovarian cysts Add. Discharge Instructions: - Zofran prescription given to be taken as needed for nausea and vomiting. - Pepcid prescription daily -Advised to follow-up with [facility] within the next 5 to 7 days, for an ultrasound and ovarian cyst management. Call for appointment on Saturday. -Advised to follow-up with PCP within the next 5 to 7 days. Call for appointment on Saturday. -Advised liquid diet, advance as tolerated -Advised adequate hydration All discharge instructions reviewed with patient and/or family. Voiced understanding. Scripts Famotidine (Pepcid) 20 Mg Tablet 20 MG PO DAILY for 7 Days, #7 TAB Prov: SANNA SZYMANSKI MD 12/16/22 Ondansetron (Ondansetron Odt) 4 Mg Tab.rapdis 4 MG SL Q6H PRN for NAUSEA/VOMITING for 3 Days, #15 TAB Prov: SANNA SZYMANSKI MD 12/16/22 SANNA SZYMANSKI MD Dec 16, 2022 13:51
[2022-12-16 14:04] VITALS: BP 221/67
[2022-12-16] MEDS ORDERED: NS IV 1000 ML 1,000 ML ONE (14:04)
[2022-12-16] MEDS ORDERED: ONDANSETRON 4 MG/2 ML (SDV) Z0FRAN ONE (14:04)
[2022-12-16 14:09] LABS: BASOPHILS % (AUTO) 0 % (0-10); EOSINOPHILS # (AUTO) 0.2 10^3/uL (0.0-0.3); EOSINOPHILS % (AUTO) 2 % (0-10); HEMATOCRIT 36 % (35-52); HEMOGLOBIN 11.1 g/dL (11.5-16.0); LYMPHOCYTES # (AUTO) 1.5 10^3/uL (1.0-4.0); LYMPHOCYTES % (AUTO) 25 % (12-44); MEAN CORPUSCULAR HEMOGLOBIN 31 pg (25-34); MEAN CORPUSCULAR HGB CONC 31 g/dL (32-36); MEAN CORPUSCULAR VOLUME 100 fL (80-99); MEAN PLATELET VOLUME 9.9 fL (9.0-12.2); MONOCYTES # (AUTO) 0.7 10^3/uL (0.0-1.0); MONOCYTES % (AUTO) 12 % (0-12); NEUTROPHILS # (AUTO) 3.7 10^3/uL (1.8-7.8); NEUTROPHILS % (AUTO) 60 % (42-75); PLATELET COUNT 120 10^3/uL (130-400); WHITE BLOOD COUNT 6.1 10^3/uL (4.3-11.0)
[2022-12-16 14:10] LABS: BILIRUBIN,URINE NEGATIVE (NEGATIVE); CLARITY,URINE CLEAR; COLOR,URINE YELLOW; GLUCOSE, URINE (UA) NEGATIVE (NEGATIVE); KETONES,URINE NEGATIVE (NEGATIVE); LEUKOCYTE ESTERASE ,URINE NEGATIVE (NEGATIVE); NITRITE,URINE NEGATIVE (NEGATIVE); PROTEIN,URINE NEGATIVE (NEGATIVE)
[2022-12-16 14:13] LABS: BACTERIA,URINE TRACE /HPF; WBC,URINE 0-2 /HPF
[2022-12-16] MEDS ORDERED: ONDANSETRON 4 MG/2 ML (SDV) Z0FRAN IVP ONE (14:15)
[2022-12-16] MEDS ORDERED: NS IV 1000 ML 1,000 ML IV SCH (14:15)
[2022-12-16 14:31] LABS: ALANINE AMINOTRANSFERASE 22 U/L (0-55); ALBUMIN 3.2 GM/DL (3.2-4.5); ALKALINE PHOSPHATASE 136 U/L (40-136); BILIRUBIN,TOTAL 0.4 MG/DL (0.1-1.0); BUN/CREATININE RATIO 12; CARBON DIOXIDE 26 MMOL/L (21-32); CHLORIDE 102 MMOL/L (98-107); CREATININE SERUM 1.36 MG/DL (0.60-1.30); GFR ESTIMATED 43; GLUCOSE 71 MG/DL (70-105); LIPASE 38 U/L (8-78); POTASSIUM 4.1 MMOL/L (3.6-5.0); SODIUM 140 MMOL/L (135-145); TOTAL PROTEIN 7.7 GM/DL (6.4-8.2)
[2022-12-16] MEDS ORDERED: HOLD METFORMIN - RECEIVED CONTRAST 20 ML VIAL IV SCH (14:45)
[2022-12-16] MEDS ORDERED: NS 100 ML (IVPB) BAG IV ONE (14:45)
[2022-12-16] MEDS ORDERED: IOHEXOL 350 MG/ML 100 ML (OMNIPAQUE 350) VIAL IV ONE (14:45)
[2022-12-16 14:54] LABS: AMPHETAMINE SCREEN, URINE NEGATIVE (NEGATIVE); BARBITURATE SCREEN URINE NEGATIVE (NEGATIVE); BENZODIAZEPINES SCREEN URINE NEGATIVE (NEGATIVE); COCAINE SCREEN URINE NEGATIVE (NEGATIVE); METHADONE STAT NEGATIVE (NEGATIVE); OPIATE SCREEN URINE NEGATIVE (NEGATIVE); OXYCODONE STAT NEGATIVE (NEGATIVE); PROPOXYPHENE STAT NEGATIVE (NEGATIVE); TRICYCLIC ANTIDEPRESSANTS SCRE NEGATIVE (NEGATIVE)
[2022-12-16 14:55] LABS: CANNABINOID SCREEN, URINE NEGATIVE (NEGATIVE)
--- NOTE | 2022-12-16 15:23 | Diagnostic Imaging Report ---
PROCEDURE: CT abdomen and pelvis without contrast. TECHNIQUE: Multiple contiguous axial images were obtained through the abdomen and pelvis without the use of intravenous contrast. Auto Exposure Controls were utilized during the CT exam to meet ALARA standards for radiation dose reduction. INDICATION: Abdominal pain. Vomiting. COMPARISON: None. FINDINGS: Mild atelectasis in the lung bases. Nodular cirrhotic contour of the liver. Gallbladder wall calcification. The pancreas, spleen, kidneys, collecting systems and bladder are negative on this noncontrast exam. Large cyst in the left adnexa measures at least 8.8 x 5.9 cm. No soft tissue components are identified. No mesenteric stranding. Advanced colonic diverticulosis without evidence of active diverticulitis. Normal appendix. No free intraperitoneal air or fluid. No lymphadenopathy. No evidence of bowel obstruction. IMPRESSION: 1. Large simple appearing cystic structure in the left adnexa, measuring approximately 8.8 x 5.9 cm, is abnormal in this age group. No free fluid in the pelvis. Recommend pelvic ultrasound for further evaluation. 2. Nodular cirrhotic contour of the liver. 3. Gallbladder wall calcification. No CT finding suspicious for cholecystitis. 4. Advanced colonic diverticulosis without evidence of active diverticulitis. Dictated by: Dictated on workstation # [id number]
[2022-12-16] MEDS ORDERED: ONDA4TAB11 SL (15:54)
[2022-12-16] MEDS ORDERED: FAMO-119 PO (15:54)
== END 2022-12-16 16:00 | disposition home or self-care (01) ==
LOC: EDUNIT# 13:43 → ER FS 13:45
DX: K57.30 Diverticulosis of large intestine without perforation or abscess without bleeding (principal); N83.202 Unspecified ovarian cyst, left side; E66.01 Morbid (severe) obesity due to excess calories; J44.9 Chronic obstructive pulmonary disease, unspecified; Z99.81 Dependence on supplemental oxygen; Z68.38 Body mass index [BMI] 38.0-38.9, adult
CPT/HCPCS: 36415; 74176; 80053; 80306; 81000; 83690; 84484; 85025

== ENCOUNTER 2023-02-17 12:35 | Emergency (ER) | payer MEDICARE, MEDICAID ==
[~2023-02-17] VITALS: Ht 162.6 cm; Wt 81.6 kg
[~2023-02-17 12:35] MED LIST changes: +FAMO-119 PO; +ONDA4TAB11 SL
[2023-02-17] MEDS ORDERED: DEXTROSE 50% 50 ML (IMS) SYR ONE (12:46)
[2023-02-17] MEDS ORDERED: NS IV 1000 ML 1,000 ML IV STA (12:48)
[2023-02-17] MEDS ORDERED: DEXTROSE 50% 50 ML (IMS) SYR IV STA (12:48)
[2023-02-17] MEDS ORDERED: ONDANSETRON INJECTION 4 MG/2 ML (SDV) IVP STA (12:48)
[2023-02-17 13:05] LABS: BASOPHILS % (AUTO) 0 % (0-10); EOSINOPHILS # (AUTO) 0.1 10^3/uL (0.0-0.3); EOSINOPHILS % (AUTO) 2 % (0-10); HEMATOCRIT 40 % (35-52); HEMOGLOBIN 12.3 g/dL (11.5-16.0); LYMPHOCYTES # (AUTO) 1.2 10^3/uL (1.0-4.0); LYMPHOCYTES % (AUTO) 26 % (12-44); MEAN CORPUSCULAR HEMOGLOBIN 30 pg (25-34); MEAN CORPUSCULAR HGB CONC 31 g/dL (32-36); MEAN CORPUSCULAR VOLUME 99 fL (80-99); MEAN PLATELET VOLUME 11.6 fL (9.0-12.2); MONOCYTES # (AUTO) 0.5 10^3/uL (0.0-1.0); MONOCYTES % (AUTO) 11 % (0-12); NEUTROPHILS # (AUTO) 2.8 10^3/uL (1.8-7.8); NEUTROPHILS % (AUTO) 58 % (42-75); PLATELET COUNT 74 10^3/uL (130-400); WHITE BLOOD COUNT 4.8 10^3/uL (4.3-11.0)
--- NOTE | 2023-02-17 13:13 | ED General ---
General Chief Complaint: Abdominal/GI Problems Stated Complaint: VOMITING;DIARRHEA Nursing Triage Note: Patient reports chills/fever, nausea/vomiting, and diarrhea since Saturday. She states she is diabetic and her blood sugar was 58 at home. Patient's family reports patient's eyes rolled back in her head and she was briefly unresponsive today. Source of Information: Patient, Family History of Present Illness Date Seen by Provider: Feb 17, 2023 Time Seen by Provider: 12:37 Initial Comments 67-year-old female presenting with complaints of having nausea, vomiting, diarrhea since Saturday. She states that she is diabetic and has continued to take her regular insulin dosing but she has not been able to eat or drink. She took her regular doses of insulin this morning and her blood sugars have been down into the 50s. Family reports that at 1 point she was unresponsive to them after having an episode of shaking. She denies having pain or burning with urination. She denies any known ill contacts. She had similar issues back in December of this year and improved with hydration and nausea medication. Timing/Duration: 2-3 Days Severity: Moderate Modifying Factors: worse with Eating Associated Systoms: No Chest Pain, No Cough, No Diaphoresis; Fever/Chills (Subjective); No Headaches; Malaise, Nausea/Vomiting; No Rash, No Seizure, No Shortness of Air, No Syncope; Weakness Allergies and Home Medications Allergies Coded Allergies: No Known Drug Allergies (Unverified , 12/27/18) Patient Home Medication List Home Medication List Reviewed: Yes Albuterol Sulfate (Ventolin Hfa) 1 Puff Puff, 2 PUFF IH Q4H PRN for SHORTNESS OF BREATH, (Reported) Entered as Reported by: BEATRIZ MCCLAIN on 12/29/18 1112 Albuterol Sulfate (Albuterol Sulfate) 2.5 Mg/0.5 Ml Vial.neb, 2.5 MG INH Q6H PRN for SHORTNESS OF BREATH, (Reported) Entered as Reported by: BEATRIZ MCCLAIN on 03/31/19 1002 Amlodipine Besylate (Amlodipine Besylate) 5 Mg Tablet, 5 MG PO DAILY, (Reported) Entered as Reported by: ADRIANE PADILLA on 07/02/19 1359 Aspirin (Aspir 81) 81 Mg Tablet.dr, 81 MG PO DAILY, (Reported) Entered as Reported by: ADRIANE PADILLA on 07/02/19 1359 Clopidogrel Bisulfate (Plavix) 75 Mg Tablet, 75 MG PO DAILY, (Reported) Entered as Reported by: JEREMIAH RUGGIERO on 12/27/18 1428 Famotidine (Pepcid) 20 Mg Tablet, 20 MG PO DAILY Prescribed by: SANNA SZYMANSKI MD on 12/16/22 1554 Fluticasone/Salmeterol (Advair Hfa 115-21 Mcg Inhaler) 12 Gm Hfa.aer.ad, 2 PUFF IH DAILY, (Reported) Entered as Reported by: BEATRIZ MCCLAIN on 03/31/19 1004 Furosemide (Lasix) 20 Mg Tablet, 20 MG PO DAILY, (Reported) Entered as Reported by: BEATRIZ MCCLAIN on 03/31/19 1010 Gabapentin (Gabapentin) 100 Mg Capsule, 100 MG PO TID, (Reported) Entered as Reported by: BEATRIZ MCCLAIN on 12/29/18 1112 [place] 3 Polyunsat Fatty Acids (Fish Oil 1,000 mg Capsule) 1,000 Mg Cap, 1,000 MG PO BID, (Reported) Entered as Reported by: BEATRIZ MCCLAIN on 12/29/18 1112 Ondansetron (Ondansetron Odt) 4 Mg Tab.rapdis, 4 MG SL Q6H PRN for NAUSEA/VOMIT ING Prescribed by: SANNA SZYMANSKI MD on 12/16/22 1554 Ondansetron (Ondansetron Odt) 4 Mg Tab.rapdis, 4 MG PO Q6H PRN for NAUSEA/VOMITING Prescribed by: VANESSA BEACH on 02/17/23 1530 Pantoprazole Sodium (Pantoprazole Sodium) 40 Mg Tablet.dr, 40 MG PO DAILY, (Reported) Entered as Reported by: ADRIANE PADILLA on 07/02/19 1359 Pioglitazone HCl (Pioglitazone HCl) 30 Mg Tablet, 30 MG PO DAILY, (Reported) Entered as Reported by: BEATRIZ MCCLAIN on 12/29/18 1112 Propranolol HCl (Propranolol HCl) 10 Mg Tablet, 10 MG PO BID, (Reported) Entered as Reported by: BEATRIZ MCCLAIN on 12/29/18 1112 Sertraline HCl (Sertraline HCl) 50 Mg Tablet, 25 MG PO DAILY, (Reported) Entered as Reported by: ADRIANE PADILLA on 07/02/19 1359 Simvastatin (Simvastatin) 20 Mg Tablet, 20 MG PO HS, (Reported) Entered as Reported by: ADRIANE PADILLA on 07/02/19 1359 Tiotropium [place] (Spiriva) 1 Inh Aerp, 2 PUFF PO DAILY, (Reported) Entered as Reported by: JEREMIAH RUGGIERO on 12/27/18 1428 Tramadol HCl (Tramadol HCl) 50 Mg Tablet, 50 MG PO Q6H PRN for PAIN Prescribed by: SOLEDAD DRISCOLL on 08/12/20 1701 Review of Systems Review of Systems Constitutional: see HPI EENTM: no symptoms reported Respiratory: No cough Cardiovascular: No chest pain Gastrointestinal: diarrhea, nausea, vomiting Genitourinary: No dysuria Musculoskeletal: no symptoms reported Skin: no symptoms reported Psychiatric/Neurological: See HPI Past [id number] Hx Seasonal Allergies Seasonal Allergies: No Past Medical History Surgery/Hospitalization HX: Diabetes, COPD on home O2 Surgeries: Yes (bilateral carotid, knee scope) Respiratory: Yes (O2 DEPENDENT AT 4L) Sleep Apnea, COPD Cardiac: Yes Hypertension Neurological: Yes (heat stroke) Neuropathy Genitourinary: Yes Renal Failure Gastrointestinal: Yes Chronic Diarrhea Musculoskeletal: No Endocrine: Yes Diabetes, Non-Insulin dep HEENT: No Cancer: No Did You Recieve Any Treatments: No Psychosocial: Yes Anxiety, Depression Integumentary: No Blood Disorders: No Adverse Reaction/Blood Tranf: No Family Medical History Cardiovascular disease Hypertension 19 FATHER Physical Exam Vital Signs Vital Signs - First Documented 02/17/23 12:42 Temp 36.7 Pulse 88 Resp 26 B/P (MAP) 158/70 (99) Pulse Ox 97 O2 Delivery Nasal Cannula O2 Flow Rate 4.00 Capillary Refill : Less Than 3 Seconds Height, Weight, BMI Height: 5'4.00" Weight: 233lbs. 14.4oz. 106.428448wq; 30.00 BMI Method:Stated General Appearance: No Apparent Distress, Obese HEENT: PERRL/EOMI, Pharynx Normal Respiratory: Chest Non Tender, Lungs Clear, Normal Breath Sounds, No Accessory Muscle Use, No Respiratory Distress Cardiovascular: Regular Rate, Rhythm, Normal Peripheral Pulses Gastrointestinal: Normal Bowel Sounds, No Pulsatile Mass, Non Tender, Soft Rectal: Deferred Extremity: Normal Capillary Refill, Pedal Edema (1+ pitting edema to bilateral lower extremities) Neurologic/Psychiatric: Alert, Oriented x3, medical records receptionist II-XII Norm as Tested Skin: Normal Color, Warm/Dry Progress/Results/Core Measures Suspected Sepsis SIRS Temperature: Pulse: 88 Respiratory Rate: 26 Laboratory Tests 02/17/23 13:03: White Blood Count 4.8 Blood Pressure 158 /70 Mean: 99 Laboratory Tests 02/17/23 13:03: Creatinine 1.34H, Platelet Count 74L, Total Bilirubin 0.7 Results/Orders Lab Results Laboratory Tests Test 02/17/23 12:45 02/17/23 12:46 02/17/23 12:55 02/17/23 13:03 Range/Units SARS-CoV-2 RNA (RT-PCR) Detected H Not Detecte Glucometer 38 *L 70-110 MG/DL Urine Color YELLOW Urine Clarity CLEAR Urine pH 5.5 5-9 Urine Specific [place] >=1.030 1.016-1.022 Urine Protein NEGATIVE NEGATIVE Urine Glucose (UA) NEGATIVE NEGATIVE Urine Ketones NEGATIVE NEGATIVE Urine Nitrite NEGATIVE NEGATIVE Urine Bilirubin NEGATIVE NEGATIVE Urine Urobilinogen 0.2 < = 1.0 MG/DL Urine Leukocyte Esterase NEGATIVE NEGATIVE Urine RBC (Auto) NEGATIVE NEGATIVE Urine RBC NONE /HPF Urine WBC 2-5 /HPF Urine Squamous Epithelial Cells >50 H /HPF Urine Crystals NONE /LPF Urine Bacteria MODERATE H /HPF Urine Casts NONE /LPF Urine Mucus LARGE H /LPF Urine Culture Indicated NO White Blood Count 4.8 4.3-11.0 10^3/uL Red Blood Count 4.07 3.80-5.11 10^6/uL Hemoglobin 12.3 11.5-16.0 g/dL Hematocrit 40 35-52 % Mean Corpuscular Volume 99 80-99 fL Mean Corpuscular Hemoglobin 30 25-34 pg Mean Corpuscular Hemoglobin Concent 31 L 32-36 g/dL Red Cell Distribution Width 14.6 H 10.0-14.5 % Platelet Count 74 L 130-400 10^3/uL Mean Platelet Volume 11.6 9.0-12.2 fL Immature Granulocyte % (Auto) 2 % Neutrophils (%) (Auto) 58 42-75 % Lymphocytes (%) (Auto) 26 12-44 % Monocytes (%) (Auto) 11 0-12 % Eosinophils (%) (Auto) 2 0-10 % Basophils (%) (Auto) 0 0-10 % Neutrophils # (Auto) 2.8 1.8-7.8 10^3/uL Lymphocytes # (Auto) 1.2 1.0-4.0 10^3/uL Monocytes # (Auto) 0.5 0.0-1.0 10^3/uL Eosinophils # (Auto) 0.1 0.0-0.3 10^3/uL Basophils # (Auto) 0.0 0.0-0.1 10^3/uL Immature Granulocyte # (Auto) 0.1 0.0-0.1 10^3/uL Sodium Level 141 135-145 MMOL/L Potassium Level 4.4 3.6-5.0 MMOL/L Chloride Level 103 98-107 MMOL/L Carbon Dioxide Level 27 21-32 MMOL/L Anion Gap 11 5-14 MMOL/L Blood Urea Nitrogen 15 7-18 MG/DL Creatinine 1.34 H 0.60-1.30 MG/DL Estimat Glomerular Filtration Rate 43 BUN/Creatinine Ratio 11 Glucose Level 100 70-105 MG/DL Calcium Level 9.3 8.5-10.1 MG/DL Corrected Calcium 10.0 8.5-10.1 MG/DL Total Bilirubin 0.7 0.1-1.0 MG/DL Aspartate Amino Transf (AST/SGOT) 50 H 5-34 U/L Alanine Aminotransferase (ALT/SGPT) 34 0-55 U/L Alkaline Phosphatase 124 40-136 U/L Total Protein 8.1 6.4-8.2 GM/DL Albumin 3.1 L 3.2-4.5 GM/DL Lipase 36 8-78 U/L Test 02/17/23 13:06 02/17/23 13:53 02/17/23 14:13 02/17/23 14:52 Range/Units Glucometer 127 H 58 *L 64 L 105 70-110 MG/DL Test 02/17/23 15:21 Range/Units Glucometer 119 H 70-110 MG/DL My Orders Orders - VANESSA BEACH MD Comprehensive Metabolic Panel (02/17/23 12:48) Lipase (02/17/23 12:48) Ua Culture If Indicated (02/17/23 12:48) Ed Iv/Invasive Line Start (02/17/23 12:48) Cbc With Automated Diff (02/17/23 12:48) Accucheck Stat ONCE (02/17/23 12:48) Covid 19 Inhouse Test (02/17/23 12:48) D50w (Emergency) Syringe (Dextrose 50% 5 (02/17/23 12:48) Ns Iv 1000 Ml (Ns Iv 1000 Ml) (02/17/23 12:48) Ondansetron Injection (Ondansetron Inj (02/17/23 12:48) Vital Signs/I&O 02/17/23 02/17/23 12:42 15:31 Temp 36.7 Pulse 88 83 Resp 26 16 B/P (MAP) 158/70 (99) 144/81 Pulse Ox 97 94 O2 Delivery Nasal Cannula Nasal Cannula O2 Flow Rate 4.00 2.00 Capillary Refill : Less Than 3 Seconds Blood Pressure Mean: 99 Progress Note #1: Progress Note Potential diagnosis of viral syndrome, COVID, pancreatitis, gastroenteritis. Since she took her regular dose of insulin this morning it is understandable that her sugar has been low. She has not been consistently eating or drinking the last 2 to 3 days due to the nausea, vomiting, diarrhea. Check an Accu-Chek to see what her sugar is now. Establish peripheral IV access and send labs for complete blood count, comprehensive metabolic profile, lipase, nasal swab for COVID. Urinalysis to look hydration and look for signs of infection. Administer normal saline 1 L IV fluid bolus for hydration, Zofran 4 mg IV for nausea and vomiting. Her Accu-Chek was 38 so amp of D50 was ordered to try and help with her sugar. We will have her try to eat something after the Zofran to try and help stabilize her sugar. Progress Note #2: Time: 13:09 Progress Note Complete blood count shows white blood cells of 4.8 with a hemoglobin of 12.3. She has some chronic thrombocytopenia with platelets of 74. Urinalysis shows dehydration with elevated specific gravity greater than 1.030 however it is very contaminated with greater than 50 epithelial cells. Her glucose did come up to 127 after the amp of D50. 1353 repeat glucose is 58. Her comprehensive metabolic profile did not show any acute electrolyte abnormalities. She has some chronic renal insufficiency with creatinine stable at 1.36. She has urinated some pudding to see if it would help with her glucose. 1413 patient is positive for COVID from her nasal swab. This could certainly be contributing to the nausea vomiting and diarrhea. Repeat Accu-Chek is now 64. If her sugars not maintaining and staying stable then may need to check with Dr. Cardona for [facility] service about observation admit to keep her glucose up and ensure she is able to keep down fluids and food to keep her glucose up. 1452 Glucose recheck is at 105. Will repeat test in 30 to 45 minutes to see if her glucose is maintaining and she can go home with decreased dosing on her insulin until she is eating and drinking normally again, or if she will need to be started on Dextrose infusion with IV fluids to help maintain her glucose since she took her normal dose of Tresiba and Novolog this am. 1521 Glucose recheck is now at 119. This was after taking protein shake. Encouraged patient to try liquid diet and get some protein drinks for 24 to 48 hours. Use the dissolving nausea tablets of Ondansetron 4 mg by taking 1 every 6 hours as needed for nausea and vomiting. Advised to cut her insulin doses in half for the next 24 to 48 hours until she is able to eat and drink more normally. Counseled on wearing a mask and quarantine for at least 3 days since her symptoms started 2 days ago. As far as the COVID she should also wear a mask for total of 10 days or until her symptoms and resolves whenever she might be around other people. If her symptoms are worsening instead of improving she could return or might need to go to [place] or [place] for evaluation and possible admission if her glucose keeps dropping. Will defer prescribing Paxlovid for the patient since she already was having GI side effects from the Covid and concerned that the Paxlovid might make that worse. Departure Impression Primary Impression: COVID-19 virus infection Additional Impressions: Nausea vomiting and diarrhea Hypoglycemia due to insulin Disposition: 01 HOME, SELF-CARE Condition: Improved Departure-Patient Inst. Decision time for Depature: 15:24 Referrals: JONNATHAN THOMAS APRN (PCP) Primary Care Physician [facility] (Family) Primary Care Physician Patient Instructions: COVID-19 ED, Nausea and Vomiting, Adult ED, Diarrhea, Adult ED, Low Blood Sugar, Adult ED Add. Discharge Instructions: For the next 24 to 48 hours you should decrease your insulin and only take 1/2 of your regular doses. Do this until you are eating and drinking more normal amounts before going back to your normal doses of insulin. Use the nausea medicine, dissolving ondansetron or Zofran, to help keep your stomach settled so you can eat and drink better. Consider getting some protein drinks so that it is easier on your stomach to help get protein in addition to carbohydrates to help maintain your glucose levels. If you are worsening instead of improving on your ability to eat and drink and keeping your sugar level up over the next 1 to 2 days then you may need to return or be seen in [place] or [place] for possible admit to the hospital to help keep your stomach settled so you can eat and drink and maintain your glucose levels. You should quarantine for the next 3 days and wear a mask when around others for the next 7 days or until your symptoms resolve. All discharge instructions reviewed with patient and/or family. Voiced understanding. Scripts Ondansetron (Ondansetron Odt) 4 Mg Tab.rapdis 4 MG PO Q6H PRN for NAUSEA/VOMITING for 5 Days, #20 TAB 0 Refills Prov: VANESSA BEACH MD 02/17/23 VANESSA BEACH MD Feb 17, 2023 13:13
[2023-02-17 13:14] LABS: BILIRUBIN,URINE NEGATIVE (NEGATIVE); CLARITY,URINE CLEAR; COLOR,URINE YELLOW; GLUCOSE, URINE (UA) NEGATIVE (NEGATIVE); KETONES,URINE NEGATIVE (NEGATIVE); LEUKOCYTE ESTERASE ,URINE NEGATIVE (NEGATIVE); NITRITE,URINE NEGATIVE (NEGATIVE); PH,URINE 5.5 (5-9); PROTEIN,URINE NEGATIVE (NEGATIVE)
[2023-02-17 13:18] LABS: BACTERIA,URINE MODERATE /HPF; SQUAMOUS EPITHELIAL CELL,UR >50 /HPF
[2023-02-17 13:35] LABS: ALBUMIN 3.1 GM/DL (3.2-4.5); BILIRUBIN,TOTAL 0.7 MG/DL (0.1-1.0); CALCIUM 9.3 MG/DL (8.5-10.1); CREATININE SERUM 1.34 MG/DL (0.60-1.30); POTASSIUM 4.4 MMOL/L (3.6-5.0); TOTAL PROTEIN 8.1 GM/DL (6.4-8.2)
[2023-02-17] MEDS ORDERED: ONDA4TAB11 PO (15:30)
[2023-02-17 15:31] VITALS: BP 144/81
== END 2023-02-17 15:34 | disposition home or self-care (01) ==
LOC: EDUNIT# 12:35 → ER FS 12:37
DX: U07.1 COVID-19 (principal); E11.649 Type 2 diabetes mellitus with hypoglycemia without coma; E11.40 Type 2 diabetes mellitus with diabetic neuropathy, unspecified; R19.7 Diarrhea, unspecified; J44.9 Chronic obstructive pulmonary disease, unspecified; E66.9 Obesity, unspecified; Z99.81 Dependence on supplemental oxygen; Z68.30 Body mass index [BMI] 30.0-30.9, adult; Z20.822 Contact with and (suspected) exposure to COVID-19
CPT/HCPCS: 36415; 80053; 81000; 82947; 83690; 85025; 87636

== ENCOUNTER 2023-02-17 19:02 | Inpatient (IN) | payer MEDICARE, MEDICAID ==
[~2023-02-17] VITALS: Ht 162.6 cm; Wt 138.7 kg
[~2023-02-17 19:02] MED LIST changes: +ONDA4TAB11 PO
[2023-02-17 19:20] LABS: ABG BASE EXCESS 7.3 MMOL/L (-2.5-2.5); ABG OXYGEN SATURATION 68 % (94-100); ABG PCO2 48 MMHG (35-45); ABG PH 7.44 (7.37-7.43); ABG TCO2 34.1 MMOL/L (21.0-31.0)
[2023-02-17 19:21] LABS: INSPIRED O2 4; PATIENT TEMP 37.3; VENTILATOR NO
[2023-02-17 19:22] LABS: ABG PO2 34 MMHG (79-93)
--- NOTE | 2023-02-17 19:23 | ED General ---
General Chief Complaint: COVID19 Suspect/Confirmed Stated Complaint: COVID ANXIETY Source of Information: Patient, EMS, Old Records History of Present Illness Date Seen by Provider: Feb 17, 2023 Time Seen by Provider: 19:02 Initial Comments 67-year-old female presenting with complaints of feeling short of breath and anxious. She was seen here earlier today for low blood sugar as she has been having nausea, vomiting, diarrhea for the last 2 to 3 days. She was diagnosed with COVID during her ED visit this afternoon. We were able to get her sugar stabilized and she was discharged home. She had had something to eat and drink at home and has not had any further vomiting. She states that she has continued to have diarrhea at home. She was anxious and scared of being along and worried that her sugar was dropping or she would have trouble with her breathing. Timing/Duration: 1-3 Hours Severity: Severe Associated Systoms: No Chest Pain; Cough; No Diaphoresis, No Fever/Chills, No Headaches; Loss of Appetite, Malaise, Nausea/Vomiting; No Rash, No Seizure; Shortness of Air; No Syncope Allergies and Home Medications Allergies Coded Allergies: No Known Drug Allergies (Unverified , 12/27/18) Patient Home Medication List Home Medication List Reviewed: Yes Albuterol Sulfate (Ventolin Hfa) 1 Puff Puff, 2 PUFF IH Q4H PRN for SHORTNESS OF BREATH, (Reported) Entered as Reported by: BEATRIZ MCCLAIN on 12/29/18 1112 Albuterol Sulfate (Albuterol Sulfate) 2.5 Mg/0.5 Ml Vial.neb, 2.5 MG INH Q6H PRN for SHORTNESS OF BREATH, (Reported) Entered as Reported by: BEATRIZ MCCLAIN on 03/31/19 1002 Amlodipine Besylate (Amlodipine Besylate) 5 Mg Tablet, 5 MG PO DAILY, (Reported) Entered as Reported by: ADRIANE PADILLA on 07/02/19 1359 Aspirin (Aspir 81) 81 Mg Tablet.dr, 81 MG PO DAILY, (Reported) Entered as Reported by: ADRIANE PADILLA on 07/02/19 1359 Clopidogrel Bisulfate (Plavix) 75 Mg Tablet, 75 MG PO DAILY, (Reported) Entered as Reported by: JEREMIAH RUGGIERO on 12/27/18 1428 Famotidine (Pepcid) 20 Mg Tablet, 20 MG PO DAILY Prescribed by: SANNA SZYMANSKI MD on 12/16/22 1554 Fluticasone/Salmeterol (Advair Hfa 115-21 Mcg Inhaler) 12 Gm Hfa.aer.ad, 2 PUFF IH DAILY, (Reported) Entered as Reported by: BEATRIZ MCCLAIN on 03/31/19 1004 Furosemide (Lasix) 20 Mg Tablet, 20 MG PO DAILY, (Reported) Entered as Reported by: BEATRIZ MCCLAIN on 03/31/19 1010 Gabapentin (Gabapentin) 100 Mg Capsule, 100 MG PO TID, (Reported) Entered as Reported by: BEATRIZ MCCLAIN on 12/29/18 1112 [place] 3 Polyunsat Fatty Acids (Fish Oil 1,000 mg Capsule) 1,000 Mg Cap, 1,000 MG PO BID, (Reported) Entered as Reported by: BEATRIZ MCCLAIN on 12/29/18 1112 Ondansetron (Ondansetron Odt) 4 Mg Tab.rapdis, 4 MG SL Q6H PRN for NAUSEA/VOMITING Prescribed by: SANNA SZYMANSKI MD on 12/16/22 1554 Ondansetron (Ondansetron Odt) 4 Mg Tab.rapdis, 4 MG PO Q6H PRN for NAUSEA/VOMITING Prescribed by: VANESSA BEACH on 02/17/23 1530 Pantoprazole Sodium (Pantoprazole Sodium) 40 Mg Tablet.dr, 40 MG PO DAILY, (Reported) Entered as Reported by: ADRIANE PADILLA on 07/02/19 1359 Pioglitazone HCl (Pioglitazone HCl) 30 Mg Tablet, 30 MG PO DAILY, (Reported) Entered as Reported by: BEATRIZ MCCLAIN on 12/29/18 1112 Propranolol HCl (Propranolol HCl) 10 Mg Tablet, 10 MG PO BID, (Reported) Entered as Reported by: BEATRIZ MCCLAIN on 12/29/18 1112 Sertraline HCl (Sertraline HCl) 50 Mg Tablet, 25 MG PO DAILY, (Reported) Entered as Reported by: ADRIANE PADILLA on 07/02/19 1359 Simvastatin (Simvastatin) 20 Mg Tablet, 20 MG PO HS, (Reported) Entered as Reported by: ADRIANE PADILLA on 07/02/19 1359 Tiotropium [place] (Spiriva) 1 Inh Aerp, 2 PUFF PO DAILY, (Reported) Entered as Reported by: JEREMIAH RUGGIERO on 12/27/18 1428 Tramadol HCl (Tramadol HCl) 50 Mg Tablet, 50 MG PO Q6H PRN for PAIN Prescribed by: SOLEDAD DRISCOLL on 08/12/20 1701 Review of Systems Review of Systems Constitutional: No chills, No fever EENTM: no symptoms reported Respiratory: cough, short of breath Cardiovascular: no symptoms reported Gastrointestinal: see HPI Genitourinary: No dysuria Musculoskeletal: no symptoms reported Skin: No rash Psychiatric/Neurological: Anxiety Past Agvzrwd-Kvlbuy-Wvddix Hx Seasonal Allergies Seasonal Allergies: No Past Medical History Surgery/Hospitalization HX: DM, HTN, Hypothyroidism, COPD, obesity, COVID February 2023, obstructive sleep apnea Surgeries: Yes (bilateral carotid, knee scope) Respiratory: Yes (O2 DEPENDENT AT 4L) Sleep Apnea, COPD Cardiac: Yes Hypertension Neurological: Yes (heat stroke) Neuropathy Genitourinary: Yes Renal Failure Gastrointestinal: Yes Chronic Diarrhea Musculoskeletal: No Endocrine: Yes Diabetes, Non-Insulin dep HEENT: No Cancer: No Did You Recieve Any Treatments: No Psychosocial: Yes Anxiety, Depression Integumentary: No Blood Disorders: No Adverse Reaction/Blood Tranf: No Family Medical History Cardiovascular disease Hypertension 19 FATHER Physical Exam Vital Signs Vital Signs - First Documented 02/17/23 19:03 Temp 37.3 Pulse 98 Resp 24 B/P (MAP) 161/138 (146) Pulse Ox 95 O2 Delivery Nasal Cannula O2 Flow Rate 4.00 Capillary Refill : Height, Weight, BMI Height: 5'4.00" Weight: 233lbs. 14.4oz. 106.822233he; 30.00 BMI Method:Stated General Appearance: Anxious, Obese, Other (Patient is hyperventilating and appears very anxious) HEENT: PERRL/EOMI, Pharynx Normal Respiratory: Chest Non Tender, Decreased Breath Sounds, Other (Hy perventilating) Cardiovascular: Regular Rate, Rhythm, Normal Peripheral Pulses Gastrointestinal: Normal Bowel Sounds, No Pulsatile Mass, Non Tender, Soft Extremity: Normal Capillary Refill, Normal Range of Motion, Pedal Edema (Bilateral 1+ pitting edema) Neurologic/Psychiatric: Alert, Oriented x3 Skin: Normal Color, Warm/Dry Progress/Results/Core Measures Suspected Sepsis SIRS Temperature: Pulse: Respiratory Rate: Laboratory Tests 02/17/23 19:20: White Blood Count 5.5 Blood Pressure / Mean: Laboratory Tests 02/17/23 19:20: Creatinine 1.54H, Platelet Count 107L, Total Bilirubin 0.5 Results/Orders Lab Results Laboratory Tests Test 02/17/23 19:18 02/17/23 19:20 Range/Units Blood Gas Puncture Site LEFT WRIST Blood Gas Patient Temperature 37.3 Arterial Blood pH 7.44 H 7.37-7.43 Arterial Blood Partial Pressure CO2 48 H 35-45 MMHG Arterial Blood Partial Pressure O2 34 *L 79-93 MMHG Arterial Blood HCO3 33 H 23-27 MMOL/L Arterial Blood Total CO2 34.1 H 21.0-31.0 MMOL/L Arterial Blood Oxygen Saturation 68 L 94-100 % Arterial Blood Base Excess 7.3 H -2.5-2.5 MMOL/L Jovanny Test NA Blood Gas Ventilator Setting NO Blood Gas Inspired Oxygen 4 White Blood Count 5.5 4.3-11.0 10^3/uL Red Blood Count 3.63 L 3.80-5.11 10^6/uL Hemoglobin 11.2 L 11.5-16.0 g/dL Hematocrit 37 35-52 % Mean Corpuscular Volume 102 H 80-99 fL Mean Corpuscular Hemoglobin 31 25-34 pg Mean Corpuscular Hemoglobin Concent 30 L 32-36 g/dL Red Cell Distribution Width 14.7 H 10.0-14.5 % Platelet Count 107 L 130-400 10^3/uL Mean Platelet Volume 11.2 9.0-12.2 fL Immature Granulocyte % (Auto) 1 % Neutrophils (%) (Auto) 51 42-75 % Lymphocytes (%) (Auto) 34 12-44 % Monocytes (%) (Auto) 11 0-12 % Eosinophils (%) (Auto) 3 0-10 % Basophils (%) (Auto) 0 0-10 % Neutrophils # (Auto) 2.8 1.8-7.8 10^3/uL Lymphocytes # (Auto) 1.9 1.0-4.0 10^3/uL Monocytes # (Auto) 0.6 0.0-1.0 10^3/uL Eosinophils # (Auto) 0.1 0.0-0.3 10^3/uL Basophils # (Auto) 0.0 0.0-0.1 10^3/uL Immature Granulocyte # (Auto) 0.1 0.0-0.1 10^3/uL Sodium Level 140 135-145 MMOL/L Potassium Level 4.1 3.6-5.0 MMOL/L Chloride Level 102 98-107 MMOL/L Carbon Dioxide Level 27 21-32 MMOL/L Anion Gap 11 5-14 MMOL/L Blood Urea Nitrogen 16 7-18 MG/DL Creatinine 1.54 H 0.60-1.30 MG/DL Estimat Glomerular Filtration Rate 37 BUN/Creatinine Ratio 10 Glucose Level 217 H 70-105 MG/DL Calcium Level 9.1 8.5-10.1 MG/DL Corrected Calcium 9.8 8.5-10.1 MG/DL Total Bilirubin 0.5 0.1-1.0 MG/DL Aspartate Amino Transf (AST/SGOT) 36 H 5-34 U/L Alanine Aminotransferase (ALT/SGPT) 28 0-55 U/L Alkaline Phosphatase 138 H 40-136 U/L C-Reactive Protein < 0.30 <0.50 MG/DL Total Protein 7.6 6.4-8.2 GM/DL Albumin 3.1 L 3.2-4.5 GM/DL My Orders Orders - VANESSA BEACH MD Cbc With Automated Diff (02/17/23 19:16) Comprehensive Metabolic Panel (02/17/23 19:16) Chest 1 View Ap/Pa Only (02/17/23 19:16) Ed Iv/Invasive Line Start (02/17/23 19:16) Crp Fs (02/17/23 19:16) Arterial Blood Gas (02/17/23 19:16) O2 (02/17/23 19:16) Ed Admission (Communication) (02/17/23 20:04) Vital Signs/I&O 02/17/23 19:03 Temp 37.3 Pulse 98 Resp 24 B/P (MAP) 161/138 (146) Pulse Ox 95 O2 Delivery Nasal Cannula O2 Flow Rate 4.00 Capillary Refill : Progress Note #1: Progress Note Differential diagnosis includes COVID, viral syndrome, anxiety, electrolyte imbalance, COPD exacerbation. EMS reports her glucose was 190. She is very anxious and tearful at times. Draw ABG to see what her acid-base balance and oxygenation is doing. Repeat comprehensive metabolic profile and complete blood counts along with CRP. Continue on her home O2 of 4 L/min by nasal cannula. Progress Note #2: Progress Note ABG appeared to be venous as it showed pH 7.44, pCO2 of 58 with pO2 of 38, however her oxygen saturation was 96% on her home 4 Lpm by n.c. Comprehensive metabolic profile was stable without acute electrolyte change from earlier this afternoon but she did have increase in her Cr from 1.36 to 1.54. Chest xray without acute infiltrate. She continues to have some elevated blood pressures but she is shaking and tremulous in room as she is so anxious about her breathing and being diagnosed with Covid. With her history of COPD and now having Covid in addition to n/v/d over the last 3 days and still not eating or drinking well at home despite no further emesis after Zofran in ED, will check w júnior Cardona, Hospitalist section 8 property manager for [facility] about admit for IV fluids, monitoring of her glucose and her breathing. Diagnostic Imaging Diagonstic Imaging: Xray Plain Films/CT/US/NM/MRI: chest Comments [facility]. [place], [place] NAME: SERGE VENEGAS [facility] REC#: [id number] PT STATUS: REG ER : 1955 PHYSICIAN: VANESSA BEACH MD ADMIT DATE: 02/17/23/ER FS Draft Date of Exam:02/17/23 CHEST 1 VIEW AP/PA ONLY INDICATION: Short of breath, anxious. COMPARISON: 08/12/2020. FINDINGS: Single frontal view of the chest demonstrates moderate cardiomegaly. Pulmonary vasculature is within normal limits. The lungs are well aerated and clear. No large pleural effusion or pneumothorax is seen. The visualized osseous structures show no acute abnormality. IMPRESSION: Cardiomegaly, but no evidence of failure or focal infiltrate. Dictated on workstation # [id number] Dict: 02/17/231940 Trans: 02/17/231946 [facility] [id number] Interpreted by: SHANNA CROFT MD Electronically signed by: Reviewed: Reviewed by Me Departure Communication (Admissions) Time/Spoke to Admitting Phy: 19:58 d/w Dr. Cardona, [facility] hospitalist, about the patient presentation and that she was here for almost 4 hours this afternoon trying to stabilize her sugar and control her n/v/d. She was diagnosed with covid but was doing better with medicine here in ED and was discharged home on zofran. She returns now anxious, short of breath, shaking her arms and tearful at times and upset about having Covid. She states she has not been able to eat after getting home because nothing tasted good and she has had diarrhea since she went home. her CBC is stable but she has had slight increase inher Cr to 1.54 from 1.38 earlier. She accepted patient for observation to cardiac step down unit. Impression Primary Impression: COVID-19 virus infection Additional Impressions: Shortness of breath Anxiety Nausea vomiting and diarrhea Disposition: 30 STILL A PATIENT Condition: Stable Admissions Decision to Admit Reason: Admit from ER (General) Decision to Admit/Date: Feb 17, 2023 Time/Decision to Admit Time: 19:58 Departure-Patient Inst. Referrals: JONNATHAN THOMAS APRN (PCP) Primary Care Physician [facility] (Family) Primary Care Physician VANESSA BEACH MD Feb 17, 2023 19:23
[2023-02-17 19:24] LABS: BASOPHILS % (AUTO) 0 % (0-10); EOSINOPHILS # (AUTO) 0.1 10^3/uL (0.0-0.3); EOSINOPHILS % (AUTO) 3 % (0-10); HEMATOCRIT 37 % (35-52); HEMOGLOBIN 11.2 g/dL (11.5-16.0); LYMPHOCYTES # (AUTO) 1.9 10^3/uL (1.0-4.0); LYMPHOCYTES % (AUTO) 34 % (12-44); MEAN CORPUSCULAR HEMOGLOBIN 31 pg (25-34); MEAN CORPUSCULAR HGB CONC 30 g/dL (32-36); MEAN CORPUSCULAR VOLUME 102 fL (80-99); MEAN PLATELET VOLUME 11.2 fL (9.0-12.2); MONOCYTES # (AUTO) 0.6 10^3/uL (0.0-1.0); MONOCYTES % (AUTO) 11 % (0-12); NEUTROPHILS # (AUTO) 2.8 10^3/uL (1.8-7.8); NEUTROPHILS % (AUTO) 51 % (42-75); PLATELET COUNT 107 10^3/uL (130-400); WHITE BLOOD COUNT 5.5 10^3/uL (4.3-11.0)
[2023-02-17 19:43] LABS: ALANINE AMINOTRANSFERASE 28 U/L (0-55); ALBUMIN 3.1 GM/DL (3.2-4.5); ALKALINE PHOSPHATASE 138 U/L (40-136); BILIRUBIN,TOTAL 0.5 MG/DL (0.1-1.0); BUN/CREATININE RATIO 10; CALCIUM 9.1 MG/DL (8.5-10.1); CARBON DIOXIDE 27 MMOL/L (21-32); CHLORIDE 102 MMOL/L (98-107); CREATININE SERUM 1.54 MG/DL (0.60-1.30); GFR ESTIMATED 37; GLUCOSE 217 MG/DL (70-105); POTASSIUM 4.1 MMOL/L (3.6-5.0); SODIUM 140 MMOL/L (135-145); TOTAL PROTEIN 7.6 GM/DL (6.4-8.2)
--- NOTE | 2023-02-17 19:47 | Diagnostic Imaging Report ---
INDICATION: Short of breath, anxious. COMPARISON: 08/12/2020. FINDINGS: Single frontal view of the chest demonstrates moderate cardiomegaly. Pulmonary vasculature is within normal limits. The lungs are well aerated and clear. No large pleural effusion or pneumothorax is seen. The visualized osseous structures show no acute abnormality. IMPRESSION: Cardiomegaly, but no evidence of failure or focal infiltrate. Dictated by: Dictated on workstation # [id number]
[2023-02-17 22:25] VITALS: BP 114/83
[2023-02-17] MEDS ORDERED: NS IV 500 ML 500 ML IV PRN (22:45)
[2023-02-17] MEDS ORDERED: ONDANSETRON 4 MG ORAL DISSOLVE TABLET PO PRN (22:45)
[2023-02-17] MEDS ORDERED: MELATONIN 3 MG TABLET PO PRN (22:45)
[2023-02-17] MEDS ORDERED: LORazepam 0.5 MG TABLET PO PRN (22:45)
[2023-02-17] MEDS ORDERED: ACETAMINOPHEN 325 MG TABLET PO PRN (22:45)
[2023-02-17] MEDS ORDERED: hydrALAZINE INJECTION 20 MG/ML VIAL IV PRN (22:45)
[2023-02-17] MEDS ORDERED: diphenhydrAMINE INJ 50 MG/ML VIAL IVP PRN (22:45)
[2023-02-17] MEDS ORDERED: guaiFENesin SYRUP 100 MG/5 ML 10 ML PO PRN (22:45)
[2023-02-17] MEDS ORDERED: METOCLOPRAMIDE INJ 10 MG/2 ML IVP PRN ×2 (22:45→23:30)
[2023-02-17] MEDS ORDERED: oxyCODONE IMMEDIATE RELEASE 5 MG TABLET PO PRN (22:45)
[2023-02-17] MEDS ORDERED: BISACODYL 10 MG SUPPOSITORY PR PRN (22:45)
[2023-02-17] MEDS ORDERED: HYDROmorphone INJECTION 2 MG/ML VIAL IV PRN (22:45)
[2023-02-17] MEDS ORDERED: ONDANSETRON INJECTION 4 MG/2 ML (SDV) IV PRN (22:45)
[2023-02-17] MEDS ORDERED: cloNIDine 0.1 MG TABLET PO PRN (22:45)
[2023-02-17] MEDS ORDERED: ANTACID SUSPENSION 30 ML UDC PO PRN (22:45)
[2023-02-17] MEDS ORDERED: LACTULOSE SYRUP 10GM/15ML 30ML UDC PO PRN (22:45)
[2023-02-17] MEDS ORDERED: NS IV 1000 ML 1,000 ML IV SCH (22:45)
[2023-02-17] MEDS ORDERED: diphenhydrAMINE 25 MG TABLET PO PRN (22:45)
[2023-02-17 23:00] VITALS: BP 151/119
[2023-02-17] MEDS ORDERED: RT-ALBUTEROL HFA 8.5 GM INHALER IH PRN (23:15)
[2023-02-18] VITALS (10 sets, daily range): BP systolic 113–184; BP diastolic 56–92
[2023-02-18 05:03] LABS: EOSINOPHILS # (AUTO) 0.2 10^3/uL (0.0-0.3); EOSINOPHILS % (AUTO) 4 % (0-10); MEAN CORPUSCULAR VOLUME 100 fL (80-99); MEAN PLATELET VOLUME 11.6 fL (9.0-12.2); WHITE BLOOD COUNT 5.3 10^3/uL (4.3-11.0)
[2023-02-18 05:05] LABS: BASOPHILS % (AUTO) 0 % (0-10); HEMATOCRIT 34 % (35-52); HEMOGLOBIN 10.5 g/dL (11.5-16.0); LYMPHOCYTES # (AUTO) 2.2 10^3/uL (1.0-4.0); LYMPHOCYTES % (AUTO) 41 % (12-44); MEAN CORPUSCULAR HEMOGLOBIN 31 pg (25-34); MEAN CORPUSCULAR HGB CONC 31 g/dL (32-36); MONOCYTES # (AUTO) 0.6 10^3/uL (0.0-1.0); MONOCYTES % (AUTO) 12 % (0-12); NEUTROPHILS # (AUTO) 2.2 10^3/uL (1.8-7.8); NEUTROPHILS % (AUTO) 41 % (42-75); PLATELET COUNT 106 10^3/uL (130-400)
[2023-02-18 05:14] LABS: ABG BASE EXCESS 6.8 MMOL/L (-2.5-2.5); ABG OXYGEN SATURATION 99 % (94-100); ABG PCO2 62 MMHG (35-45); ABG PO2 105 MMHG (79-93); ABG TCO2 34.4 MMOL/L (21.0-31.0)
[2023-02-18 05:18] LABS: ALLENS TEST YES-POS; INSPIRED O2 4.5L; VENTILATOR NO
[2023-02-18 05:19] LABS: ABG PH 7.34 (7.37-7.43)
[2023-02-18 05:27] LABS: ALBUMIN 2.9 GM/DL (3.2-4.5); BILIRUBIN,TOTAL 0.5 MG/DL (0.1-1.0); CALCIUM 8.4 MG/DL (8.5-10.1); CREATININE SERUM 1.69 MG/DL (0.60-1.30); MAGNESIUM 1.9 MG/DL (1.6-2.4); PHOSPHORUS 3.7 MG/DL (2.3-4.7); POTASSIUM 3.6 MMOL/L (3.6-5.0); TOTAL PROTEIN 7.1 GM/DL (6.4-8.2)
[2023-02-18] MEDS ORDERED: DEXTROSE 50% 50 ML (IMS) SYR ONE (05:37)
[2023-02-18] MEDS: inSUlin ASPART 1 UNIT/0.01 ML (PER UNIT) SC SCH ×5 (06:07→22:00)
[2023-02-18] MEDS: POTASSIUM CL 10MEQ/50ML IVPB 50 ML IV SCH (06:07)
[2023-02-18] MEDS: MAGNESIUM 1 GM/100 ML IVPB 100 ML IV SCH ×3 (06:16→07:19)
[2023-02-18] MEDS: POTASSIUM CHLORIDE 20 MEQ TABLET PO SCH (06:16)
--- NOTE | 2023-02-18 07:01 | History & Physical-Hospitalist ---
History of Present Illness HPI/Chief Complaint CC: Acute on chronic respiratory failure due to COVID PNA HPI: This is a 67yoWF clinic patient of [facility] who has a h/o O2 dependent COPD maintained on 4L/min of O2 who presented to [facility] for the second time yesterday with low sugar and anxiousness about COVID. Apparently she has been taking her scheduled insulin the past 3 days without eating and drinking or checking her sugar although she has a DEXCOM on her right arm. Her sugar was 38 this am and amp of D50 given. IV decadron initiated due to lung disease and hypoxia. Source: patient Date Seen 02/18/23 Time Seen by a Provider: 10:00 Attending Physician Dolores Burr Aprn PCP Admitting Physician: Flor Cardona DO Attending Physician: Flor Cardona DO Referring Physician Date of Admission Feb 17, 2023 at 22:19 Home Medications & Allergies Home Medications Reviewed patient Home Medication Reconciliation performed by pharmacy medication reconciliations zone maintenance technician and/or nursing. Patients Allergies have been reviewed. Allergies Allergies Coded Allergies No Known Drug Allergies (Unverified12/27/18) Past Irtlcnw-Nmtbvt-Npbeyc Hx Patient Social History Marrital Status: single Employed/Student: retired Tobacco Use?: No Smoking Status: Former Smoker Substance use?: No Alcohol Use?: No Pt feels they are or have been: No Immunizations Up To Date Date of Influenza Vaccine: Mar 17, 2019 Seasonal Allergies Seasonal Allergies: No Current Status Communicates: Verbally Primary Language: Yemeni Preferred Spoken Language: Yemeni Is interpretation needed?: No Sensory deficits: Vision impairment Implanted or Applied Medical D: Other Past Medical History Sleep Apnea, COPD Hypertension Neuropathy Renal Failure Chronic Diarrhea Diabetes, Non-Insulin dep Did You Recieve Any Treatments: No Anxiety, Depression Blood Disorders: No Adverse Reaction/Blood Tranf: No Tobacco Use Family Medical History Cardiovascular disease Hypertension 19 FATHER Review of Systems Constitutional: see HPI Respiratory: dyspnea on exertion Physical Exam Physical Exam Vital Signs Vital Signs - First Documented 02/17/23 23:01 FiO2 36 Capillary Refill : Less Than 3 Seconds Height, Weight, BMI Height: 5'4.00" Weight: 233lbs. 14.4oz. 106.329347fy; 50.07 BMI Method:Stated General Appearance: No Apparent Distress, WD/WN, Chronically ill, Obese Respiratory: No Accessory Muscle Use, No Respiratory Distress, Decreased Breath Sounds Cardiovascular: Regular Rate, Rhythm Neurologic/Psychiatric: Alert, Oriented x3, Depressed Affect Results Results/Procedures Labs Laboratory Tests 02/17/23 19:20 02/18/23 04:00 Patient resulted labs reviewed. Assessment/Plan Admission Diagnosis Assessment: Acute on chronic respiratory failure COVID PNA Hypoxia O2 dependent on 4L/min at home Former smoker HTN MARIELA Obesity Anxiety Plan: ICU High risk for intubation Monitor closely Admission Status: Inpatient Order (span 2 midnights) Reason for Inpatient Admission: resp failure FLOR CARDONA DO Feb 18, 2023 07:01
[2023-02-18] MEDS ORDERED: D5 NS 1,000 ML IV SOLN 1,000 ML IV SCH (07:15)
[2023-02-18] MEDS ORDERED: NS IV 500 ML 500 ML IV PRN (07:15)
[2023-02-18] MEDS: AZITHROMYCIN INJECTION 500 MG in NS (IVPB) 250 ML 250 ML IV SCH (08:49)
[2023-02-18] MEDS: DOCUSATE SODIUM 100 MG CAPSULE PO SCH ×2 (08:50→22:00)
[2023-02-18] MEDS: PANTOPRAZOLE INJECTION 40 MG VIAL IV SCH (08:53)
[2023-02-18] MEDS: dexAMETHasone INJ 10 MG/ML 1 ML VIAL IV SCH (08:54)
[2023-02-18] MEDS: ENOXAPARIN 60 MG/0.6 ML SYRINGE SC SCH ×2 (08:54→22:00)
--- NOTE | 2023-02-18 10:49 | Tele-ICU Progress Note ---
Subjective Date Seen by a Provider: Feb 18, 2023 Time Seen by a Provider: 10:49 Subjective/Events-last exam (Tele-ICU Physician , Progress Note ) Service provided via interactive audio and video telecommunications E-CARE system to a patient admitted to ICU bed in [facility]. Patient is seen today due to persistent need of ICU care Available chart/ vitals / labs / Images reviewed Video assessment done using teleICU camera, rest of exam as per RN Discussed with RN Events overnight : Afebrile hemodynamically stable Respiratory - 4l I/O = Pos Drips: NS d5 NS Pressors- no Hospital course: (02/17) 67yF admit +cov A/P LJFL-Fsvzexutlsd-1/COVID-19 ( Symptom onset ~02/15/ DX 02/17 --Dexamethasone 6 qd started Suspected superimposed bact PNA -empiric abx -cefepime = z max started Hyperglycemia / Diabetes Mellitus - ISS , close f/up on steroids EUDARDO - mild - with dehydration - follow Diarrhea - due to COvid - follow COPD - home 4 Lpm by n.c MARIELA - 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 Discussed with RN to reach out if any questions or concerns Case and care daily discussed on multidisciplinary rounds ( RN, PharmD, Wafer Polisher , Respiratory Therapy, fruit i farmworker ) A total of 20 minutes of critical care time was devoted to this patient today, required to treat and/or prevent further deterioration of critical care condition ( as above ) . I am remotely monitoring this patient from another state. I am unable to do the bedside exam, and history/physical and pertinent information is taken from other notes in the computer and bedside staff. Sepsis Event Evaluation Height, Weight, BMI Height: 5'4.00" Weight: 233lbs. 14.4oz. 106.270752tj; 50.07 BMI Method:Stated Exam Exam Patient acknowledged, consented, and participated in this virtual visit which was conducted using real time audio/video Vital Signs Date Time Temp Pulse Resp B/P (MAP) Pulse Ox O2 Delivery O2 Flow Rate FiO2 02/18/23 10:00 69 19 142/71 (94) 95 Nasal Cannula 4.00 9/4/23 09:00 71 22 118/76 (90) 96 Nasal Cannula 4.00 02/18/23 08:00 69 13 132/68 (89) 96 Nasal Cannula 4.00 02/18/23 08:00 69 13 132/68 (89) 96 Nasal Cannula 4.00 02/18/23 07:00 75 13 132/70 (90) 97 Nasal Cannula 4.00 02/18/23 07:00 75 15 132/70 (90) 97 Nasal Cannula 4.00 02/18/23 06:03 75 16 144/69 (98) 96 Nasal Cannula 4.00 02/18/23 06:00 74 16 184/92 (130) 96 Nasal Cannula 4.00 02/18/23 05:00 81 19 165/81 (120) 98 Nasal Cannula 4.00 02/18/23 04:00 76 16 146/77 (104) 99 Nasal Cannula 4.00 02/18/23 03:00 73 16 130/75 (91) 96 Nasal Cannula 4.00 02/18/23 02:00 71 16 113/63 (83) 98 Nasal Cannula 4.00 02/18/23 01:20 78 02/18/23 01:00 79 124/82 (94) 98 Nasal Cannula 4.00 02/18/23 01:00 02/18/23 00:00 81 22 130/56 (80) 97 Nasal Cannula 4.00 02/17/23 23:22 Nasal Cannula 4.00 02/17/23 23:01 37.3 98 95 36 02/17/23 23:00 83 151/119 (133) 98 Nasal Cannula 4.00 02/17/23 22:30 37.1 02/17/23 22:25 86 02/17/23 22:25 85 114/83 (85) 98 Nasal Cannula 4.00 02/17/23 21:37 37.0 80 22 150/52 97 Nasal Cannula 4.00 4.00 02/17/23 21:30 37.0 80 24 150/52 (84) 96 Nasal Cannula 4.00 02/17/23 21:00 86 23 134/64 (87) 97 Nasal Cannula 4.00 02/17/23 20:30 86 23 166/51 (89) 96 Nasal Cannula 4.00 02/17/23 20:00 85 22 170/49 (89) 96 Nasal Cannula 4.00 02/17/23 19:30 90 21 177/47 (90) 96 Nasal Cannula 4.00 02/17/23 19:03 95 Nasal Cannula 4.00 02/17/23 19:03 37.3 98 24 161/138 (146) 95 Nasal Cannula 4.00 I & O 02/18/23 06:59 Intake Total 350 ml Output Total 100 ml Balance 250 ml Height & Weight Height: 5'4.00" Weight: 233lbs. 14.4oz. 106.873963rq; 50.07 BMI Method:Stated General Appearance: Anxious, Obese, Other (Patient is hyperventilating and appears very anxious) HEENT: PERRL/EOMI, Pharynx Normal Respiratory: Chest Non Tender, Decreased Breath Sounds, Other (Hyperventilating) Cardiovascular: Regular Rate, Rhythm, Normal Peripheral Pulses Capillary Refill: Less Than 3 Seconds Extremity: Normal Capillary Refill, Normal Range of Motion, Pedal Edema (B ilateral 1+ pitting edema) Neurologic/Psychiatric: Alert, Oriented x3 Skin: Normal Color, Warm/Dry Results Lab Laboratory Tests 02/17/23 19:20 02/18/23 04:00 Assessment/Plan Assessment/Plan 1 CEE MENDOZA MD Feb 18, 2023 10:49
[2023-02-18] MEDS: cefTRIAXone IV/IM 1,000 MG in NS (IVPB) 50 ML 50 ML IV SCH ×3 (22:00)
[2023-02-19 05:24] LABS: BASOPHILS % (AUTO) 0 % (0-10); EOSINOPHILS % (AUTO) 0 % (0-10)
[2023-02-19 05:26] LABS: HEMATOCRIT 35 % (35-52); HEMOGLOBIN 10.6 g/dL (11.5-16.0); LYMPHOCYTES # (AUTO) 0.9 10^3/uL (1.0-4.0); LYMPHOCYTES % (AUTO) 16 % (12-44); MEAN CORPUSCULAR HEMOGLOBIN 31 pg (25-34); MEAN CORPUSCULAR HGB CONC 31 g/dL (32-36); MEAN CORPUSCULAR VOLUME 101 fL (80-99); MEAN PLATELET VOLUME 11.9 fL (9.0-12.2); MONOCYTES # (AUTO) 0.7 10^3/uL (0.0-1.0); MONOCYTES % (AUTO) 12 % (0-12); NEUTROPHILS % (AUTO) 70 % (42-75); PLATELET COUNT 106 10^3/uL (130-400); WHITE BLOOD COUNT 5.7 10^3/uL (4.3-11.0)
[2023-02-19 05:57] LABS: ALBUMIN 2.9 GM/DL (3.2-4.5); BILIRUBIN,TOTAL 0.4 MG/DL (0.1-1.0); CALCIUM 8.2 MG/DL (8.5-10.1); CREATININE SERUM 1.58 MG/DL (0.60-1.30); MAGNESIUM 2.3 MG/DL (1.6-2.4); PHOSPHORUS 2.8 MG/DL (2.3-4.7); POTASSIUM 5.2 MMOL/L (3.6-5.0); TOTAL PROTEIN 7.2 GM/DL (6.4-8.2)
[2023-02-19] MEDS ORDERED: POTASSIUM CL 10MEQ/50ML IVPB 50 ML IV SCH (06:00)
[2023-02-19] MEDS ORDERED: MAGNESIUM 1 GM/100 ML IVPB 100 ML IV SCH (06:00)
[2023-02-19] MEDS ORDERED: POTASSIUM CHLORIDE 20 MEQ TABLET PO SCH (06:00)
[2023-02-19] MEDS: POTASSIUM CL 10MEQ/50ML IVPB 50 ML IV SCH (06:06)
[2023-02-19] MEDS: POTASSIUM CHLORIDE 20 MEQ TABLET PO SCH (06:07)
[2023-02-19] MEDS: inSUlin ASPART 1 UNIT/0.01 ML (PER UNIT) SC SCH ×4 (06:07→21:43)
[2023-02-19] MEDS: MAGNESIUM 1 GM/100 ML IVPB 100 ML IV SCH (06:07)
[2023-02-19] MEDS: dexAMETHasone INJ 10 MG/ML 1 ML VIAL IV SCH (08:17)
[2023-02-19] MEDS: ENOXAPARIN 60 MG/0.6 ML SYRINGE SC SCH ×2 (08:17→21:43)
[2023-02-19] MEDS: PANTOPRAZOLE INJECTION 40 MG VIAL IV SCH (08:17)
[2023-02-19] MEDS: DOCUSATE SODIUM 100 MG CAPSULE PO SCH ×2 (08:18→21:58)
[2023-02-19] MEDS: AZITHROMYCIN INJECTION 500 MG in NS (IVPB) 250 ML 250 ML IV SCH (08:18)
--- NOTE | 2023-02-19 09:01 | Progress Note - Hospitalist ---
Subjective HPI/CC On Admission Date Seen by Provider: Feb 19, 2023 Time Seen by Provider: 10:00 CC: Acute on chronic respiratory failure due to COVID PNA HPI: This is a 67yoWF clinic patient of [facility] who has a h/o O2 dependent COPD maintained on 4L/min of O2 who presented to [facility] for the second time yesterday with low sugar and anxiousness about COVID. Apparently she has been taking her scheduled insulin the past 3 days without eating and drinking or checking her sugar although she has a DEXCOM on her right arm. Her sugar was 38 this am and amp of D50 given. IV decadron initiated due to lung disease and hypoxia. Subjective/Events-last exam No major issues Improved overall Eating well Labs reviewed Moving to Review of Systems General: Fatigue, Malaise Objective Exam Vital Signs Vital Signs Date Time Temp Pulse Resp B/P (MAP) Pulse Ox O2 Delivery O2 Flow Rate FiO2 02/19/23 19:47 36.2 80 18 136/77 (96) 97 Nasal Cannula 5.00 02/17/23 23:01 36 Capillary Refill : Less Than 3 Seconds General Appearance: No Apparent Distress, WD/WN, Chronically ill Respiratory: Lungs Clear, Normal Breath Sounds Cardiovascular: Regular Rate, Rhythm Neurologic/Psychiatric: Alert, Oriented x3 Results/Procedures Lab Laboratory Tests 02/19/23 03:45 Patient resulted labs reviewed. Assessment/Plan Assessment and Plan Assess & Plan/Chief Complaint Assessment: Acute on chronic respiratory failure COVID PNA Hypoxia O2 dependent on 4L/min at home Former smoker HTN MARIELA Obesity Anxiety Plan: Move to floor Monitor closely TRACEY ROMAN DO Feb 19, 2023 09:01
--- NOTE | 2023-02-19 09:14 | Diagnostic Imaging Report ---
INDICATION: Dyspnea. COMPARISON: 02/17/2023. TECHNIQUE: Single radiograph of the chest dated 09/19/2022. FINDINGS: The examination is severely limited secondary to patient body habitus. The cardiac silhouette is enlarged though similar to the prior examination. No focal pulmonary opacity. No pleural effusion. No pneumothorax. No acute osseous abnormality. IMPRESSION: Stable appearing examination demonstrating cardiomegaly without superimposed acute cardiopulmonary abnormality within the limits of the exam. Dictated by: Dictated on workstation # [id number]
--- NOTE | 2023-02-19 09:53 | Tele-ICU Progress Note ---
Subjective Date Seen by a Provider: Feb 19, 2023 Time Seen by a Provider: 09:53 Subjective/Events-last exam (Tele-ICU Physician , Progress Note ) Service provided via interactive audio and video telecommunications E-CARE system to a patient admitted to ICU bed in [facility]. Patient is seen today due to persistent need of ICU care Available chart/ vitals / labs / Images reviewed Video assessment done using teleICU camera, rest of exam as per RN Discussed with RN Events overnight : Afebrile hemodynamically stable Respiratory - 4l I/O = Pos Drips: NS d5 NS Pressors- no Hospital course: (02/17) 67yF admit +cov A/P HNDQ-Vzwwdyfoskj-6/COVID-19 ( Symptom onset ~02/15/ DX 02/17 --Dexamethasone 6 qd started Suspected superimposed bact PNA -empiric abx -cefepime = z max started Hyperglycemia / Diabetes Mellitus - ISS , close f/up on steroids EDUARDO/CKD - mild - with dehydration - stable today , similar to 2019 labs Diarrhea - due to COvid - follow - last episoide 02/18 COPD - home 4 Lpm by nmaira 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 Discussed with RN to reach out if any questions or concerns Case and care daily discussed on multidisciplinary rounds ( RN, PharmD, Resolution Analyst , Respiratory Therapy, family worker ) A total of 20 minutes of critical care time was devoted to this patient today, required to treat and/or prevent further deterioration of critical care condition ( as above ) . I am remotely monitoring this patient from another state. I am unable to do the bedside exam, and history/physical and pertinent information is taken from other notes in the computer and bedside staff. Sepsis Event Evaluation Height, Weight, BMI Height: 5'4.00" Weight: 233lbs. 14.4oz. [id number]; 50.04 BMI Method:Stated Exam Exam Patient acknowledged, consented, and participated in this virtual visit which was conducted using real time audio/video Vital Signs Date Time Temp Pulse Resp B/P (MAP) Pulse Ox O2 Delivery O2 Flow Rate FiO2 02/19/23 09:00 93 21 139/76 (97) 95 Nasal Cannula 4.00 02/19/23 08:14 36.4 02/19/23 08:00 72 21 158/76 (103) 93 Nasal Cannula 4.00 02/19/23 07:11 78 02/19/23 07:00 80 16 147/68 (94) 93 Nasal Cannula 4.00 02/19/23 06:00 85 16 142/75 (97) 94 Nasal Cannula 4.00 02/19/23 05:54 85 15 158/79 (105) 94 Nasal Cannula 4.00 02/19/23 05:00 92 23 97 Nasal Cannula 4.00 02/19/23 04:00 95 Nasal Cannula 4.00 02/19/23 04:00 87 20 156/80 (105) 92 Nasal Cannula 4.00 02/19/23 03:00 83 13 155/78 (103) 96 Nasal Cannula 4.00 02/19/23 02:00 81 17 129/72 (86) 89 Nasal Cannula 4.00 02/19/23 01:00 88 02/19/23 01:00 88 11 146/81 (99) 97 Nasal Cannula 4.00 02/19/23 00:00 86 17 139/80 (99) 95 Nasal Cannula 4.00 02/18/23 23:00 92 18 154/88 (103) 88 Nasal Cannula 4.00 02/18/23 23:00 95 Nasal Cannula 4.00 02/18/23 22:07 97 18 163/98 (110) 95 Nasal Cannula 4.00 02/18/23 22:00 110 21 91 Nasal Cannula 4.00 02/18/23 21:00 93 18 169/91 (117) 91 Nasal Cannula 4.00 02/18/23 20:30 96 21 178/89 (117) 93 Nasal Cannula 4.00 02/18/23 20:27 99 29 140/126 (133) 93 Nasal Cannula 4.00 02/18/23 20:00 106 29 93 Nasal Cannula 4.00 02/18/23 20:00 95 Nasal Cannula 4.00 02/18/23 19:14 Nasal Cannula 4.00 02/18/23 19:01 100 02/18/23 19:00 101 21 94 Nasal Cannula 4.00 02/18/23 18:00 96 16 96 Nasal Cannula 4.00 02/18/23 17:00 87 22 181/78 (112) 94 Nasal Cannula 4.00 02/18/23 16:00 86 20 186/94 (124) 93 Nasal Cannula 4.00 02/18/23 16:00 37.2 02/18/23 14:00 74 22 147/76 (99) 95 Nasal Cannula 4.00 02/18/23 13:00 71 22 138/85 (102) 98 Nasal Cannula 4.00 02/18/23 12:16 73 02/18/23 12:00 73 27 168/80 (109) 96 Nasal Cannula 4.00 02/18/23 12:00 37.1 02/18/23 11:00 76 27 91 Nasal Cannula 4.00 02/18/23 10:00 69 19 142/71 (94) 95 Nasal Cannula 4.00 I & O 02/19/23 07:00 Intake Total 1850 ml Balance 1850 ml Height & Weight Height: 5'4.00" Weight: 233lbs. 14.4oz. 106.303374ow; 50.04 BMI Method:Stated General Appearance: No Apparent Distress, WD/WN, Chronically ill, Obese HEENT: PERRL/EOMI, Pharynx Normal Respiratory: No Accessory Muscle Use, No Respiratory Distress, Decreased Breath Sounds Cardiovascular: Regular Rate, Rhythm Capillary Refill: Less Than 3 Seconds Extremity: Normal Capillary Refill, Normal Range of Motion, Pedal Edema (Bilateral 1+ pitting edema) Neurologic/Psychiatric: Alert, Oriented x3, Depressed Affect Skin: Normal Color, Warm/Dry Results Lab Laboratory Tests 02/17/23 19:20 02/18/23 04:00 02/19/23 03:45 Assessment/Plan Assessment/Plan 1 CEE MENDOZA MD Feb 19, 2023 09:53
[2023-02-19] MEDS ORDERED: amLODIPine 5 MG TABLET PO NR (14:30)
[2023-02-19] MEDS ORDERED: cloNIDine 0.1 MG TABLET PO PRN (14:30)
--- NOTE | 2023-02-19 15:09 | Physical Therapy Evaluation ---
PT Evaluation-General Medical Diagnosis Admission Date Feb 19, 2023 at 11:20 Medical Diagnosis: Acute on chronic respiratory failure due to COVID PNA Onset Date: Feb 18, 2023 Therapy Diagnosis Therapy Diagnosis: Gait deficit, strength deficit Height/Weight Height (Feet): 5 Height (Inches): 4.00 Weight (Pounds): 233 Weight (Ounces): 14.4 Precautions Precautions/Isolations: Droplet Isolation, Standard Precautions Weight Bear Status Right Lower Extremity: Right Full Weight Bearing Left Lower Extremity: Left Full Weight Bearing Referral Physician: Dr. Cardona Reason for Referral: Evaluation/Treatment Medical History Reviewed History: Yes Social History Home: Apartment Current Living Status: Alone Entry Into Home: Level Entry Prior Prior Level of Function SCALE: Activities may be completed with or without assistive devices. 2-Lfzjkdmaxf-qpogrpp completes the activity by him/herself with no assistance from a helper. 5-Set-up or Clean-up Assistance-helper sets up or cleans up; patient completes activity. [place] assists only prior to or following the activity. 4-Supervision or Touching Assistance-helper provides verbal cues and/or touching/steadying and/or contact guard assistance as patient completes activity. Assistance may be provided throughout the activity or intermittently. 3-Partial/Moderate Assistance-helper does LESS THAN HALF the effort. [place] lifts, holds or supports trunk or limbs, but provides less than half the effort. 2-Substantial/Maximal Assistance-helper does MORE THAN HALF the effort. [place] lifts or holds trunk or limbs and provides more than half the effort. 3-Mvwlvxlmz-uwswes does ALL the effort. Patient does none of the effort to complete the activity. Or, the assistance of 2 or more helpers is required for the patient to complete the activity. If activity was not attempted, code reason: 7-Patient Refused. 9-Not Applicable-not attempted and the patient did not perform the activity before the current illness, exacerbation or injury. 10-Not Attempted due to Environmental Limitations-(lack of equipment, weather restraints, etc.). 88-Not Attempted due to Medical Conditions or Safety Concerns. Bed Mobility: 6 Transfers (B,C,W/C): 6 Gait: 6 Stairs: 6 Indoor Mobility (Ambulation): Independent Prior Devices Use: Walker PT Evaluation-Current Subjective Patient sitting in chair upon PT arrival, agreeable to treatment. Patient rates pain at 0/10 currently. Objective Patient Orientation: Person, Place, Time, Situation Attachments: Oxygen, Grimaldo Catheter, IV ROM/Strength ROM Lower Extremities WFLs BLEs all planes Strength Lower Extremities 4-/5 BLEs all planes Sensory Vision: Functional Hearing: Impaired Sensation Right Lower Extremit: Intact Sensation Left Lower Extremity: Intact Transfers Roll Left to Right (QC): 4 Sit to Lying (QC): 4 Lying to Sitting/Side of Bed(Q: 4 Sit to Stand (QC): 4 Chair/Btj-be-Zahvi Xfer(QC): 4 Gait Does the Patient Walk?: Yes Mode of Locomotion: Walk Anticipated Mode of Locomotion: Walk Walk 10 feet (QC): 4 Distance: 36' Gait Assistive Device: FWW Balance Sitting Static: Good Sitting Dynamic: Good Standing Static: Fair Standing Dynamic: Fair Assessment/Needs Patient tolerated treatment well. Performs all bed mobility and transfers with CGA/SBA. Patient ambulates 36 feet with FWW, with CGA and verbal cues for safety, progression, posture and conservation of energy. Patient in bed post treatment with all needs met, nursing notified, call light in hand. Rehab Potential: Fair PT Alf Goals Sports Psychologist Goals PT Sports Psychologist Goals Time Frame: Mar 16, 2023 Roll Left & Right (QC): 6 Sit to Lying (QC): 6 Lying-Sitting on Side/Bed(QC): 6 Sit to Stand (QC): 6 Chair/Hvw-xr-Hlbhg Xfer(QC): 6 Toilet Transfer (QC): 6 Does the Patient Walk: Yes Walk 10 feet (QC): 6 Walk 50ft with 2 Turns (QC): 6 Walk 150 ft (QC): 4 1 Step (curb) (QC): 4 PT Plan Problem List Problem List: Activity Tolerance, Functional Strength, Safety, Balance, Gait, Transfer, Bed Mobility, ROM Treatment/Plan Treatment Plan: Continue Plan of Care Treatment Plan: Bed Mobility, Education, Functional Activity Vita, Functional Strength, Group Therapy, Gait, Safety, Therapeutic Exercise, Transfers Treatment Duration: Mar 16, 2023 Frequency: 6 times per week Estimated Hrs Per Day: .25 hour per day Patient and/or Family Agrees t: Yes Safety Risks/Education Patient Education: Gait Training, Transfer Techniques Teaching Recipient: Patient Teaching Methods: Demonstration, Discussion Response to Teaching: Verbalize Understanding, Return Demonstration Time Time In: 1330 Time Out: 1350 DATE: Feb 19, 2023 Total Billed Treatment Time: 20 Total Billed Treatment Visit, RAHEEM DUCKWORTH PT Feb 19, 2023 15:09
[2023-02-19] MEDS ORDERED: CHOL-34 PO (15:45)
[2023-02-19] MEDS ORDERED: DULA4.5P SQ (15:45)
[2023-02-19] MEDS ORDERED: INSU200I8 SQ (15:45)
[2023-02-19] MEDS ORDERED: FAMO20TA5 PO (15:45)
[2023-02-19] MEDS ORDERED: BUSP10TA95 PO (15:45)
[2023-02-19] MEDS ORDERED: SERT-412 PO (15:45)
[2023-02-19] MEDS ORDERED: CALC0.253 PO (15:45)
[2023-02-19] MEDS ORDERED: CLOP75TA28 PO (15:45)
[2023-02-19] MEDS ORDERED: INSU100I14 SQ ×2 (15:45)
[2023-02-19] MEDS ORDERED: ASPI-1238 PO (15:45)
[2023-02-19] MEDS ORDERED: LEVO75TA6 PO (15:45)
[2023-02-19] MEDS ORDERED: FURO40TA4 PO (15:45)
[2023-02-19] MEDS ORDERED: GABA300C PO ×2 (15:45)
[2023-02-19] MEDS ORDERED: amLODIPine 5 MG TABLET PO SCH (21:00)
[2023-02-19] MEDS: cefTRIAXone IV/IM 1,000 MG in NS (IVPB) 50 ML 50 ML IV SCH (21:43)
[2023-02-19] MEDS ORDERED: INSULIN ASPART SQ SCH (21:45)
[2023-02-19] MEDS ORDERED: NON-FORMULARY MEDICATION 1 EA EA (Dulaglutide (Trulicity) 4.5 MG) SQ SCH (21:45)
[2023-02-19] MEDS: busPIRone 10 MG TABLET PO SCH (23:11)
[2023-02-20] VITALS (7 sets, daily range): BP systolic 133–169; BP diastolic 64–74
[2023-02-20 06:00] LABS: EOSINOPHILS % (AUTO) 1 % (0-10); HEMOGLOBIN 10.8 g/dL (11.5-16.0); MEAN CORPUSCULAR HEMOGLOBIN 31 pg (25-34)
[2023-02-20 06:02] LABS: BASOPHILS % (AUTO) 0 % (0-10); HEMATOCRIT 35 % (35-52); LYMPHOCYTES # (AUTO) 2.1 10^3/uL (1.0-4.0); LYMPHOCYTES % (AUTO) 25 % (12-44); MEAN CORPUSCULAR HGB CONC 31 g/dL (32-36); MEAN CORPUSCULAR VOLUME 100 fL (80-99); MEAN PLATELET VOLUME 10.9 fL (9.0-12.2); MONOCYTES # (AUTO) 0.9 10^3/uL (0.0-1.0); MONOCYTES % (AUTO) 11 % (0-12); NEUTROPHILS # (AUTO) 5.2 10^3/uL (1.8-7.8); NEUTROPHILS % (AUTO) 62 % (42-75); PLATELET COUNT 117 10^3/uL (130-400); WHITE BLOOD COUNT 8.4 10^3/uL (4.3-11.0)
[2023-02-20] MEDS: inSUlin ASPART 1 UNIT/0.01 ML (PER UNIT) SC SCH ×7 (06:15→20:58)
[2023-02-20] MEDS: LEVOTHYROXINE 75 MCG TABLET PO SCH (06:38)
[2023-02-20 06:44] LABS: BILIRUBIN,TOTAL 0.4 MG/DL (0.1-1.0); CALCIUM 8.4 MG/DL (8.5-10.1); CREATININE SERUM 1.41 MG/DL (0.60-1.30); MAGNESIUM 2.2 MG/DL (1.6-2.4); POTASSIUM 4.6 MMOL/L (3.6-5.0); TOTAL PROTEIN 7.3 GM/DL (6.4-8.2)
[2023-02-20] MEDS: TIOTROPIUM INH 4 GM (SPIRIVA Respimat) IH SCH (08:19)
[2023-02-20] MEDS: FLUTICASONE/VILANTEROL 100/25 MCG (7 DOSES) IH SCH (08:19)
[2023-02-20] MEDS ORDERED: CALCITRIOL 0.25 MCG CAPSULE PO SCH (09:00)
[2023-02-20] MEDS: AZITHROMYCIN 250 MG TABLET PO SCH (10:30)
[2023-02-20] MEDS: ASPIRIN enteric coated 81MG TABLET PO SCH (10:30)
[2023-02-20] MEDS: VITAMIN D3 25 MCG (1,000 UNITS) TABLET PO SCH (10:30)
[2023-02-20] MEDS: dexAMETHasone 6 MG TABLET PO SCH (10:31)
[2023-02-20] MEDS: PANTOPRAZOLE 40 MG TABLET PO SCH (10:31)
[2023-02-20] MEDS: CLOPIDOGREL 75 MG TABLET PO SCH (10:33)
[2023-02-20] MEDS: busPIRone 10 MG TABLET PO SCH ×2 (10:34→20:57)
[2023-02-20] MEDS: PROPRANOLOL 20 MG TABLET PO SCH ×2 (10:34→20:58)
[2023-02-20] MEDS: GABAPENTIN 300 MG CAPSULE PO SCH ×3 (10:34→18:20)
[2023-02-20] MEDS: FUROSEMIDE 40 MG TABLET PO SCH (10:35)
[2023-02-20] MEDS: amLODIPine 5 MG TABLET PO SCH (10:35)
[2023-02-20] MEDS: SERTRALINE 50 MG TABLET PO SCH (10:35)
[2023-02-20] MEDS: ENOXAPARIN 60 MG/0.6 ML SYRINGE SC SCH ×2 (10:35→20:58)
[2023-02-20] MEDS: inSUlin DETERMIR 1 UNIT/0.01 ML (CHARGE PER UNIT) SQ SCH (10:35)
[2023-02-20] MEDS: FAMOTIDINE 20 MG TABLET PO SCH (10:35)
[2023-02-20] MEDS: DOCUSATE SODIUM 100 MG CAPSULE PO SCH ×2 (10:36→20:59)
--- NOTE | 2023-02-20 10:52 | Progress Note - Hospitalist ---
Subjective HPI/CC On Admission Date Seen by Provider: Feb 20, 2023 Time Seen by Provider: 12:30 CC: Acute on chronic respiratory failure due to COVID PNA HPI: This is a 67yoWF clinic patient of [facility] who has a h/o O2 dependent COPD maintained on 4L/min of O2 who presented to [facility] for the second time yesterday with low sugar and anxiousness about COVID. Apparently she has been taking her scheduled insulin the past 3 days without eating and drinking or checking her sugar although she has a DEXCOM on her right arm. Her sugar was 38 this am and amp of D50 given. IV decadron initiated due to lung disease and hypoxia. Subjective/Events-last exam Much improved BP stable No falls Improved breathing Review of Systems General: Fatigue, Malaise Objective Exam Vital Signs Vital Signs Date Time Temp Pulse Resp B/P (MAP) Pulse Ox O2 Delivery O2 Flow Rate FiO2 02/20/23 15:47 36.6 65 15 169/70 (103) 96 Nasal Cannula 4.00 02/20/23 10:12 40 Capillary Refill : Less Than 3 Seconds General Appearance: No Apparent Distress, WD/WN, Chronically ill Respiratory: No Accessory Muscle Use, No Respiratory Distress, Decreased Breath Sounds Cardiovascular: Regular Rate, Rhythm Neurologic/Psychiatric: Alert, Oriented x3 Results/Procedures Lab Laboratory Tests 02/20/23 05:49 Patient resulted labs reviewed. Assessment/Plan Assessment and Plan Assess & Plan/Chief Complaint Assessment: Acute on chronic respiratory failure COVID PNA Hypoxia O2 dependent on 4L/min at home Former smoker HTN MARIELA Obesity Anxiety Plan: MO tomorrow Monitor closely TRACEY ROMAN DO Feb 20, 2023 10:52
--- NOTE | 2023-02-20 11:47 | Physical Therapy Daily Note ---
PT Daily Note-Current Subjective Pt agreeable to walk. Pain Section J - Health Conditions 1. Rarely or not at all 2. Occasionally 3. Frequently 4. Almost constantly 8. Unable to answer Pain Effect on Sleep: 2 Pain Interference with Therapy: 2 Pain Interference w/Day-to-Day: 2 Mental Status Attachments: Oxygen Transfers SCALE: Activities may be completed with or without assistive devices. 3-Yonbnzyqsz-jixoxrd completes the activity by him/herself with no assistance from a helper. 5-Set-up or Clean-up Assistance-helper sets up or cleans up; patient completes activity. [place] assists only prior to or following the activity. 4-Supervision or Touching Assistance-helper provides verbal cues and/or touching/steadying and/or contact guard assistance as patient completes activity. Assistance may be provided throughout the activity or intermittently. 3-Partial/Moderate Assistance-helper does LESS THAN HALF the effort. [place] lifts, holds or supports trunk or limbs, but provides less than half the effort. 2-Substantial/Maximal Assistance-helper does MORE THAN HALF the effort. [place] lifts or holds trunk or limbs and provides more than half the effort. 1-Xdwxqaczc-tgawgg does ALL the effort. Patient does none of the effort to complete the activity. Or, the assistance of 2 or more helpers is required for the patient to complete the activity. If activity was not attempted, code reason: 7-Patient Refused. 9-Not Applicable-not attempted and the patient did not perform the activity before the current illness, exacerbation or injury. 10-Not Attempted due to Environmental Limitations-(lack of equipment, weather restraints, etc.). 88-Not Attempted due to Medical Conditions or Safety Concerns. Sit to Stand (QC): 6 Chair/Oeb-kv-Yxqkl Xfer(QC): 6 Weight Bearing Right Lower Extremity: Right Full Weight Bearing Left Lower Extremity: Left Full Weight Bearing Gait Training Gait Assistive Device: FWW Ambulate 50ft x 2 trials using FWW and oxygen at 2L. Pt stable but SOB. Assessment Current Status: Good Progress Pt able to walk further today. She demonstrated good balance but was restricted by her SOB. PT Business Analytics Intern Goals Business Analytics Intern Goals PT [facility] Goals Time Frame: Mar 16, 2023 Roll Left & Right (QC): 6 Sit to Lying (QC): 6 Lying-Sitting on Side/Bed(QC): 6 Sit to Stand (QC): 6 Chair/Cle-os-Wsklp Xfer(QC): 6 Toilet Transfer (QC): 6 Does the Patient Walk: Yes Walk 10 feet (QC): 6 Walk 50ft with 2 Turns (QC): 6 Walk 150 ft (QC): 4 1 Step (curb) (QC): 4 PT Plan Treatment/Plan Treatment Plan: Continue Plan of Care Treatment Plan: Bed Mobility, Education, Functional Activity Vita, Functional Strength, Group Therapy, Gait, Safety, Therapeutic Exercise, Transfers Treatment Duration: Mar 16, 2023 Frequency: 6 times per week Estimated Hrs Per Day: .25 hour per day Patient and/or Family Agrees t: Yes Time Time In: 1130 Time Out: 1150 DATE: Feb 20, 2023 Total Billed Treatment Time: 20 Total Billed Treatment visit, Gt 20 min LEIGHA BURT PT Feb 20, 2023 11:47
[2023-02-20] MEDS: cefTRIAXone IV/IM 1,000 MG in NS (IVPB) 50 ML 50 ML IV SCH (20:59)
[2023-02-21 00:25] VITALS: BP 138/73
[2023-02-21 04:00] VITALS: BP 152/64
[2023-02-21 06:05] LABS: BASOPHILS % (AUTO) 0 % (0-10); EOSINOPHILS % (AUTO) 0 % (0-10); HEMOGLOBIN 10.7 g/dL (11.5-16.0)
[2023-02-21 06:07] LABS: HEMATOCRIT 35 % (35-52); LYMPHOCYTES # (AUTO) 1.5 10^3/uL (1.0-4.0); LYMPHOCYTES % (AUTO) 22 % (12-44); MEAN CORPUSCULAR HEMOGLOBIN 31 pg (25-34); MEAN CORPUSCULAR HGB CONC 31 g/dL (32-36); MEAN CORPUSCULAR VOLUME 100 fL (80-99); MEAN PLATELET VOLUME 11.3 fL (9.0-12.2); MONOCYTES # (AUTO) 0.8 10^3/uL (0.0-1.0); MONOCYTES % (AUTO) 11 % (0-12); NEUTROPHILS # (AUTO) 4.4 10^3/uL (1.8-7.8); NEUTROPHILS % (AUTO) 65 % (42-75); PLATELET COUNT 121 10^3/uL (130-400); WHITE BLOOD COUNT 6.9 10^3/uL (4.3-11.0)
[2023-02-21 06:32] LABS: ALBUMIN 3.1 GM/DL (3.2-4.5); BILIRUBIN,TOTAL 0.3 MG/DL (0.1-1.0); CALCIUM 8.4 MG/DL (8.5-10.1); CREATININE SERUM 1.57 MG/DL (0.60-1.30); MAGNESIUM 2.2 MG/DL (1.6-2.4); POTASSIUM 4.5 MMOL/L (3.6-5.0); TOTAL PROTEIN 7.4 GM/DL (6.4-8.2)
[2023-02-21] MEDS: inSUlin ASPART 1 UNIT/0.01 ML (PER UNIT) SC SCH ×6 (06:33→17:03)
[2023-02-21] MEDS: LEVOTHYROXINE 75 MCG TABLET PO SCH (06:37)
[2023-02-21 08:21] VITALS: BP 157/65
[2023-02-21] MEDS: TIOTROPIUM INH 4 GM (SPIRIVA Respimat) IH SCH (08:40)
[2023-02-21] MEDS: FLUTICASONE/VILANTEROL 100/25 MCG (7 DOSES) IH SCH (08:40)
[2023-02-21] MEDS: busPIRone 10 MG TABLET PO SCH (09:12)
[2023-02-21] MEDS: dexAMETHasone 6 MG TABLET PO SCH (09:12)
[2023-02-21] MEDS: ASPIRIN enteric coated 81MG TABLET PO SCH (09:12)
[2023-02-21] MEDS: AZITHROMYCIN 250 MG TABLET PO SCH (09:12)
[2023-02-21] MEDS: VITAMIN D3 25 MCG (1,000 UNITS) TABLET PO SCH (09:12)
[2023-02-21] MEDS: PANTOPRAZOLE 40 MG TABLET PO SCH (09:13)
[2023-02-21] MEDS: amLODIPine 5 MG TABLET PO SCH (09:13)
[2023-02-21] MEDS: FUROSEMIDE 40 MG TABLET PO SCH (09:13)
[2023-02-21] MEDS: CLOPIDOGREL 75 MG TABLET PO SCH (09:13)
[2023-02-21] MEDS: FAMOTIDINE 20 MG TABLET PO SCH (09:13)
[2023-02-21] MEDS: SERTRALINE 50 MG TABLET PO SCH (09:13)
[2023-02-21] MEDS: PROPRANOLOL 20 MG TABLET PO SCH (09:13)
[2023-02-21] MEDS: GABAPENTIN 300 MG CAPSULE PO SCH ×3 (09:14→19:03)
[2023-02-21] MEDS: DOCUSATE SODIUM 100 MG CAPSULE PO SCH (09:14)
[2023-02-21] MEDS: ENOXAPARIN 60 MG/0.6 ML SYRINGE SC SCH (09:15)
[2023-02-21] MEDS: inSUlin DETERMIR 1 UNIT/0.01 ML (CHARGE PER UNIT) SQ SCH (09:15)
[2023-02-21] MEDS ORDERED: CEFD300C3 PO (10:44)
[2023-02-21] MEDS ORDERED: DEXA6TAB PO (10:44)
--- NOTE | 2023-02-21 10:45 | D/C HH Face to Face Order ---
D/C HH Face to Face Orders Reconcile Patient Problems Problems Reviewed?: Yes Instructions for Patient HH Patient Instructions/FollowUp: PCP 1 week Physician to follow Patient: [facility] Discharge Diet for Home: ADA Diet Patient Problems: COVID Patient Data-Allergies,Ht & Wt Patient Allergies: Coded Allergies: No Known Drug Allergies (Unverified , 12/27/18) Height (Feet): 5 Height (Inches): 4.00 Weight (Pounds): 233 Weight (Ounces): 14.4 Home Health Need/Face to Face Date of Face to Face: Feb 21, 2023 Clinical Findings: Generalized weakness and fatigue, Instability, Muscle weakness I have seen Pt llau-qv-hnoa: Yes Discharged To: Home Diagnosis/Conditions: COVID Patient is Homebound due to: Muscle weakness, Shortness of breath/distress Homebound Status Due to the above stated illness, injury or surgical procedure (medical condition or diagnosis) and associated clinical findings, the patient is homebound because of his/her inability to leave home except with aid of a supportive device and/or person AND leaving the home requires a considerable and taxing effort or is medically contraindicated. Pt req the following assistanc: Walker Home Health Nursing Orders Home Health Services Order: Nursing Services, Teletypewriter Operator-Evaluate & Treat, Physical Therapy-Evaluate & Treat Home Health Infusion Therapy Line Start Date: Feb 17, 2023 Certify Stmt I certify that this patient is under my care and that I, a nurse practitioner or a physician; a cable splicer assistant working with me, had a face to face encounter that - meets the physician face to face encounter requirements with this patient as dated. TRACEY ROMAN DO Feb 21, 2023 10:45
--- NOTE | 2023-02-21 10:46 | Discharge Summary ---
Discharge Summary Hospital Course Was the Problem List Reviewed?: Yes Problems/Dx: (1) COVID-19 virus infection Status: Acute (2) Shortness of breath Status: Acute Hospital Course Date of Admission: Feb 19, 2023 at 11:20 Admission Diagnosis : [facility] Date of Discharge: 02/21/23 Discharge Diagnosis: [ ] Hospital Course: Uncomplicated but lengthy hospital course after COVID-19 infection causing exacerbation of COPD and bronchitis. Patient responded quickly to IV steroids and supportive care stable for discharge with close follow-up with PCP. She remains on her home oxygen at baseline. Labs and Pending Lab Test: Laboratory Tests 02/20/23 11:18: Glucometer 126H 02/20/23 16:45: Glucometer 162H 02/20/23 19:48: Glucometer 194H 02/21/23 05:50: White Blood Count 6.9, Red Blood Count 3.46L, Hemoglobin 10.7L, Hematocrit 35, Mean Corpuscular Volume 100H, Mean Corpuscular Hemoglobin 31, Mean Corpuscular Hemoglobin Concent 31L, Red Cell Distribution Width 14.6H, Platelet Count 121L, Mean Platelet Volume 11.3, Immature Granulocyte % (Auto) 2, Neutrophils (%) (Auto) 65, Lymphocytes (%) (Auto) 22, Monocytes (%) (Auto) 11, Eosinophils (%) (Auto) 0, Basophils (%) (Auto) 0, Neutrophils # (Auto) 4.4, Lymphocytes # (Auto) 1.5, Monocytes # (Auto) 0.8, Eosinophils # (Auto) 0.0, Basophils # (Auto) 0.0, Immature Granulocyte # (Auto) 0.1, Percent Immature Platelet Fraction 6.6, Sodium Level 140, Potassium Level 4.5, Chloride Level 103, Carbon Dioxide Level 30, Anion Gap 7, Blood Urea Nitrogen 29H, Creatinine 1.57H, Estimat Glomerular Filtration Rate 36, BUN/Creatinine Ratio 18, Glucose Level 100, Calcium Level 8.4L, Corrected Calcium 9.1, Magnesium Level 2.2, Total Bilirubin 0.3, Aspartate Amino Transf (AST/SGOT) 46H, Alanine Aminotransferase (ALT/SGPT) 46, Alkaline Phosphatase 121, Total Protein 7.4, Albumin 3.1L Home Meds Active Cefdinir 300 Mg Capsule 300 Mg PO BID Dexamethasone 6 Mg Tablet 6 Mg PO DAILY Reported Vitamin D3 (Cholecalciferol (Vitamin D3)) 25 Mcg (1000 Unit) Tablet 25 Mcg PO DAILY Trulicity (Dulaglutide) 4.5 Mg/0.5 Ml Pen.injctr 4.5 Mg SQ WEEK Insulin Degludec Pen (U-200) (Insulin Degludec) 200 Unit/Ml (3 Ml) Insuln.pen 164 Units SQ DAILY Novolog Flexpen (Insulin Aspart) 100 Unit/Ml (3 Ml) Solution 65 Units SQ 1200 &1800 BEFORE MEALS Novolog Flexpen (Insulin Aspart) 100 Unit/Ml (3 Ml) Solution 65 Units SQ 0800 BEFORE MEAL Clopidogrel (Clopidogrel Bisulfate) 75 Mg Tablet 75 Mg PO DAILY Aspirin EC (Aspirin) 81 Mg Tablet.dr 81 Mg PO DAILY Sertraline HCl 25 Mg Tablet 25 Mg PO DAILY Famotidine 20 Mg Tablet 20 Mg PO DAILY Furosemide 40 Mg Tablet 40 Mg PO DAILY Levothyroxine Sodium 75 Mcg Tablet 75 Mcg PO DAILY Buspirone HCl 10 Mg Tablet 10 Mg PO BID Calcitriol 0.25 Mcg Capsule 0.25 Mg PO MO,WE,FR Neurontin (Gabapentin) 300 Mg Capsule 300 Mg PO 1300,1800 Neurontin (Gabapentin) 300 Mg Capsule 600 Mg PO DAILY TAKES 2 (300MG) CAPS Simvastatin 20 Mg Tablet 20 Mg PO DAILY Pantoprazole Sodium 40 Mg Tablet.dr 40 Mg PO DAILY Amlodipine Besylate 5 Mg Tablet 5 Mg PO DAILY Advair Hfa 115-21 Mcg Inhaler (Fluticasone/Salmeterol) 115 Mcg-21 Mcg/Actuation Hfa.aer.ad 2 Puff IH BID Propranolol HCl 10 Mg Tablet 10 Mg PO BID Spiriva (Tiotropium [place]) 1 Inh Aerp 2 Puff PO DAILY Assessment/Pt Instructions PCP in 1 week Discharge Planning: <30 minutes discharge planning Discharge Instructions Discharge Diet: No Restrictions Discharge Physical Examination Vital Signs Vital Signs Date Time Temp Pulse Resp B/P (MAP) Pulse Ox O2 Delivery O2 Flow Rate FiO2 02/21/23 08:46 97 Nasal Cannula 4.00 02/21/23 08:21 36.1 69 18 157/65 (95) 02/20/23 10:12 40 General Appearance: No Apparent Distress, WD/WN, Chronically ill Respiratory: Lungs Clear, Normal Breath Sounds Allergies: Coded Allergies: No Known Drug Allergies (Unverified , 12/27/18) Discharge Summary Date of Admission Feb 19, 2023 at 11:20 Date of Discharge Discharge Date: Feb 21, 2023 Admission Diagnosis Assessment: Acute on chronic respiratory failure COVID PNA Hypoxia O2 dependent on 4L/min at home Former smoker HTN MARIELA Obesity Anxiety Plan: ICU High risk for intubation Monitor closely Discharge Diagnosis Assessment: Acute on chronic respiratory failure COVID PNA Hypoxia O2 dependent on 4L/min at home Former smoker HTN MARIELA Obesity Anxiety Plan: DC tomorrow Monitor closely TRACEY ROMAN DO Feb 21, 2023 10:46
[2023-02-21 15:40] VITALS: BP 137/64
== END 2023-02-21 19:24 | disposition home or self-care (01) | DRG 177 ==
LOC: EDUNIT# 19:02 → ER FS 19:04 → ICU 22:19 → OBSVTOIN 02-19 11:20 → 4TH 02-19 20:58
PROVIDERS: ADMIT Internal Medicine; ATTEND Internal Medicine
DX: U07.1 COVID-19 (principal); J12.82 Pneumonia due to coronavirus disease 2019; J96.21 Acute and chronic respiratory failure with hypoxia; J44.1 Chronic obstructive pulmonary disease with (acute) exacerbation; N17.9 Acute kidney failure, unspecified; Z68.43 Body mass index [BMI] 50.0-59.9, adult; E11.40 Type 2 diabetes mellitus with diabetic neuropathy, unspecified; I10 Essential (primary) hypertension; G47.33 Obstructive sleep apnea (adult) (pediatric); E66.9 Obesity, unspecified; F41.9 Anxiety disorder, unspecified; K52.9 Noninfective gastroenteritis and colitis, unspecified; D69.6 Thrombocytopenia, unspecified; Z87.891 Personal history of nicotine dependence; Z99.81 Dependence on supplemental oxygen; Z79.4 Long term (current) use of insulin; Z28.310 Unvaccinated for COVID-19
CPT/HCPCS: 36415; 36600; 71045; 80053; 82805; 82947; 83735; 84100; 85025; 86141; 94640; 94760; G0378